=== PATIENT | female | born 1930 | race Caucasian/White ===

== ENCOUNTER 2017-11-02 16:10 | Inpatient (IN) | payer BC, OTHER ==
--- NOTE | 2017-11-02 16:14 | PDOC ---
Rapid Medical Evaluation Time Seen by Provider: 11/02/17 16:12 Medical Evaluation: Allergies Allergy/AdvReac Type Severity Reaction Status Date / Time No Known Allergies Allergy Verified 12/09/14 10:28 11/02/17 16:12 I have performed a brief in-person evaluation of this patient. The patient presents with a chief complaint of: headaches x 2 weeks, vision has been double and blurry for 2 weeks, weak, sleeping all day, no appetite - saw Dr. Cuba on for abx for sinusitis, saw ENT on , sent for CT on Sunday and was negative, currently denies headache, "i'm just tired and weak" Pertinent physical exam findings: well appearing I have ordered the following: labs, urine, ekg The patient will proceed to the ED for further evaluation. Discharge Disposition - Diagnosis Fatigue - Referrals - Patient Instructions - Post Discharge Activity
[2017-11-02 16:18] VITALS: BMI 32.8
--- NOTE | 2017-11-02 16:54 | PDOC ---
History of Present Illness - General Chief Complaint: Weakness Stated Complaint: PCP SENT/ADMISSION Time Seen by Provider: 11/02/17 16:12 - History of Present Illness Initial Comments: 11/02/17 17:10 Ms. Elmore is an 87 yo female w/ pmh of HTN who presents for evaluation of 2 weeks of chronic headache with generalized weakness. She reports that she had initially presented to her PCP (Dr. Cuba) for congestion and received an antibiotic but that this did not help. She then presented to ENT (Dr. Peterson) and had a CT 3 days after a 1 day history of blurry vision (negative). She presents today as she went again to PCP for evaluation and was told to come to ER for further evaluation. The patient denies chest pain, shortness of breath, headache and dizziness. Denies fever, chills, nausea, vomit, diarrhea and constipation. Denies dysuria, frequency, urgency and hematuria. Allergies: NKDA Past History - Past Medical History Allergies/Adverse Reactions: Allergies Allergy/AdvReac Type Severity Reaction Status Date / Time No Known Allergies Allergy Verified 11/02/17 16:12 Home Medications: Ambulatory Orders Calcium Carbonate [Calcium] 600 mg PO DAILY 12/09/14 Cholecalciferol (Vitamin D3) [Vitamin D3] 1,000 unit PO DAILY 12/09/14 Folic Acid - 1 mg PO DAILY 12/09/14 Gabapentin [Neurontin -] 400 mg PO ASDIR 12/09/14 Lisinopril/Hydrochlorothiazide [Lisinopril-Hctz 20-25 mg Tab] 1 each PO DAILY [place]-3 Fatty Acids [Fish Oil] 0 mg PO DAILY 12/09/14 Famotidine [Acid Director Of [employer] Medicine] 20 mg PO BID 11/02/17 COPD: No HTN: Yes Other medical history: BROKEN ANKLE - Suicide/Smoking/Psychosocial Hx Smoking History: Never smoked Information on smoking cessation initiated: No Hx Alcohol Use: Yes Drug/Substance Use Hx: No Review of Systems - Review of Systems Comments:: 11/02/17 21:11 GENERAL/CONSTITUTIONAL: +Generalized weakness. No fever or chills. HEAD, EYES, EARS, NOSE AND THROAT: +1 day of blurry vision as described. No ear pain or discharge. No sore throat. CARDIOVASCULAR: No chest pain or shortness of breath RESPIRATORY: No cough, wheezing, or hemoptysis. GASTROINTESTINAL: No nausea, vomiting, diarrhea or constipation. GENITOURINARY: No dysuria, frequency, or change in urination. MUSCULOSKELETAL: No joint or muscle swelling or pain. No neck or back pain. SKIN: No rash NEUROLOGIC: No headache, vertigo, loss of consciousness, or change in strength/ sensation. ENDOCRINE: No increased thirst. No abnormal weight change HEMATOLOGIC/LYMPHATIC: No anemia, easy bleeding, or history of blood clots. ALLERGIC/IMMUNOLOGIC: No hives or skin allergy. *Physical Exam - Vital Signs Last Vital Signs Temp Pulse Resp BP Pulse Ox 98.8 F 100 H 18 136/75 100 11/02/17 16:13 11/02/17 16:13 11/02/17 16:13 11/02/17 16:13 11/02/17 16:13 - Physical Exam Comments: 11/02/17 21:12 GENERAL: Awake, alert, and fully oriented, in no acute distress HEAD: No signs of trauma, normocephalic, atraumatic EYES: PERRLA, EOMI, sclera anicteric, conjunctiva clear ENT: Auricles normal inspection, hearing grossly normal, nares patent, oropharynx clear without exudates. Moist mucosa NECK: Normal ROM, supple, no lymphadenopathy, JVD, or masses LUNGS: No distress, speaks full sentences, clear to auscultation bilaterally HEART: Regular rate and rhythm, normal S1 and S2, no murmurs, rubs or gallops, peripheral pulses normal and equal bilaterally. ABDOMEN: Soft, nontender, normoactive bowel sounds. No guarding, no rebound. No masses EXTREMITIES: Normal inspection, Normal range of motion, no edema. No clubbing or cyanosis. NEUROLOGICAL: Cranial nerves II through XII grossly intact. Normal speech, normal gait, no focal sensorimotor deficits SKIN: Warm, Dry, normal turgor, no rashes or lesions noted. ED Treatment Course - LABORATORY CBC & Chemistry Diagram: 11/02/17 16:48 11/02/17 16:48 Medical Decision Making - Medical Decision Making 11/02/17 21:26 Ms. Elmore is an 87 yo female w/ pmh as described who presents for evaluation of new onset fatigue with a 1 day history of vision changes. Broad workup started; CT held as patient had one earlier this week with negative findings. Patient noted to have elevated PT with INR, INR, WBC, and Liver enzymes. Discussed with PCP who would like admission for workup of findings with additional abdominal CT. Will comply. Laboratory Results - last 24 hr 11/02/17 11/02/17 11/02/17 16:15 16:48 16:48 WBC RBC Hgb Hct MCV MCH MCHC RDW Plt Count MPV Neutrophils % Lymphocytes % Monocytes % Eosinophils % Basophils % PT with INR 20.00 H INR 1.77 H Sodium Potassium Chloride Carbon Dioxide Anion Gap BUN Creatinine Creat Clearance w eGFR Random Glucose Lactic Acid Calcium Magnesium 1.3 L Total Bilirubin AST ALT Alkaline Phosphatase Creatine Kinase Troponin I B-Natriuretic Peptide Total Protein Albumin Urine Color Yellow Urine Appearance Slcloudy Urine pH 5.0 Ur Specific Winner 1.014 Urine Protein Negative Urine Glucose (UA) Negative Urine Ketones Negative Urine Blood 1+ H Urine Nitrite Negative Urine Bilirubin Negative Urine Urobilinogen Negative Ur Leukocyte Esterase Negative Urine WBC (Auto) 1 Urine RBC (Auto) 1 Ur Epithelial Cells Rare Urine Mucus Rare 11/02/17 11/02/17 11/02/17 16:48 16:48 16:48 WBC 13.1 H RBC 3.50 L Hgb 12.7 Hct 35.6 MCV 101.9 H MCH 36.5 H MCHC 35.8 RDW 12.5 Plt Count 279 MPV 9.2 Neutrophils % 71.4 Lymphocytes % 15.7 Monocytes % 11.0 H Eosinophils % 1.5 Basophils % 0.4 PT with INR INR Sodium 132 L Potassium 3.7 Chloride 94 L Carbon Dioxide 28 Anion Gap 10 BUN 19 H Creatinine 0.8 Creat Clearance w eGFR > 60 Random Glucose 132 H Lactic Acid Calcium 8.2 L Magnesium Total Bilirubin 0.5 AST 61 H ALT 96 H Alkaline Phosphatase 56 Creatine Kinase 47 Troponin I < 0.02 B-Natriuretic Peptide 309.33 Total Protein 6.8 Albumin 2.3 L Urine Color Urine Appearance Urine pH Ur Specific Winner Urine Protein Urine Glucose (UA) Urine Ketones Urine Blood Urine Nitrite Urine Bilirubin Urine Urobilinogen Ur Leukocyte Esterase Urine WBC (Auto) Urine RBC (Auto) Ur Epithelial Cells Urine Mucus 11/02/17 17:44 WBC RBC Hgb Hct MCV MCH MCHC RDW Plt Count MPV Neutrophils % Lymphocytes % Monocytes % Eosinophils % Basophils % PT with INR INR Sodium Potassium Chloride Carbon Dioxide Anion Gap BUN Creatinine Creat Clearance w eGFR Random Glucose Lactic Acid 1.4 Calcium Magnesium Total Bilirubin AST ALT Alkaline Phosphatase Creatine Kinase Troponin I B-Natriuretic Peptide Total Protein Albumin Urine Color Urine Appearance Urine pH Ur Specific Winner Urine Protein Urine Glucose (UA) Urine Ketones Urine Blood Urine Nitrite Urine Bilirubin Urine Urobilinogen Ur Leukocyte Esterase Urine WBC (Auto) Urine RBC (Auto) Ur Epithelial Cells Urine Mucus *DC/Admit/Observation/Transfer Diagnosis at time of Disposition: Weakness Fatigue Qualifiers: Fatigue type: unspecified Qualified Code(s): R53.83 - Other fatigue Hematuria Qualifiers: Hematuria type: unspecified type Qualified Code(s): R31.9 - Hematuria, unspecified - Discharge Dispostion Admit: Yes - Referrals Referrals: Viviana Cuba [Primary Care Provider] - - Patient Instructions - Post Discharge Activity
--- NOTE | 2017-11-02 17:18 | PDOC ---
Attending Attestation - Resident Resident Name: Nixon Messina - ED Attending Attestation I have performed the following: I have examined & evaluated the patient, The case was reviewed & discussed with the resident, I agree w/resident's findings & plan, Exceptions are as noted <Vesta Ferraro - Last Filed: 11/02/17 17:17> - HPI HPI: 11/02/17 17:26 The patient is a 87 year old female, with a significant past medical history of hypertension, who presents to the emergency department with 2 weeks of chronic headache and generalized weakness. Patient reports she was being treated for sinusitis, with antibiotics and Claritin by her PCP, Dr. Viviana Cuba. Patient reports minimal improvement of symptoms, and states she followed up with ENT, Dr. Peterson, who ordered a head CT which was negative. Patient reports she finished her Antibiotic course 2 days ago, and since has noticed mild loose stools and decreased appetite. Patient reports she has lost 5 pounds over the past week. She reports associated generalized nonfocal weakness. She states she had an episode of blurrry vision weeks ago, prior to head CT, which has since resolved. She denies any abdominal pain, nausea, vomiting, constipation, melena , or hematochezia. She denies any recent fever, chills, headache, dizziness, or cough. She denies any dysuria, hematuria, frequency, or urgency. She denies any recent travel or sick contacts. - Physicial Exam PE: 11/02/17 21:22 GENERAL: Awake, alert, and fully oriented, in no acute distress HEAD: No signs of trauma EYES: PERRLA, EOMI, sclera anicteric, conjunctiva clear ENT: Auricles normal inspection, hearing grossly normal, nares patent. Moist mucosa NECK: Normal ROM, supple, no lymphadenopathy, JVD, or masses LUNGS: Breath sounds equal, clear to auscultation bilaterally. No wheezes, and no crackles HEART: Regular rate and rhythm, normal S1 and S2, no murmurs, rubs or gallops ABDOMEN: Soft, nontender, normoactive bowel sounds. No guarding, no rebound. No masses EXTREMITIES: Normal range of motion, no edema. No clubbing or cyanosis. No cords, erythema, or tenderness. DP/PT pulses 2+ and symmetric. NEUROLOGICAL: Moves all extremities. Normal speech, normal gait SKIN: Warm, Dry, normal turgor, no rashes or lesions noted. - Medical Decision Making 11/02/17 17:27 First call placed to Dr. Cuba at 17:18. Awaiting call back. Case discussed with Dr. Cuba at 17:20. Second call placed to Dr. Cuba at 21:14. Awaiting call back. Case discussed with Dr. Cuba at 21:21. <Topher Urena - Last Filed: 11/02/17 21:23> Heart Score/ECG Review #1 General ECG Interpretation: Sinus Rhythm, Normal Rate (90), Normal Intervals, No acute ischemic changes <Vesta Ferraro - Last Filed: 11/02/17 17:17> Critical Care Time/MDM Note - Medical Decision Making Note: 11/02/17 17:28 Documentation prepared by Topher Urena, acting as front office medical assistant for Vesta Ferraro MD. <Topher Urena - Last Filed: 11/02/17 21:23>
[2017-11-02 17:49] LABS: BASO % 0.4 % (0-2.0); EOS % 1.5 % (0-4.5); HEMATOCRIT 35.6 % (32.4-45.2); HEMOGLOBIN 12.7 GM/dL (10.7-15.3); LYMPH % 15.7 % (8-40); MCH 36.5 pg (25.7-33.7); MCHC 35.8 g/dl (32.0-36.0); MEAN CELL VOLUME 101.9 fl (80-96); MEAN PLT VOLUME 9.2 fl (7.5-11.1); NEUT % 71.4 % (42.8-82.8); PLATELET COUNT 279 K/MM3 (134-434); RDW 12.5 % (11.6-15.6); WHITE BLOOD COUNT 13.1 K/mm3 (4.0-10.0)
[2017-11-02 17:50] LABS: ALBUMIN 2.3 g/dl (3.4-5.0); ANION GAP 10 (8-16); BILIRUBIN,TOTAL 0.5 mg/dL (0.2-1.0); BLOOD UREA NITROGEN 19 mg/dL (7-18); CALCIUM 8.2 mg/dL (8.5-10.1); CHLORIDE 94 mmol/L (98-107); CO2 28 mmol/L (21-32); CREATININE 0.8 mg/dL (0.55-1.02); GLUCOSE,RANDOM 132 mg/dL (74-106); POTASSIUM 3.7 mmol/L (3.5-5.1); SGOT/AST 61 U/L (15-37); SGPT/ALT 96 U/L (12-78); SODIUM 132 mmol/L (136-145); TOT PROT 6.8 g/dl (6.4-8.2)
[2017-11-02 17:54] LABS: ALK PHOS 56 U/L (45-117)
[2017-11-02 18:05] LABS: INR 1.77 (0.82-1.09)
[2017-11-02] MEDS ORDERED: SODIUM CHLORIDE 1,000 ML IV STA (19:04)
[2017-11-02 20:46] LABS: URINE APPEARANCE SLCLOUDY; URINE BILIRUBIN NEGATIVE (<2.0 mg/dL); URINE COLOR YELLOW; URINE GLUCOSE (UA) NEGATIVE (NEGATIVE); URINE KETONE NEGATIVE (NEGATIVE); URINE LEUK ESTERASE NEGATIVE (NEGATIVE); URINE NITRITE NEGATIVE (NEGATIVE); URINE PROTEIN NEGATIVE (NEGATIVE); URINE UROBILINOGEN NEGATIVE mg/dL (0.2-1.0)
[2017-11-02 20:56] LABS: EPI CELLS RARE /HPF (FEW); URINE MUCUS RARE
[2017-11-02] MEDS ORDERED: GABAPENTIN 400 MG CAPSULE (FP) PO SCH (21:30)
[2017-11-02] MEDS ORDERED: GABAPENTIN 100 MG CAPSULE (FP) ONE (21:31)
--- NOTE | 2017-11-03 06:52 | HP ---
Admitting History and Physical - Primary Care Physician PCP: Viviana Cuba S - Admission Chief Complaint: general weakness History of Present Illness: Ms. Elmore is an 87 yo female hx of HTN MDS, hemochromatosis who presents for evaluation of 2 weeks of chronic headache with generalized weakness. She initially presented to me for frontal headaches and sinus congestion and received an antibiotic but that this did not help. She then presented to ENT ( Dr. Peterson) and had a CT 3 days after a 1 day history of blurry vision (negative). Her granddaughter called the office that Edwina feels very weak and not herself, was told to radha in the office where she looked weak and sick and was sent to ER for evaluation. She does not have headaches anymore, no double vision but reports some blurred vision with both eyes. No fever/chills no other c/o. History Source: Patient, Family Member, Medical Record Limitations to Obtaining History: No Limitations - Past Medical History Cardiovascular: Yes: HTN Heme/Onc: Yes: Hemochromatosis Musculoskeletal: Yes: Osteoarthritis - Advance Directives Advance Directives: Yes: Health Care Proxy - Smoking History Smoking history: Never smoked - Alcohol/Substance Use Hx Alcohol Use: Yes History of Substance Use: reports: None - Social History Usual Living Arrangement: Yes: Alone ADL: Independent History of Recent Travel: No Home Medications - Allergies Allergies/Adverse Reactions: Allergies Allergy/AdvReac Type Severity Reaction Status Date / Time No Known Allergies Allergy Verified 11/02/17 16:12 - Home Medications Home Medications: Ambulatory Orders Calcium Carbonate [Calcium] 600 mg PO DAILY 12/09/14 Cholecalciferol (Vitamin D3) [Vitamin D3] 1,000 unit PO DAILY 12/09/14 Folic Acid - 1 mg PO DAILY 12/09/14 Gabapentin [Neurontin -] 400 mg PO PRN 12/09/14 Lisinopril/Hydrochlorothiazide [Lisinopril-Hctz 20-25 mg Tab] 1 each PO DAILY [place]-3 Fatty Acids [Fish Oil] 0 mg PO DAILY 12/09/14 Famotidine [Acid [place] [employer]er] 20 mg PO PRN 11/02/17 Family Disease History - Family Disease History Family History: Unremarkable Review of Systems - Review of Systems Constitutional: reports: Loss of Appetite, Weakness. denies: Chills, Fever, Lethargy Eyes: reports: Blurred Vision. denies: Blind Spots, Double Vision, Eye Pain HENT: denies: Ear Pain, Epistaxis Neck: denies: Stiffness, Tenderness Cardiovascular: denies: Chest Pain, Edema, Shortness of Breath Respiratory: denies: Cough, SOB Gastrointestinal: denies: Abdominal Pain, Constipation, Diarrhea, Vomiting Genitourinary: denies: Dysuria, Flank Pain Musculoskeletal: denies: Back Pain, Joint Pain Integumentary: denies: Rash, Wound Neurological: reports: Headache, Weakness. denies: Change in LOC, Change in Speech, Confusion, Dizziness, Parasthesia, Unsteady Gait Endocrine: denies: Excessive Sweating Hematology/Lymphatic: denies: Easily Bruised, Excessive Bleeding Psychiatric: denies: Anxiety, Depression, Suicidal Physical Examination Vital Signs: Vital Signs Temperature 99.0 F 11/03/17 05:50 Pulse Rate 86 11/03/17 05:50 Respiratory Rate 20 11/03/17 05:50 Blood Pressure 117/51 11/03/17 05:50 O2 Sat by Pulse Oximetry (%) 96 11/03/17 01:30 Constitutional: Yes: No Distress, Calm Eyes: Yes: Conjunctiva Clear HENT: Yes: Atraumatic Neck: Yes: Supple Cardiovascular: Yes: Regular Rate and Rhythm Respiratory: Yes: CTA Bilaterally Gastrointestinal: Yes: Soft. No: Tenderness Renal/: No: CVA Tenderness - Left, CVA Tenderness - Right Musculoskeletal: No: Joint Stiffness, Joint Swelling Extremities: No: Cold, Cool, Cyanosis Edema: No Integumentary: No: Rash, Venous Stasis Changes Neurological: Yes: WNL, Alert, Oriented ...Motor Strength: WNL Psychiatric: Yes: WNL, Alert, Oriented. No: Agitated, Suicidal Ideation Labs: CBC, BMP 11/02/17 16:48 11/02/17 16:48 Imaging - Results Chest X-ray: Report Reviewed Other: Report Reviewed Assessment/Plan 87 yo female hx of HTN MDS hemochromatosis who presents for evaluation of 2 weeks of chronic headache with generalized weakness. r/o CVA? brain aneurysm, r/o infection r/o autoimmune ds admit IVF check labs, high WBC but CXR and UA negative and pt afebrile; hold antibiotics fo now awaiting cultures brain MRI will ask neurology in consult and heme also noted to have high LFTs and coagulopathy high INR - GI eval r/o liver failue / sepsis; abdomen CT /o liver mets tests and previous consults reviewed and d/w pt and granddaughter, d/w ER dr rodriguez PFX DVT pfx TEDS SCDS no sq heparine b/o high INR t time 75 min
[2017-11-03 08:09] LABS: INR 1.88 (0.82-1.09); PROTHROMBIN TIME (PATIENT) 21.2 SEC (9.98-11.88)
[2017-11-03 08:10] LABS: BASO % 0.4 % (0-2.0); EOS % 3.1 % (0-4.5); HEMATOCRIT 32.8 % (32.4-45.2); HEMOGLOBIN 11.4 GM/dL (10.7-15.3); LYMPH % 15.3 % (8-40); MCH 35.5 pg (25.7-33.7); MCHC 34.8 g/dl (32.0-36.0); MEAN PLT VOLUME 8.7 fl (7.5-11.1); MONO % 11.6 % (3.8-10.2); NEUT % 69.6 % (42.8-82.8); PLATELET COUNT 251 K/MM3 (134-434); RBC 3.22 M/mm3 (3.60-5.2); RDW 11.8 % (11.6-15.6); WHITE BLOOD COUNT 12.2 K/mm3 (4.0-10.0)
[2017-11-03 08:20] LABS: ALBUMIN 2.1 g/dl (3.4-5.0); ALK PHOS 46 U/L (45-117); ANION GAP 8 (8-16); BILIRUBIN,TOTAL 0.5 mg/dL (0.2-1.0); BLOOD UREA NITROGEN 15 mg/dL (7-18); CALCIUM 8.1 mg/dL (8.5-10.1); CHLORIDE 98 mmol/L (98-107); CO2 29 mmol/L (21-32); CREATININE 0.7 mg/dL (0.55-1.02); GLUCOSE,RANDOM 118 mg/dL (74-106); POTASSIUM 3.8 mmol/L (3.5-5.1); SGOT/AST 54 U/L (15-37); SGPT/ALT 82 U/L (12-78); SODIUM 135 mmol/L (136-145)
[2017-11-03] MEDS: SODIUM CHLORIDE 1,000 ML IV SCH (08:22)
--- NOTE | 2017-11-03 08:46 | EKG ---
Test Reason : Blood Pressure : / mmHG Vent. Rate : 095 BPM Atrial Rate : 095 BPM P-R Int : 150 ms QRS Dur : 078 ms QT Int : 356 ms P-R-T Axes : 063 -05 065 degrees QTc Int : 447 ms SINUS RHYTHM WITH PREMATURE ATRIAL COMPLEXES OTHERWISE NORMAL ECG WHEN COMPARED WITH ECG OF 17-AUG-2010 14:48, PREMATURE ATRIAL COMPLEXES ARE NOW PRESENT VENT. RATE HAS INCREASED BY 31 BPM Confirmed by TYRONE WALDEN, YOUNG ([id number]) on 11/03/2017 8:46:19 AM Referred By: Confirmed By:YOUNG HANSEN MD
[2017-11-03] MEDS: CALCIUM (OYSTER SHELL) 500 MG TABLET (FP) PO SCH (09:10)
[2017-11-03] MEDS: CHOLECALCIFEROL (VITAMIN D3) 1,000 UNIT TABLET (FP) PO SCH (09:10)
[2017-11-03] MEDS: FOLIC ACID 1 MG TABLET (FP) PO SCH (09:10)
[2017-11-03] MEDS ORDERED: LISINOPRIL 5 MG TABLET (FP) PO SCH (10:00)
[2017-11-03] MEDS ORDERED: PATIENT'S OWN MEDICATION (NON-FORMULARY) (Calcium Carbonate [Calcium] 600 MG) PO SCH (10:00)
--- NOTE | 2017-11-03 14:20 | PN ---
Progress Note (short form) - Note Progress Note: GI CONSULTATION PT SEEN AND EXAMINED FAMILY MEMEBER AT BEDSIDE TO AID WITH HX PLEASE SEE THE COMPLETE CONSULT DICTATION NO EVIDENCE OF FULMINANT LIVER FAILURE AT THIS TIME F/U LFT'S PLEASE D/C ALL UNNECESSARY MEDS WILL NEED F/U LIVER IMAGING TO COMPARE TO SONO OF 08/2017---CAN BE DONE OUTPATIENT THANKS, MD ANOOP
[2017-11-03] MEDS ORDERED: GABAPENTIN 400 MG CAPSULE (FP) PO PRN ×2 (14:53→15:08)
--- NOTE | 2017-11-03 15:07 | CONS ---
GASTROENTEROLOGY CONSULTATION DATE OF CONSULTATION: 11/03/2017 I was asked by Dr. Cuba to evaluate the patient for elevated liver enzymes. The patient is an 87-year-old white female who is a limited informant of her medical history. A lot of it comes from the chart and her relative at the bedside. Apparently, the patient has a past medical history. She reports only a history of hypertension, for which she takes lisinopril, and she states that she has had no GI issues in the past. She has seen Dr. Chávez in the past as an outpatient for colonoscopy years ago that she believes was normal. She says she was complaining of chronic headache and head pain for the past 2 weeks and she had been placed on Claritin and amoxicillin by Dr. Cuba for a possible sinusitis. She had minimal improvement of symptoms. She was seen by Dr. Peterson who ordered a CAT scan of the head which was negative. She finished her antibiotics 2 days ago and had had mild stools, decreased appetite. She lost some weight and she had some nonfocal weakness. She reported blurry vision which has since resolved. Apparently, she was admitted to the hospital for evaluation, was noted to have minimal evaluation of her liver enzymes, and we are called for evaluation. She tells me she has had no history of liver disease in the past. She has had no history of hepatitis. No drug usage or significant alcohol intake. She has never been told of liver disease or hepatitis. She does not think she has had liver enzyme elevation in the past, but she is not certain. The patient does not smoke either and she cannot recall her outpatient medications. She believes that all she takes is some lisinopril and some vitamins. The patient said that she has had a cholecystectomy years ago. She has no known drug allergies. Her medications according to the hospital chart include calcium, vitamin D, folic acid, Neurontin, lisinopril, hydrochlorothiazide, fish oil, and Pepcid. PHYSICAL EXAMINATION: General: The patient on physical exam is an overweight woman in no acute distress. She is moving about easily, lying in bed. She is alert and oriented. HEENT: Her sclerae are anicteric. Neck: Supple. Heart: Regular. Abdomen: Obese and quite soft. Bowel sounds are active. There are no masses, rebound or guarding. There is no tenderness to deep palpation. According to the EMR, she did have a sonogram performed of the abdomen. This was in August 2017 and she was noted to have diffuse fatty infiltration of the liver with a left lobe cyst, a possible hypoechoic mass in the caudate lobe but that was felt to represent focal-fatty sparing. In addition, the patient was not noted to have any biliary ductal dilatation or any evidence of reversal of flow in the portal vein. There were no significant findings noted on that study. In review of her lab data, it is noted that in 2010 was her last LFTs in this computer system. Her AST was 31 on admission. It is now 61. Her ALT was 22. It is now 96. However, looking at the rest of her current liver enzymes, everything is normal. It is noted that her total bilirubin is 0.5 and her alkaline phosphatase is 46. Her SMA-7 is unremarkable. Her coagulation studies, she has an INR of 1.88. Her white count was 13 on admission, it is now 12, with a hemoglobin and hematocrit of 11/32, and MCV of 102, and a platelet count of 251,000. So, it is my impression that the patient is an 87-year-old white female who is obese who likely has some fatty liver. She has hypertension without significant past medical history. She is status post cholecystectomy. She had a sonogram in August noting what is likely focal-fatty sparing with a fatty liver. At this time, she has a mild transaminitis of unclear etiology. It is possible it could be due to a recent infection that she had. It is possible that she had a viral element. It is possible that it was the antibiotic. It is unclear whether she was on amoxicillin or Augmentin where the latter is known to cause LFT enzyme elevation. It is unclear if it is just due to underlying worsening of her fatty liver. However, the fact that her coagulation studies appear stable and her bilirubin is perfectly normal at 0.5 there is currently no evidence of liver failure for which we were called to evaluate. Speaking with the family member, I have explained that I think as her medical condition improves and some of these medications are tapered off I think her liver enzymes will normalize. If they do not, then we can proceed with further evaluation. At that time, it would be more appropriate to send off chronic liver markers, although at age 87 I doubt she has new onset of liver disease, but we would want to follow up sonogram and/or CAT scan to assess the possible hypoechoic lesion in the caudate lobe of the liver. However, that could be done as an outpatient. The patient appears quite comfortable. At this time, I would recommend continuing to follow the LFTs and discontinue any unnecessary medication. JASON DAVALOS M.D. NEETU/[id number]
[2017-11-03] MEDS: ACETAMINOPHEN 325 MG TABLET (FP) PO PRN (17:25)
--- NOTE | 2017-11-03 17:28 | CONSULT ---
Consult - text type - Consultation Consultation Note: The patient is a 87 year old female, with a significant past medical history of hypertension, who presents with 2 weeks of chronic headache and generalized weakness. Patient reports she was treated for sinusitis, with antibiotics and Claritin by her PCP, Dr. Cecile Cuba.She was seen by ENT, Dr. Peterson, who ordered a head CT which was negative.Patient reports she has lost 5 pounds over the past week. She reports associated generalized nonfocal weakness. She states she had an episode of blurrry vision weeks ago, prior to head CT, which has since resolved. She denies any abdominal pain, nausea, vomiting, constipation, melena, or hematochezia. PMH HTN Last Vital Signs Temp Pulse Resp BP Pulse Ox 98.2 F 83 20 139/72 95 11/03/17 14:19 11/03/17 14:19 11/03/17 14:19 11/03/17 14:19 11/03/17 09:00 Cor: RSR, No murmurs, No gallops Lungs: Clear to P&A Abd: Soft, Normal bowel sounds, No organomegaly Ext:No significant edema No breast masses Laboratory Last Values WBC 12.2 K/mm3 (4.0-10.0) H 11/03/17 07:35 RBC 3.22 M/mm3 (3.60-5.2) L 11/03/17 07:35 Hgb 11.4 GM/dL (10.7-15.3) D 11/03/17 07:35 Hct 32.8 % (32.4-45.2) 11/03/17 07:35 MCV 102.0 fl (80-96) H 11/03/17 07:35 MCH 35.5 pg (25.7-33.7) H 11/03/17 07:35 MCHC 34.8 g/dl (32.0-36.0) 11/03/17 07:35 RDW 11.8 % (11.6-15.6) 11/03/17 07:35 Plt Count 251 K/MM3 (134-434) 11/03/17 07:35 MPV 8.7 fl (7.5-11.1) 11/03/17 07:35 Neutrophils % 69.6 % (42.8-82.8) 11/03/17 07:35 Lymphocytes % 15.3 % (8-40) 11/03/17 07:35 Monocytes % 11.6 % (3.8-10.2) H 11/03/17 07:35 Eosinophils % 3.1 % (0-4.5) D 11/03/17 07:35 Basophils % 0.4 % (0-2.0) 11/03/17 07:35 ESR 99 mm/hr (0-30) H 11/02/17 21:33 PT with INR 21.20 SEC (9.98-11.88) H 11/03/17 07:35 INR 1.88 (0.82-1.09) H 11/03/17 07:35 Fibrinogen > 646.0 mg/dL (238-498) H 11/03/17 15:48 D-Dimer 1875 ng/ml (0-500) H 11/03/17 15:48 Sodium 135 mmol/L (136-145) L 11/03/17 07:35 Potassium 3.8 mmol/L (3.5-5.1) 11/03/17 07:35 Chloride 98 mmol/L (98-107) 11/03/17 07:35 Carbon Dioxide 29 mmol/L (21-32) 11/03/17 07:35 Anion Gap 8 (8-16) 11/03/17 07:35 BUN 15 mg/dL (7-18) 11/03/17 07:35 Creatinine 0.7 mg/dL (0.55-1.02) 11/03/17 07:35 Creat Clearance w eGFR > 60 (>60) 11/03/17 07:35 Random Glucose 118 mg/dL (74-106) H 11/03/17 07:35 Lactic Acid 1.4 mmol/L (0.0-2.0) 11/02/17 17:44 Calcium 8.1 mg/dL (8.5-10.1) L 11/03/17 07:35 Magnesium 1.3 mg/dL (1.8-2.4) L 11/02/17 16:15 Total Bilirubin 0.5 mg/dL (0.2-1.0) 11/03/17 07:35 AST 54 U/L (15-37) H 11/03/17 07:35 ALT 82 U/L (12-78) H 11/03/17 07:35 Alkaline Phosphatase 46 U/L (45-117) 11/03/17 07:35 Ammonia 10.57 umol/L (11-32) L 11/02/17 21:33 Creatine Kinase 47 IU/L (26-192) 11/02/17 16:48 Troponin I < 0.02 ng/ml (0.00-0.05) 11/02/17 16:48 C-Reactive Protein 13.8 MG/DL (0.00-0.3) H 11/02/17 21:33 B-Natriuretic Peptide 309.33 pg/ml (5-450) 11/02/17 16:48 Total Protein 6.0 g/dl (6.4-8.2) L 11/03/17 07:35 Albumin 2.1 g/dl (3.4-5.0) L 11/03/17 07:35 Urine Color Yellow 11/02/17 16:48 Urine Appearance Slcloudy 11/02/17 16:48 Urine pH 5.0 (5.0-8.0) 11/02/17 16:48 Ur Specific [place] 1.014 (1.001-1.035) 11/02/17 16:48 Urine Protein Negative (NEGATIVE) 11/02/17 16:48 Urine Glucose (UA) Negative (NEGATIVE) 11/02/17 16:48 Urine Ketones Negative (NEGATIVE) 11/02/17 16:48 Urine Blood 1+ (NEGATIVE) H 11/02/17 16:48 Urine Nitrite Negative (NEGATIVE) 11/02/17 16:48 Urine Bilirubin Negative (<2.0 mg/dL) 11/02/17 16:48 Urine Urobilinogen Negative mg/dL (0.2-1.0) 11/02/17 16:48 Ur Leukocyte Esterase Negative (NEGATIVE) 11/02/17 16:48 Urine WBC (Auto) 1 /hpf (3-5) 11/02/17 16:48 Urine RBC (Auto) 1 /hpf (0-3) 11/02/17 16:48 Ur Epithelial Cells Rare /HPF (FEW) 11/02/17 16:48 Urine Mucus Rare 11/02/17 16:48 Home Medication List Medication Instructions Recorded Confirmed Type Calcium Carbonate [Calcium] 600 mg PO DAILY 12/09/14 11/02/17 History Cholecalciferol (Vitamin D3) 1,000 unit PO DAILY 12/09/14 11/02/17 History [Vitamin D3] Folic Acid - 1 mg PO DAILY 12/09/14 11/02/17 History Gabapentin [Neurontin -] 400 mg PO PRN 12/09/14 11/03/17 History Lisinopril/Hydrochlorothiazide 1 each PO DAILY 12/09/14 11/02/17 History [Lisinopril-Hctz 20-25 mg Tab] [place]-3 Fatty Acids [Fish Oil] 0 mg PO DAILY 12/09/14 11/02/17 History Famotidine [Acid Anchor Tacker] 20 mg PO PRN 11/02/17 11/03/17 History Active Medications Generic Name Dose Route Start Last Admin Trade Name Freq PRN Reason Stop Dose Admin Acetaminophen 650 mg 11/03/17 17:20 11/03/17 17:25 Tylenol - PO 650 mg Q6H PRN Administration FEVER Calcium Carbonate 500 mg 11/03/17 10:00 11/03/17 09:10 Os-Issa 500mg - PO 500 mg DAILY MAKAYLA Administration Cholecalciferol 1,000 unit 11/03/17 10:00 11/03/17 09:10 Vitamin D3 - PO 1,000 unit DAILY MAKAYLA Administration Folic Acid 1 mg 11/03/17 10:00 11/03/17 09:10 Folic Acid - PO 1 mg DAILY MAKAYLA Administration Gabapentin 400 mg 11/03/17 15:08 Neurontin - PO HS PRN INSOMNIA Sodium Chloride 1,000 mls @ 42 mls/hr 11/03/17 07:00 11/03/17 08:22 Normal Saline - IV 42 mls/hr ASDIR MAKAYLA Administration Lisinopril 10 mg 11/03/17 13:43 Prinivil PO DAILY MAKAYLA A/P 87 y/o patient with h/o HTN, coming in with 2 weeks of headaches , generalized weaknes, blurry vision ESR 99/elevated CRP/mildly elevated LFTS cultures pending CT a/p non contrast --fatty liver MRI brain non contrast of brain --microvascular ischemic changes CT chest pending rheumatology consult --temporal arteritis?? but headaches have resolved check SIFE/UPEP/CECILE/RF/LDH
--- NOTE | 2017-11-04 06:12 | PN ---
Progress Note, Physician Chief Complaint: events and tests noted and d/w pt and grand daughter at bedside pt feels the same no new changes - Current Medication List Current Medications: Active Medications Acetaminophen (Tylenol -) 650 mg PO Q6H PRN PRN Reason: FEVER Last Admin: 11/03/17 17:25 Dose: 650 mg Calcium Carbonate (Os-Issa 500mg -) 500 mg PO DAILY [facility] Last Admin: 11/03/17 09:10 Dose: 500 mg Cholecalciferol (Vitamin D3 -) 1,000 unit PO DAILY [facility] Last Admin: 11/03/17 09:10 Dose: 1,000 unit Folic Acid (Folic Acid -) 1 mg PO DAILY [facility] Last Admin: 11/03/17 09:10 Dose: 1 mg Gabapentin (Neurontin -) 400 mg PO HS PRN PRN Reason: INSOMNIA Sodium Chloride (Normal Saline -) 1,000 mls @ 42 mls/hr IV ASDIR [facility] Last Admin: 11/03/17 08:22 Dose: 42 mls/hr Lisinopril (Prinivil) 10 mg PO DAILY [facility] Phytonadione (Aqua Mephyton Injection -) 5 mg SQ DAILY [facility] Stop: 11/06/17 10:01 - Objective Vital Signs: Vital Signs Temperature 98.7 F 11/04/17 01:46 Pulse Rate 74 11/04/17 01:46 Respiratory Rate 18 11/04/17 01:46 Blood Pressure 144/73 11/04/17 01:46 O2 Sat by Pulse Oximetry (%) 95 11/03/17 20:52 Constitutional: Yes: No Distress, Calm Eyes: Yes: Conjunctiva Clear HENT: Yes: Atraumatic Neck: Yes: Supple Cardiovascular: Yes: Regular Rate and Rhythm Respiratory: Yes: CTA Bilaterally Gastrointestinal: Yes: Soft. No: Tenderness Genitourinary: No: CVA Tenderness - Left, CVA Tenderness - Right Musculoskeletal: No: Joint Stiffness, Joint Swelling Extremities: No: Cold, Cool Edema: No Integumentary: No: Rash, Venous Stasis Changes Neurological: Yes: WNL, Alert, Oriented ...Motor Strength: WNL Psychiatric: Yes: WNL, Alert, Oriented. No: Agitated, Suicidal Ideation Labs: CBC, BMP 11/03/17 07:35 11/03/17 07:35 INR, PTT INR 1.88 (0.82-1.09) H 11/03/17 07:35 Fibrinogen > 646.0 mg/dL (238-498) H 11/03/17 15:48 - ....Imaging Cat Scan: Report Reviewed MRI: Report Reviewed Other: Report Reviewed Assessment/Plan 87 yo female hx of HTN MDS hemochromatosis who presents for evaluation of 2 weeks of chronic headache with generalized weakness. high WBC high ESR brain MRI and abdomen CT negative; will check chest CT /o mass/ PNA r/o infection r/o autoimmune ds CXR and UA negative and pt afebrile; hold antibiotics fo now awaiting cultures; ID eval if fever develops will ask neurology heme and rheumatology in consult high LFTs and coagulopathy high INR - GI f/u r/o liver failue / sepsis; tests and previous consults reviewed and d/w pt and granddaughter, d/w staff falls PFX DVT pfx TEDS SCDS no sq heparin b/o high INR t time 40 min
[2017-11-04] MEDS: ACETAMINOPHEN 325 MG TABLET (FP) PO PRN ×2 (06:48→18:03)
[2017-11-04 07:30] LABS: BASO % 0.4 % (0-2.0); EOS % 2.8 % (0-4.5); HEMATOCRIT 33.5 % (32.4-45.2); HEMOGLOBIN 11.5 GM/dL (10.7-15.3); LYMPH % 11.7 % (8-40); MCH 35.2 pg (25.7-33.7); MCHC 34.5 g/dl (32.0-36.0); MEAN CELL VOLUME 102.1 fl (80-96); MEAN PLT VOLUME 8.9 fl (7.5-11.1); MONO % 9.6 % (3.8-10.2); NEUT % 75.5 % (42.8-82.8); PLATELET COUNT 263 K/MM3 (134-434); RBC 3.28 M/mm3 (3.60-5.2); RDW 12.1 % (11.6-15.6); WHITE BLOOD COUNT 13.7 K/mm3 (4.0-10.0)
[2017-11-04 07:36] LABS: INR 1.91 (0.82-1.09); PROTHROMBIN TIME (PATIENT) 21.6 SEC (9.98-11.88)
[2017-11-04 07:57] LABS: ALBUMIN 2.1 g/dl (3.4-5.0); ANION GAP 10 (8-16); BILIRUBIN,DIRECT 0.2 mg/dL (0.0-0.2); BILIRUBIN,TOTAL 0.5 mg/dL (0.2-1.0); BLOOD UREA NITROGEN 12 mg/dL (7-18); CALCIUM 7.9 mg/dL (8.5-10.1); CHLORIDE 98 mmol/L (98-107); CO2 28 mmol/L (21-32); CREATININE 0.7 mg/dL (0.55-1.02); GLUCOSE,RANDOM 143 mg/dL (74-106); POTASSIUM 3.6 mmol/L (3.5-5.1); SODIUM 136 mmol/L (136-145); TOT PROT 6.1 g/dl (6.4-8.2)
[2017-11-04] MEDS ORDERED: PHYTONADIONE 5 MG TABLET PO SCH (10:00)
[2017-11-04] MEDS: CALCIUM (OYSTER SHELL) 500 MG TABLET (FP) PO SCH (10:03)
[2017-11-04] MEDS: FOLIC ACID 1 MG TABLET (FP) PO SCH (10:03)
[2017-11-04] MEDS: CHOLECALCIFEROL (VITAMIN D3) 1,000 UNIT TABLET (FP) PO SCH (10:03)
[2017-11-04] MEDS: PHYTONADIONE 10 MG/1 ML AMP SQ SCH (10:03)
[2017-11-04] MEDS: LISINOPRIL 10 MG TABLET (FP) PO SCH (10:03)
[2017-11-04] MEDS: SODIUM CHLORIDE 1,000 ML IV SCH (10:05)
--- NOTE | 2017-11-04 18:02 | PN ---
Progress Note (short form) - Note Progress Note: ID Consult dictated UTI/Possible sepsis secondary to UTI Fever/leukocytosis ? Acute flare CTD Pending c/s empiric ceftriaxone
[2017-11-04] MEDS: CEFTRIAXONE 1 GM in DEXTROSE 5%-WATER - 50 ML IVPB SCH (18:12)
[2017-11-04] MEDS ORDERED: DEXTROSE 5%-WATER - 50 ML IVPB ONE (18:12)
[2017-11-04] MEDS ORDERED: cefTRIAXone SODIUM 1 GM VIAL ONE (18:12)
--- NOTE | 2017-11-04 18:47 | CONSULT ---
Consult Consult Specialty:: Rheumatology - History of Present Illness History of Present Illness: 87 year old female, with history of polymyalgia rheumatica and hypertension, admitted with a 2 weeks of chronic headache and generalized weakness blurred vision and double vision. I followed the patient in my office from 05/2009 to 12/2012 for polymyalgia rheumatica. She improved with low dose steroids, which she discontinued. On her last visitr she was asymptomatic and the ESR was 3. Two weeks ago she developed general malaise, weakness, continuous frontal headaches, blurred vision and intermittent episodes of double vision. She lost 5 lb in the last week and today she developed fever (T Max 101.7). A brain MRI was reported with minima chronic vessel ischemia and no intracranial hemorrhage or acute infarction. CT of the chest: Slight elevation of right hemidiaphragm with right lower lobe atelectasis. On admission CBC with Hgb 13.1, HCT 35.6 and platelets 279. ESR 99 and CRP 13.8 (N<0.3). Creatinine 0.7, AST 47, ALT 83, albumin 2.1. UA with blood 1+ and no pretein - History Source History Provided By: Patient, Medical Record Limitations to Obtaining History: No Limitations - Past Medical History Cardio/Vascular: Yes: HTN Rheumatology: Yes: Other (History pf polymyalgia rheumatica.) - Alcohol/Substance Use Hx Alcohol Use: Yes - Smoking History Smoking history: Never smoked Home Medications - Allergies Allergies/Adverse Reactions: Allergies Allergy/AdvReac Type Severity Reaction Status Date / Time No Known Allergies Allergy Verified 11/02/17 16:12 - Home Medications Home Medications: Ambulatory Orders Calcium Carbonate [Calcium] 600 mg PO DAILY 12/09/14 Cholecalciferol (Vitamin D3) [Vitamin D3] 1,000 unit PO DAILY 12/09/14 Folic Acid - 1 mg PO DAILY 12/09/14 Gabapentin [Neurontin -] 400 mg PO PRN 12/09/14 Lisinopril/Hydrochlorothiazide [Lisinopril-Hctz 20-25 mg Tab] 1 each PO DAILY [place]-3 Fatty Acids [Fish Oil] 0 mg PO DAILY 12/09/14 Famotidine [Acid Management Coordinator] 20 mg PO PRN 11/02/17 Review of Systems - Review of Systems Constitutional: reports: Malaise, Unintentional Wgt. Loss Eyes: reports: Blurred Vision, Double Vision HENT: reports: No Symptoms Neck: reports: No Symptoms Cardiovascular: reports: No Symptoms Respiratory: reports: No Symptoms Gastrointestinal: reports: No Symptoms Musculoskeletal: reports: Other (The patient denies joint pain) Physical Exam Vital Signs: Vital Signs Temperature 101.7 F H 11/04/17 18:00 Pulse Rate 87 11/04/17 17:07 Respiratory Rate 18 11/04/17 17:07 Blood Pressure 137/78 11/04/17 17:07 O2 Sat by Pulse Oximetry (%) 95 11/04/17 09:00 Constitutional: Yes: Mild Distress Eyes: Yes: WNL HENT: Yes: WNL Neck: Yes: WNL Cardiovascular: Yes: WNL Respiratory: Yes: WNL Gastrointestinal: Yes: WNL Musculoskeletal: Yes: Other (No active joints) Labs: CBC, BMP 11/04/17 06:00 11/04/17 06:00 Laboratory Tests 11/02/17 11/02/17 11/02/17 16:48 16:48 21:33 ESR Total Bilirubin Direct Bilirubin AST ALT Alkaline Phosphatase Creatine Kinase 47 C-Reactive Protein 13.8 H Urine Color Yellow Urine Appearance Slcloudy Urine pH 5.0 Ur Specific [place] 1.014 Urine Protein Negative Urine Glucose (UA) Negative Urine Ketones Negative Urine Blood 1+ H Urine Nitrite Negative Urine Bilirubin Negative Urine Urobilinogen Negative Ur Leukocyte Esterase Negative 11/02/17 11/04/17 21:33 06:00 ESR 99 H Total Bilirubin 0.5 Direct Bilirubin 0.2 AST 47 H ALT 83 H Alkaline Phosphatase 50 Creatine Kinase C-Reactive Protein Urine Color Urine Appearance Urine pH Ur Specific [place] Urine Protein Urine Glucose (UA) Urine Ketones Urine Blood Urine Nitrite Urine Bilirubin Urine Urobilinogen Ur Leukocyte Esterase Problem List - Problems (1) Temporal arteritis Assessment/Plan: Rule out temporal arteritis. Plan: I started Prednisone 60 mg/d. Consult to Dr. Pollack for temporal artery biopsy. Code(s): M31.6 - OTHER GIANT CELL ARTERITIS
[2017-11-04] MEDS ORDERED: predniSONE 20 MG TABLET (UD) PO SCH (19:00)
--- NOTE | 2017-11-04 21:51 | PN ---
Progress Note (short form) - Note Progress Note: Patien seen and examined Feels slightly better Last Vital Signs Temp Pulse Resp BP Pulse Ox 101.7 F H 87 18 137/78 95 11/04/17 18:00 11/04/17 17:07 11/04/17 17:07 11/04/17 17:07 11/04/17 09:00 Cor: RSR, No murmurs, No gallops Lungs: Clear to P&A Abd: Soft, Normal bowel sounds, No organomegaly Ext:No significant edema Abnormal Lab Results 11/04/17 11/04/17 11/04/17 06:00 06:00 06:00 WBC 13.7 H RBC 3.28 L MCV 102.1 H MCH 35.2 H PT with INR 21.60 H INR 1.91 H PTT (Actin FS) Random Glucose 143 H Calcium 7.9 L AST ALT Total Protein Albumin 11/04/17 11/04/17 06:00 06:00 WBC RBC MCV MCH PT with INR INR PTT (Actin FS) 26.1 L Random Glucose Calcium AST 47 H ALT 83 H Total Protein 6.1 L Albumin 2.1 L Active Medications Generic Name Dose Route Start Last Admin Trade Name Freq PRN Reason Stop Dose Admin Acetaminophen 650 mg 11/03/17 17:20 11/04/17 18:03 Tylenol - PO 650 mg Q6H PRN Administration FEVER Calcium Carbonate 500 mg 11/03/17 10:00 11/04/17 10:03 Os-Issa 500mg - PO 500 mg DAILY MAKAYLA Administration Cholecalciferol 1,000 unit 11/03/17 10:00 11/04/17 10:03 Vitamin D3 - PO 1,000 unit DAILY MAKAYLA Administration Folic Acid 1 mg 11/03/17 10:00 11/04/17 10:03 Folic Acid - PO 1 mg DAILY MAKAYLA Administration Gabapentin 400 mg 11/03/17 15:08 Neurontin - PO HS PRN INSOMNIA Sodium Chloride 1,000 mls @ 42 mls/hr 11/03/17 07:00 11/04/17 10:05 Normal Saline - IV 42 mls/hr ASDIR MAKAYLA Administration Ceftriaxone Sodium 1 gm/ 50 mls @ 100 mls/hr 11/04/17 18:15 11/04/17 18:12 Dextrose IVPB 100 mls/hr DAILY MAKAYLA Administration Protocol Lisinopril 10 mg 11/03/17 13:43 11/04/17 10:03 Prinivil PO 10 mg DAILY MAKAYLA Administration Phytonadione 5 mg 11/04/17 10:00 11/04/17 10:03 Aqua Mephyton Injection - SQ 11/06/17 10:01 5 mg DAILY MAKAYLA Administration Prednisone 60 mg 11/04/17 19:00 11/04/17 19:01 Deltasone - PO 60 mg DAILY MAKAYLA Administration A/P 87 y/o patient with generalized weakness, recent headaches, blurred vision also with tics Noted to have UTI f/u rheumatology consult f/u neuro consult
[2017-11-05] MEDS: SODIUM CHLORIDE 1,000 ML IV SCH ×2 (06:16→10:24)
--- NOTE | 2017-11-05 06:41 | PN ---
Progress Note, Physician Chief Complaint: feels better in bed NAD had fever x 1 started on ATB per ID also seen by rheum, ordered vascular sx eval for TA biopsy r/o TA - Current Medication List Current Medications: Active Medications Acetaminophen (Tylenol -) 650 mg PO Q6H PRN PRN Reason: FEVER Last Admin: 11/04/17 18:03 Dose: 650 mg Calcium Carbonate (Os-Issa 500mg -) 500 mg PO DAILY [facility] Last Admin: 11/04/17 10:03 Dose: 500 mg Cholecalciferol (Vitamin D3 -) 1,000 unit PO DAILY [facility] Last Admin: 11/04/17 10:03 Dose: 1,000 unit Folic Acid (Folic Acid -) 1 mg PO DAILY [facility] Last Admin: 11/04/17 10:03 Dose: 1 mg Gabapentin (Neurontin -) 400 mg PO HS PRN PRN Reason: INSOMNIA Sodium Chloride (Normal Saline -) 1,000 mls @ 42 mls/hr IV ASDIR [facility] Last Admin: 11/05/17 06:16 Dose: Not Given Ceftriaxone Sodium 1 gm/ (Dextrose) 50 mls @ 100 mls/hr IVPB DAILY MAKAYLA PRN Reason: Protocol Last Admin: 11/04/17 18:12 Dose: 100 mls/hr Lisinopril (Prinivil) 10 mg PO DAILY [facility] Last Admin: 11/04/17 10:03 Dose: 10 mg Phytonadione (Aqua Mephyton Injection -) 5 mg SQ DAILY [facility] Stop: 11/06/17 10:01 Last Admin: 11/04/17 10:03 Dose: 5 mg Prednisone (Deltasone -) 60 mg PO DAILY [facility] Last Admin: 11/04/17 19:01 Dose: 60 mg - Objective Vital Signs: Vital Signs Temperature 97.5 F L 11/05/17 05:42 Pulse Rate 73 11/05/17 05:42 Respiratory Rate 18 11/05/17 05:42 Blood Pressure 132/53 11/05/17 05:42 O2 Sat by Pulse Oximetry (%) 95 11/04/17 21:00 Constitutional: Yes: No Distress, Calm Eyes: Yes: Conjunctiva Clear HENT: Yes: Atraumatic Neck: Yes: Supple Cardiovascular: Yes: Regular Rate and Rhythm Respiratory: Yes: CTA Bilaterally Gastrointestinal: Yes: Soft. No: Tenderness Genitourinary: No: CVA Tenderness - Left, CVA Tenderness - Right Musculoskeletal: No: Joint Stiffness, Joint Swelling Extremities: No: Cold, Cool, Cyanosis Edema: No Integumentary: No: Rash, Venous Stasis Changes Neurological: Yes: WNL, Alert, Oriented ...Motor Strength: WNL Psychiatric: Yes: WNL, Alert, Oriented. No: Agitated, Suicidal Ideation Labs: CBC, BMP 11/04/17 06:00 11/04/17 06:00 INR, PTT INR 1.91 (0.82-1.09) H 11/04/17 06:00 Fibrinogen > 646.0 mg/dL (238-498) H 11/03/17 15:48 - ....Imaging Other: Report Reviewed Assessment/Plan 87 yo female hx of HTN MDS hemochromatosis who presents for evaluation of 2 weeks of chronic headache with generalized weakness. high WBC high ESR chest CT no mass/ PNA CECILE and ESR high c/w autoimmune ds most likely temporal arteritis, h/o PMR, will have TA biopsy to confirm it. had some fever; on antibiotics per ID neurology heme and rheumatology f.u HTN on meds; will adjust doses according to BP control. high LFTs and coagulopathy high INR - GI f/u r/o liver failue / sepsis; tests and previous consults reviewed and d/w pt and granddaughter, d/w staff falls PFX DVT pfx TEDS SCDS no sq heparin b/o high INR; to receive FFPs per heme prior to TA biopsy d/w pt and staff
[2017-11-05 07:29] LABS: BASO % 0.2 % (0-2.0); HEMATOCRIT 34.3 % (32.4-45.2); HEMOGLOBIN 11.8 GM/dL (10.7-15.3); MCH 35.5 pg (25.7-33.7); MCHC 34.5 g/dl (32.0-36.0); MEAN CELL VOLUME 102.8 fl (80-96); MEAN PLT VOLUME 8.7 fl (7.5-11.1); MONO % 3.1 % (3.8-10.2); NEUT % 82.7 % (42.8-82.8); PLATELET COUNT 263 K/MM3 (134-434); RBC 3.34 M/mm3 (3.60-5.2); RDW 12.1 % (11.6-15.6); WHITE BLOOD COUNT 8.8 K/mm3 (4.0-10.0)
[2017-11-05 07:49] LABS: ANION GAP 8 (8-16); BILIRUBIN,TOTAL 0.3 mg/dL (0.2-1.0); BLOOD UREA NITROGEN 13 mg/dL (7-18); CALCIUM 8.5 mg/dL (8.5-10.1); CHLORIDE 104 mmol/L (98-107); CO2 28 mmol/L (21-32); GLUCOSE,RANDOM 195 mg/dL (74-106); SGOT/AST 35 U/L (15-37); SGPT/ALT 76 U/L (12-78); SODIUM 140 mmol/L (136-145); TOT PROT 6.3 g/dl (6.4-8.2)
[2017-11-05 07:50] LABS: ALK PHOS 49 U/L (45-117); CREATININE 0.6 mg/dL (0.55-1.02)
[2017-11-05 08:18] LABS: INR 1.73 (0.82-1.09); PROTHROMBIN TIME (PATIENT) 19.6 SEC (9.98-11.88)
--- NOTE | 2017-11-05 08:55 | CONS ---
INFECTIOUS DISEASE CONSULTATION DATE OF CONSULTATION: DATE OF DICTATION: 11/05/2017 The patient is an elderly female evaluated for fever and leukocytosis. She reports that for approximately the past 2 weeks, she had had intermittent headaches, some visual disturbances, anorexia, lethargy and fatigue. She was evaluated as an outpatient and prescribed Zithromax for a presumed sinusitis. She was referred to an ENT. She reports evaluation and workup including CAT scan of the sinuses was unrevealing. She continues to complain of generalized weakness, anorexia, and lethargy. She reports headaches have since resolved. She was admitted to the hospital where an MRI of the brain was performed and was negative for acute pathology. Her course was complicated by fever, elevated white blood cell count, and elevated liver enzymes. CAT scan of the abdomen and pelvis showed a fatty liver. CAT scan of the chest shows right lower lobe atelectasis. Urine culture is now growing lactose youth director. She is awake and alert. At the present time, she has complaint of profound weakness. She denies any chest pain, shortness of breath, cough, sputum production, hemoptysis. No complaints of vomiting or diarrhea. No dysuria or hematuria. PAST MEDICAL HISTORY: Positive for hypertension, polymyalgia rheumatica not presently on steroid therapy. PAST SURGICAL HISTORY: Status post cholecystectomy. ALLERGIES: No known allergies. MEDICATIONS: Include vitamin C, calcium, folic acid, Neurontin, lisinopril, Pepcid. SOCIAL HISTORY: Resides at home. Nonsmoker. Nondrinker. SYSTEMS REVIEW: Neurologic: As per HPI. Cardiac: Negative chest pain or palpitations. Respiratory: Negative cough or sputum production. Gastrointestinal: Negative vomiting or diarrhea. Genitourinary: As per HPI. LABORATORY DATA: White count 13.7, hematocrit 33.5, platelet count 263. Creatinine 0.7. Urinalysis: One white cell. ESR 99. C-reactive protein 13.8. MCV 102. Fibrinogen greater than 646. Blood culture is negative. Urine culture growing lactose youth director. PHYSICAL EXAMINATION: General: On exam, she is supine in bed, awake and responsive; however, weak appearing. Vital signs: T-maximum 101.5, blood pressure 112/76, pulse 82 and regular, respirations 17 per minute. Eyes: Sclerae are anicteric. Throat: Oropharynx negative. Neck: Supple. Head: No palpable cranial vessels. Heart: Heart sounds S1, S2. Lungs: Clear. Abdomen: Obese. Soft. Nontender. No suprapubic or spine tenderness. Extremities: Negative for edema. IMPRESSION: 1. Urinary tract infection. Possible sepsis secondary to urinary tract infection. 2. Fever and leukocytosis. 3. Elevated sedimentation rate, C-reactive protein, in the setting history of polymyalgia rheumatica. Raises the possibility of a flare of her connective tissue disorder. Cannot rule out temporal arteritis, in light of recent headache and visual changes. Await sepsis workup. Empiric ceftriaxone 1 g IV piggyback every 24 hours for treatment of urinary tract isolate. Rheumatology evaluation. Will follow. Thank you for the kind referral. SONG WEBER M.D. [id number]
[2017-11-05] MEDS ORDERED: DEXTROSE 5%-WATER - 50 ML IVPB ONE (09:23)
[2017-11-05] MEDS ORDERED: cefTRIAXone SODIUM 1 GM VIAL ONE (09:23)
[2017-11-05] MEDS: CEFTRIAXONE 1 GM in DEXTROSE 5%-WATER - 50 ML IVPB SCH (09:27)
[2017-11-05] MEDS: CALCIUM (OYSTER SHELL) 500 MG TABLET (FP) PO SCH (09:28)
[2017-11-05] MEDS: FOLIC ACID 1 MG TABLET (FP) PO SCH (09:28)
[2017-11-05] MEDS: LISINOPRIL 10 MG TABLET (FP) PO SCH (09:28)
[2017-11-05] MEDS: CHOLECALCIFEROL (VITAMIN D3) 1,000 UNIT TABLET (FP) PO SCH (09:28)
--- NOTE | 2017-11-05 10:00 | CON.NEURO ---
Consult Consult Specialty:: Vikas Referred by:: Bereket Reason for Consultation:: GILMORE - History of Present Illness History of Present Illness: CC two weeks of headache HPI 87 woman well known to my practice with PMH CAD HTN PMR OA Ch LBP Came in with GILMORE Blurry vision and gen Fatigue Patient was diagnosed with PMR by Rheumatology in 2008 She was on Steroids Rheum requested [facility] vascular surgery Patient was seen on the floor and is headache free Headache Character: 1. Dull ache 2. bifrontal 3. no nausea 4. No vomiting 5. No relief on [id number] analgesics Patient with no history of migraine in the past Patient used to see interventional pain physician for lower back pain and difficulty with her right leg - History Source History Provided By: Patient, Medical Record Limitations to Obtaining History: No Limitations - Past Medical History Cardio/Vascular: Yes: HTN Rheumatology: Yes: Other (History pf polymyalgia rheumatica.) - Alcohol/Substance Use Hx Alcohol Use: Yes - Smoking History Smoking history: Never smoked Home Medications - Allergies Allergies/Adverse Reactions: Allergies Allergy/AdvReac Type Severity Reaction Status Date / Time No Known Allergies Allergy Verified 11/02/17 16:12 - Home Medications Home Medications: Ambulatory Orders Calcium Carbonate [Calcium] 600 mg PO DAILY 12/09/14 Cholecalciferol (Vitamin D3) [Vitamin D3] 1,000 unit PO DAILY 12/09/14 Folic Acid - 1 mg PO DAILY 12/09/14 Gabapentin [Neurontin -] 400 mg PO PRN 12/09/14 Lisinopril/Hydrochlorothiazide [Lisinopril-Hctz 20-25 mg Tab] 1 each PO DAILY [place]-3 Fatty Acids [Fish Oil] 0 mg PO DAILY 12/09/14 Famotidine [Acid Condenser Operator] 20 mg PO PRN 11/02/17 Review of Systems - Review of Systems Constitutional: reports: Lethargy, Weakness Physical Exam-Neuro Vital Signs: Vital Signs Temperature 97.5 F L 11/05/17 05:42 Pulse Rate 73 11/05/17 05:42 Respiratory Rate 18 11/05/17 05:42 Blood Pressure 132/53 11/05/17 05:42 O2 Sat by Pulse Oximetry (%) 95 11/04/17 21:00 Constitutional: Yes: Well Nourished Neck: Yes: WNL Cardiovascular: Yes: WNL Labs: CBC, BMP 11/05/17 06:40 11/05/17 06:40 INR, PTT INR 1.73 (0.82-1.09) H 11/05/17 06:50 Fibrinogen > 646.0 mg/dL (238-498) H 11/03/17 15:48 - Neuro Exam Level Of Consciousness: Yes: Oriented to Person, Oriented to Place, Oriented to Time Eyes: Yes: PERRLA Speech: WNL Dominant Hand: Right Mini Mental Exam: 28 Cranial Nerves II-XII Intact: Yes Gag: Present DTR's: 1+ Left Bicep, 1+ Right Bicep, 1+ Left Tricep, 1+ Right Tricep, 1+ Left Achilles, 1+ Right Achilles Babinski: Absent Response to light touch: Abnormal Response to pain prick: Normal Response to temperature: Normal Response to vibration: Normal Movement Disorders: Tremors Motor Strength: 3/5: Left Arm, Right Arm, Left Leg, Right Leg Gait: Deferred Imaging - Results MRI: Report Reviewed, Image Reviewed Problem List - Problems (1) Tremors of nervous system Assessment/Plan: 1. we will keep monitoring the patient's tremor for now 2. DVT prophylaxis Code(s): R25.1 - TREMOR, UNSPECIFIED (2) Temporal arteritis Assessment/Plan: 1. Agree to your plan 2 .ESR follow up 3 .Quick steroids taper thank you very much for this kind neurological referral to follow the patient with other specialists Code(s): M31.6 - OTHER GIANT CELL ARTERITIS
[2017-11-05] MEDS: PHYTONADIONE 10 MG/1 ML AMP SQ SCH (10:24)
[2017-11-05] MEDS: predniSONE 20 MG TABLET (UD) PO SCH ×2 (10:24→21:49)
--- NOTE | 2017-11-05 10:46 | CONSULT ---
Consultation: REQUESTING PROVIDER: Dr. Mayfield CONSULT REQUEST: We have been asked to medically evaluate this patient for temporal arteritis. HISTORY OF PRESENT ILLNESS: 87 y/o F with PMH polymyalgia rheumatica, HTN, who presents to the ED c/o two week history of chronic headache, generalized weakness and blurred, double vision for two days. As per patient, two weeks ago, she developed a constant, frontal headache that was a 10/10. Pt thought she had a sinus infection, so she saw Dr. Cuba and was started on abx. Pt was also seen by ENT. When pt did not improve with abx, she was referred to the [facility] ED for further evaluation. She states that upon arrival to the ED she developed blurred, double vision which she had for two days, that has since improved. Today, pt denies GILMORE, fever , chills, visual changes, SOB, chest pain, or changes in urinary or bowel function. On admission, pt with ESR 99, leukocytosis 13.1. She was seen by Rheumatology and started on Prednisone 60mg qd. Vascular team consulted for temporal a. biopsy. REVIEW OF SYSTEMS: CONSTITUTIONAL: Absent: fever, chills, diaphoresis, generalized weakness, malaise, loss of appetite, weight change HEENT: Absent: rhinorrhea, nasal congestion, throat pain, throat swelling, difficulty swallowing, mouth swelling, ear pain, eye pain, visual changes CARDIOVASCULAR: Absent: chest pain, syncope, palpitations, irregular heart rate, lightheadedness , peripheral edema RESPIRATORY: Absent: cough, shortness of breath, dyspnea with exertion, orthopnea, wheezing, stridor, hemoptysis GASTROINTESTINAL: Absent: abdominal pain, abdominal distension, nausea, vomiting, diarrhea, constipation, melena, hematochezia GENITOURINARY: Absent: dysuria, frequency, urgency, hesitancy, hematuria, flank pain, genital pain MUSCULOSKELETAL: Absent: myalgia, arthralgia, joint swelling, back pain, neck pain SKIN: Absent: rash, itching, pallor HEMATOLOGIC/IMMUNOLOGIC: Absent: easy bleeding, easy bruising, lymphadenopathy, frequent infections ENDOCRINE: Absent: unexplained weight gain, unexplained weight loss, heat intolerance, cold intolerance NEUROLOGIC: +headache, visual changes Absent: headache, focal weakness or paresthesias, dizziness, unsteady gait, seizure, mental status changes, bladder or bowel incontinence PSYCHIATRIC: Absent: anxiety, depression, suicidal or homicidal ideation, hallucinations. PHYSICAL EXAMINATION Vital Signs 11/05/17 05:42 Temperature 97.5 F L Pulse Rate 73 Respiratory 18 Rate Blood Pressure 132/53 O2 Sat by Pulse Oximetry (%) GENERAL: Sitting comfortably in bed. Awake, alert, and fully oriented, in no acute distress. HEAD: Normal with no signs of trauma. Without TTP EYES: Pupils equal, round and reactive to light, extraocular movements intact, sclera anicteric, conjunctiva clear. EARS, NOSE, THROAT: Ears normal, nares patent, oropharynx clear without exudates. Moist mucous membranes. NECK: Normal range of motion, supple without lymphadenopathy LUNGS: Breath sounds equal, clear to auscultation bilaterally. No wheezes, and no crackles. No accessory muscle use. HEART: Regular rate and rhythm, normal S1 and S2 without murmur, rub or gallop. ABDOMEN: Soft, obese, nontender, not distended, normoactive bowel sounds, no guarding, no rebound, no masses. MUSCULOSKELETAL: Normal range of motion at all joints. No bony deformities or tenderness. No CVA tenderness. LOWER EXTREMITIES: 2+ posterior tibial pulses, warm, well-perfused. No peripheral edema. Mild, diffuse TTP LLE 2/2 past injury NEUROLOGICAL: Cranial nerves II-XII intact. Normal speech. PSYCHIATRIC: Cooperative SKIN: Warm, dry, normal turgor Laboratory Results 11/05/17 11/05/17 11/05/17 06:40 06:40 06:40 WBC 8.8 D RBC 3.34 L Hgb 11.8 Hct 34.3 MCV 102.8 H MCH 35.5 H MCHC 34.5 RDW 12.1 Plt Count 263 MPV 8.7 Neutrophils % 82.7 Lymphocytes % 14.0 Monocytes % 3.1 L Eosinophils % 0.0 D Basophils % 0.2 PT with INR INR PTT (Actin FS) 26.3 L Sodium 140 Potassium 4.0 Chloride 104 Carbon Dioxide 28 Anion Gap 8 BUN 13 Creatinine 0.6 Creat Clearance w eGFR > 60 Random Glucose 195 H Calcium 8.5 Total Bilirubin 0.3 D AST 35 ALT 76 Alkaline Phosphatase 49 C-Reactive Protein Total Protein 6.3 L Albumin 2.0 L Rheumatoid Factor < 10.0 11/02/17 11/05/17 21:33 06:40 ESR 99 H Active Medications Generic Name Dose Route Start Last Admin Trade Name Freq PRN Reason Stop Dose Admin Acetaminophen 650 mg 11/03/17 17:20 11/04/17 18:03 Tylenol - PO 650 mg Q6H PRN Administration FEVER Calcium Carbonate 500 mg 11/03/17 10:00 11/05/17 09:28 Os-Issa 500mg - PO 500 mg DAILY MAKAYLA Administration Cholecalciferol 1,000 unit 11/03/17 10:00 11/05/17 09:28 Vitamin D3 - PO 1,000 unit DAILY MAKAYLA Administration Folic Acid 1 mg 11/03/17 10:00 11/05/17 09:28 Folic Acid - PO 1 mg DAILY MAKAYLA Administration Gabapentin 400 mg 11/03/17 15:08 Neurontin - PO HS PRN INSOMNIA Sodium Chloride 1,000 mls @ 42 mls/hr 11/03/17 07:00 11/05/17 06:16 Normal Saline - IV Not Given ASDIR MAKAYLA Ceftriaxone Sodium 1 gm/ 50 mls @ 100 mls/hr 11/04/17 18:15 11/05/17 09:27 Dextrose IVPB 100 mls/hr DAILY MAKAYLA Administration Protocol Lisinopril 10 mg 11/03/17 13:43 11/05/17 09:28 Prinivil PO 10 mg DAILY MAKAYLA Administration Phytonadione 5 mg 11/04/17 10:00 11/05/17 10:24 Aqua Mephyton Injection - SQ 11/06/17 10:01 5 mg DAILY MAKAYLA Administration Prednisone 40 mg 11/05/17 10:00 11/05/17 10:24 Deltasone - PO 40 mg BID MAKAYLA Administration Microbiology 11/02/17 16:48 Urine - Urine Clean Catch Urine Culture - Preliminary Lactose Fermenting Neg Bacilli IMAGING Chest CT: slight elevation of R hemidiaphragm with minimal R lower lobe atelectasis Brain MRI: chronic microvascular ischemic changes, however no evidence of intracranial hemorrhage, infarct or masses. b/l sinus mucosal thickening, mastoid air cells opacification ASSESSMENT/PLAN: 87 y/o F with PMH polymyalgia rheumatica, HTN, who presents to the ED c/o two week history of chronic headache, generalized weakness and blurred, double vision for two days. Vasc team consulted to r/o temporal arteritis. #R/o Temporal arteritis -Pt with c/o chronic headache x 2 wks, double visionx 2 days, has since resolved. -at time, pt endorsed increased visual changes in R eye -ESR 99, CRP 15.9 -started on Prednisone 60mg PO qd, continue -will undergo R sided temporal a. biopsy tomorrow afternoon, discussed with patient -NPO after midnight, except for meds with water Thank you Mary Kessler MD PGY-1 Vasc team Dispo: We will continue to follow the patient. Thank you for this consultative opportunity. Visit type - Emergency Visit Emergency Visit: No - New Patient This patient is new to me today: Yes Date on this admission: 11/05/17 - Critical Care Critical Care patient: No
[2017-11-05] MEDS ORDERED: PANTOPRAZOLE 40 MG TABLET (FP) PO ONE (12:00)
--- NOTE | 2017-11-05 13:26 | PN ---
Progress Note, Physician History of Present Illness: OOB in chair No complaints Febrile overnight Tmax 101.7 No chills No c/o headache No dysuria/ hematuria WBC WNL Urine c/s Enterobacter sp. - Current Medication List Current Medications: Active Medications Acetaminophen (Tylenol -) 650 mg PO Q6H PRN PRN Reason: FEVER Last Admin: 11/04/17 18:03 Dose: 650 mg Calcium Carbonate (Os-Issa 500mg -) 500 mg PO DAILY [facility] Last Admin: 11/05/17 09:28 Dose: 500 mg Cholecalciferol (Vitamin D3 -) 1,000 unit PO DAILY [facility] Last Admin: 11/05/17 09:28 Dose: 1,000 unit Folic Acid (Folic Acid -) 1 mg PO DAILY [facility] Last Admin: 11/05/17 09:28 Dose: 1 mg Gabapentin (Neurontin -) 400 mg PO HS PRN PRN Reason: INSOMNIA Sodium Chloride (Normal Saline -) 1,000 mls @ 42 mls/hr IV ASDIR [facility] Last Admin: 11/05/17 06:16 Dose: Not Given Ceftriaxone Sodium 1 gm/ (Dextrose) 50 mls @ 100 mls/hr IVPB DAILY [facility] PRN Reason: Protocol Last Admin: 11/05/17 09:27 Dose: 100 mls/hr Lisinopril (Prinivil) 10 mg PO DAILY [facility] Last Admin: 11/05/17 09:28 Dose: 10 mg Pantoprazole Sodium (Protonix -) 40 mg PO DAILY [facility] Phytonadione (Aqua Mephyton Injection -) 5 mg SQ DAILY [facility] Stop: 11/06/17 10:01 Last Admin: 11/05/17 10:24 Dose: 5 mg Prednisone (Deltasone -) 40 mg PO BID [facility] Last Admin: 11/05/17 10:24 Dose: 40 mg - Objective Vital Signs: Vital Signs Temperature 97.5 F L 11/05/17 05:42 Pulse Rate 73 11/05/17 05:42 Respiratory Rate 18 11/05/17 05:42 Blood Pressure 132/53 11/05/17 05:42 O2 Sat by Pulse Oximetry (%) 95 11/04/17 21:00 Constitutional: Yes: No Distress Eyes: Yes: Conjunctiva Clear Neck: Yes: Supple Cardiovascular: Yes: Regular Rate and Rhythm, S1, S2 Respiratory: Yes: CTA Bilaterally Gastrointestinal: Yes: Normal Bowel Sounds, Soft. No: Tenderness Edema: Yes Labs: CBC, BMP 11/05/17 06:40 11/05/17 06:40 INR, PTT INR 1.73 (0.82-1.09) H 11/05/17 06:50 Fibrinogen > 646.0 mg/dL (238-498) H 11/03/17 15:48 Assessment/Plan UTI Enterobacter Fever, headache, visual changes, elevated ESR/CRP R/O temporal arteritis Substitute levaquin For temporal artery bx
--- NOTE | 2017-11-05 17:01 | PN ---
Progress Note (short form) - Note Progress Note: Patien seen and examined Feels slightly better Last Vital Signs Temp Pulse Resp BP Pulse Ox 97.5 F L 79 18 150/74 95 11/05/17 14:41 11/05/17 14:41 11/05/17 14:41 11/05/17 14:41 11/05/17 09:00 Cor: RSR, No murmurs, No gallops Lungs: Clear to P&A Abd: Soft, Normal bowel sounds, No organomegaly Ext:No significant edema Abnormal Lab Results 11/05/17 11/05/17 11/05/17 06:40 06:40 06:40 RBC 3.34 L MCV 102.8 H MCH 35.5 H Monocytes % 3.1 L PT with INR INR PTT (Actin FS) 26.3 L Random Glucose 195 H C-Reactive Protein 15.9 H Total Protein 6.3 L Albumin 2.0 L 11/05/17 06:50 RBC MCV MCH Monocytes % PT with INR 19.60 H INR 1.73 H PTT (Actin FS) Random Glucose C-Reactive Protein Total Protein Albumin Active Medications Generic Name Dose Route Start Last Admin Trade Name Freq PRN Reason Stop Dose Admin Acetaminophen 650 mg 11/03/17 17:20 11/04/17 18:03 Tylenol - PO 650 mg Q6H PRN Administration FEVER Calcium Carbonate 500 mg 11/03/17 10:00 11/05/17 09:28 Os-Issa 500mg - PO 500 mg DAILY MAKAYLA Administration Cholecalciferol 1,000 unit 11/03/17 10:00 11/05/17 09:28 Vitamin D3 - PO 1,000 unit DAILY MAKAYLA Administration Folic Acid 1 mg 11/03/17 10:00 11/05/17 09:28 Folic Acid - PO 1 mg DAILY MAKAYLA Administration Gabapentin 400 mg 11/03/17 15:08 Neurontin - PO HS PRN INSOMNIA Sodium Chloride 1,000 mls @ 42 mls/hr 11/03/17 07:00 11/05/17 10:24 Normal Saline - IV 42 mls/hr ASDIR MAKAYLA Administration Levofloxacin 250 mg in 50 mls @ 50 mls/hr 11/05/17 14:00 11/05/17 14:10 Levaquin 250 Mg Premixed Ivpb - IVPB 50 mls/hr DAILY MAKAYLA Administration Protocol Lisinopril 10 mg 11/03/17 13:43 11/05/17 09:28 Prinivil PO 10 mg DAILY MAKAYLA Administration Pantoprazole Sodium 40 mg 11/06/17 10:00 Protonix - PO DAILY MAKAYLA Phytonadione 5 mg 11/04/17 10:00 11/05/17 10:24 Aqua Mephyton Injection - SQ 11/06/17 10:01 5 mg DAILY MAKAYLA Administration Prednisone 40 mg 11/05/17 10:00 11/05/17 10:24 Deltasone - PO 40 mg BID MAKAYLA Administration A/P 87 y/o patient with generalized weakness, recent headaches, blurred vision also with tics Noted to have UTI satrted predniosone for temporal artery biopsy tomorrow on vitamin K MAy need FFP prior to biopsy if INR > 1.4 discussed with son
[2017-11-05] MEDS ORDERED: INSULIN (NOVOLOG) ASPART 100 UNITS/ML 10ML VIAL SQ ONE (18:30)
[2017-11-05] MEDS: INSULIN SLIDING SCALE (NOVOLOG) 1 VIAL SQ SCH (21:50)
[2017-11-06 00:10] LABS: HEP.C VIRUS AB <0.1 s/co ratio (0.0-0.9)
[2017-11-06] MEDS: SODIUM CHLORIDE 1,000 ML IV SCH ×2 (06:01→17:33)
[2017-11-06] MEDS: INSULIN SLIDING SCALE (NOVOLOG) 1 VIAL SQ SCH ×4 (06:01→21:38)
[2017-11-06] MEDS ORDERED: INSULIN (NOVOLOG) ASPART 100 UNITS/ML 10ML VIAL ONE ×3 (06:18→21:35)
--- NOTE | 2017-11-06 06:21 | PN ---
Progress Note, Physician Chief Complaint: in bed NAD afebrile no new c/o no headaches - Current Medication List Current Medications: Active Medications Acetaminophen (Tylenol -) 650 mg PO Q6H PRN PRN Reason: FEVER Last Admin: 11/04/17 18:03 Dose: 650 mg Calcium Carbonate (Os-Issa 500mg -) 500 mg PO DAILY [facility] Last Admin: 11/05/17 09:28 Dose: 500 mg Cholecalciferol (Vitamin D3 -) 1,000 unit PO DAILY [facility] Last Admin: 11/05/17 09:28 Dose: 1,000 unit Folic Acid (Folic Acid -) 1 mg PO DAILY [facility] Last Admin: 11/05/17 09:28 Dose: 1 mg Gabapentin (Neurontin -) 400 mg PO HS PRN PRN Reason: INSOMNIA Sodium Chloride (Normal Saline -) 1,000 mls @ 42 mls/hr IV ASDIR [facility] Last Admin: 11/06/17 06:01 Dose: Not Given Levofloxacin (Levaquin 250 Mg Premixed Ivpb -) 250 mg in 50 mls @ 50 mls/hr IVPB DAILY MAKAYLA PRN Reason: Protocol Last Admin: 11/05/17 14:10 Dose: 50 mls/hr Insulin Aspart (Novolog Vial Sliding Scale -) 1 vial SQ ACHS MAKAYLA PRN Reason: Protocol Last Admin: 11/06/17 06:01 Dose: Not Given Lisinopril (Prinivil) 10 mg PO DAILY [facility] Last Admin: 11/05/17 09:28 Dose: 10 mg Pantoprazole Sodium (Protonix -) 40 mg PO DAILY [facility] Phytonadione (Aqua Mephyton Injection -) 5 mg SQ DAILY [facility] Stop: 11/06/17 10:01 Last Admin: 11/05/17 10:24 Dose: 5 mg Prednisone (Deltasone -) 40 mg PO BID [facility] Last Admin: 11/05/17 21:49 Dose: 40 mg - Objective Vital Signs: Vital Signs Temperature 97.8 F 11/06/17 02:45 Pulse Rate 59 L 11/06/17 02:45 Respiratory Rate 20 11/06/17 02:45 Blood Pressure 115/53 11/06/17 02:45 O2 Sat by Pulse Oximetry (%) 96 11/05/17 20:45 Constitutional: Yes: No Distress, Calm Eyes: Yes: Conjunctiva Clear HENT: Yes: Atraumatic Neck: Yes: Supple Cardiovascular: Yes: Regular Rate and Rhythm Respiratory: Yes: CTA Bilaterally Gastrointestinal: Yes: Soft. No: Distention Genitourinary: No: CVA Tenderness - Left, CVA Tenderness - Right Musculoskeletal: No: Joint Stiffness, Joint Swelling Extremities: No: Cold, Cool, Cyanosis Edema: No Integumentary: No: Rash, Venous Stasis Changes Neurological: Yes: WNL, Alert, Oriented ...Motor Strength: WNL Psychiatric: Yes: WNL, Alert, Oriented. No: Agitated, Suicidal Ideation Labs: CBC, BMP 11/05/17 06:40 11/05/17 06:40 INR, PTT INR 1.73 (0.82-1.09) H 11/05/17 06:50 Fibrinogen > 646.0 mg/dL (238-498) H 11/03/17 15:48 - ....Imaging Other: Report Reviewed Assessment/Plan 87 yo female hx of HTN MDS hemochromatosis who presents for evaluation of 2 weeks of chronic headache with generalized weakness. high WBC high ESR, +CECILE c/w autoimmune ds most likely temporal arteritis, h/o PMR, will have TA biopsy today to confirm it. UTI, fever; on antibiotics per ID neurology heme and rheumatology f.u HTN on meds; will adjust doses according to BP control. high LFTs and coagulopathy high INR - GI f/u r/o liver failue / sepsis; tests and previous consults reviewed and d/w pt and granddaughter, d/w staff falls PFX DVT pfx TEDS SCDS no sq heparin b/o high INR; to receive FFPs per heme prior to TA biopsy d/w pt and staff
[2017-11-06 07:31] LABS: BASO % 0.2 % (0-2.0); EOS % 0.1 % (0-4.5); HEMATOCRIT 30.7 % (32.4-45.2); HEMOGLOBIN 10.7 GM/dL (10.7-15.3); LYMPH % 12.7 % (8-40); MEAN CELL VOLUME 102.8 fl (80-96); MEAN PLT VOLUME 9.1 fl (7.5-11.1); MONO % 3.1 % (3.8-10.2); NEUT % 83.9 % (42.8-82.8); PLATELET COUNT 258 K/MM3 (134-434); RBC 2.98 M/mm3 (3.60-5.2); RDW 12.2 % (11.6-15.6); WHITE BLOOD COUNT 9.1 K/mm3 (4.0-10.0)
[2017-11-06 07:44] LABS: INR 1.58 (0.82-1.09); PROTHROMBIN TIME (PATIENT) 17.9 SEC (9.7-13.0)
[2017-11-06 07:49] LABS: ANION GAP 9 (8-16); BLOOD UREA NITROGEN 17 mg/dL (7-18); CALCIUM 8.7 mg/dL (8.5-10.1); CHLORIDE 105 mmol/L (98-107); CO2 27 mmol/L (21-32); GLUCOSE,RANDOM 191 mg/dL (74-106); POTASSIUM 4.6 mmol/L (3.5-5.1); SODIUM 141 mmol/L (136-145)
[2017-11-06 07:52] LABS: ALK PHOS 51 U/L (45-117); BILIRUBIN,TOTAL 0.2 mg/dL (0.2-1.0); CREATININE 0.7 mg/dL (0.55-1.02); SGOT/AST 47 U/L (15-37); SGPT/ALT 91 U/L (12-78)
--- NOTE | 2017-11-06 08:09 | PN ---
Progress Note (short form) - Note Progress Note: The patient is feeling better since she was started on steroids. Fever resolved and she denies double vision. No SOB. P/E Lungs clear. No active joints. Temporal arteries normal in pulsation. On Prednisone 40 mg BID. Labs> CECILE, rheumatoid factor and anti-DNAds negative. ESR today pending. Patient is schedules for temporal artery biopsy today in the afternoon. Continue same medications. Problem List - Problems (1) Temporal arteritis Code(s): M31.6 - OTHER GIANT CELL ARTERITIS
[2017-11-06] MEDS: CALCIUM (OYSTER SHELL) 500 MG TABLET (FP) PO SCH (09:14)
[2017-11-06] MEDS: LISINOPRIL 10 MG TABLET (FP) PO SCH (09:14)
[2017-11-06] MEDS: predniSONE 20 MG TABLET (UD) PO SCH ×2 (09:14→21:34)
[2017-11-06] MEDS: FOLIC ACID 1 MG TABLET (FP) PO SCH (09:14)
[2017-11-06] MEDS: CHOLECALCIFEROL (VITAMIN D3) 1,000 UNIT TABLET (FP) PO SCH (09:15)
[2017-11-06] MEDS: PHYTONADIONE 10 MG/1 ML AMP SQ SCH (09:15)
[2017-11-06] MEDS ORDERED: PANTOPRAZOLE 40 MG TABLET (FP) PO SCH (10:00)
[2017-11-06] MEDS ORDERED: amLODIPine BESYLATE 5 MG TABLET (FP) PO ONE (13:15)
[2017-11-06] MEDS ORDERED: LIDOCAINE HCL/PF 2% SDV 5ML VIAL ONE (13:46)
[2017-11-06] MEDS ORDERED: PROPOFOL 20 ML ONE (13:46)
[2017-11-06] MEDS ORDERED: LIDOCAINE HCL 1%, 10 MG/ML (20ML VIAL) INF ONE ×2 (14:40)
--- NOTE | 2017-11-06 15:34 | OP ---
Operative Note - Note: Operative Date: 11/06/17 Pre-Operative Diagnosis: rule out temporal arteritis Operation: right temporal artery biopsy Post-Operative Diagnosis: Same as Pre-op Surgeon: Eugene Pollack Anesthesia: Fractional Estimated Blood Loss (mls): 10 Operative Report Dictated: Yes
[2017-11-06] MEDS ORDERED: ACETAMINOPHEN 325 MG TABLET (FP) PO PRN (15:38)
[2017-11-06] MEDS ORDERED: ONDANSETRON 4 MG/2 ML VIAL IVPUSH PRN (15:40)
--- NOTE | 2017-11-06 16:54 | PN ---
Progress Note (short form) - Note Progress Note: Patien seen and examined Feels slightly better Last Vital Signs Temp Pulse Resp BP Pulse Ox 98.2 F 66 18 152/74 96 11/06/17 16:15 11/06/17 16:15 11/06/17 16:15 11/06/17 16:15 11/06/17 16:00 Cor: RSR, No murmurs, No gallops Lungs: Clear to P&A Abd: Soft, Normal bowel sounds, No organomegaly Ext:No significant edema Abnormal Lab Results 11/04/17 11/04/17 11/06/17 06:00 06:00 06:00 RBC 2.98 L Hct 32.6 L 30.7 L MCV 102.8 H MCH 36.0 H Neutrophils % 83.9 H Monocytes % 3.1 L ESR PT with INR INR PTT (Actin FS) Random Glucose AST ALT Total Protein Albumin Beta Globulins 1.4 H Total Protein (BLANCO) 5.8 L Albumin (BLANCO) 2.2 L Jhbmm-1-Xlzivrmhg BLANCO 0.5 H IEP IgG 536 L IEP IgA 1032 H 11/06/17 11/06/17 11/06/17 06:00 06:00 06:00 RBC Hct MCV MCH Neutrophils % Monocytes % ESR 106 H PT with INR 17.90 H INR 1.58 H PTT (Actin FS) Random Glucose 191 H AST 47 H ALT 91 H Total Protein 6.0 L Albumin 2.0 L Beta Globulins Total Protein (BLANCO) Albumin (BLANCO) Spsad-5-Ubrdzjwvi BLANCO IEP IgG IEP IgA 11/06/17 06:00 RBC Hct MCV MCH Neutrophils % Monocytes % ESR PT with INR INR PTT (Actin FS) 25.8 L Random Glucose AST ALT Total Protein Albumin Beta Globulins Total Protein (BLANCO) Albumin (BLANCO) Ecbaz-1-Melvrjfds BLANCO IEP IgG IEP IgA Active Medications Generic Name Dose Route Start Last Admin Trade Name Freq PRN Reason Stop Dose Admin Acetaminophen 650 mg 11/06/17 15:38 Tylenol - PO Q6H PRN FEVER Calcium Carbonate 500 mg 11/07/17 10:00 Os-Issa 500mg - PO DAILY MAKAYLA Cholecalciferol 1,000 unit 11/07/17 10:00 Vitamin D3 - PO DAILY [facility] Folic Acid 1 mg 11/07/17 10:00 Folic Acid - PO DAILY [facility] Gabapentin 400 mg 11/06/17 15:38 Neurontin - PO HS PRN INSOMNIA Levofloxacin 250 mg in 50 mls @ 50 mls/hr 11/07/17 10:00 Levaquin 250 Mg Premixed Ivpb - IVPB DAILY [facility] Protocol Sodium Chloride 1,000 mls @ 42 mls/hr 11/06/17 15:38 Normal Saline - IV ASDIR [facility] Insulin Aspart 1 vial 11/06/17 16:30 Novolog Vial Sliding Scale - SQ ACHS [facility] Protocol Lisinopril 10 mg 11/07/17 10:00 Prinivil PO DAILY [facility] Pantoprazole Sodium 40 mg 11/07/17 10:00 Protonix - PO DAILY [facility] Prednisone 40 mg 11/06/17 22:00 Deltasone - PO BID [facility] A/P 87 y/o patient with generalized weakness, recent headaches, blurred vision also with tics Noted to have UTI satrted predniosone for presumed temporal arteritis for temporal artery biiopsy today s/p FFP/vit. K discussed with
--- NOTE | 2017-11-06 17:09 | PN ---
GI Progress Note Subjective: Gi NOte: LFTs remain mildly elevated. Edwina's headache and visual disturbances has virtually vanished since she was started on steroids for suspected TA. Biopsy is still pending. Screening for viral hepatitis and autoimmune hepatitis is negative. Further questioning reveals that Edwina was followed by Dr. Everett in the past for iron overload that I believe was hemachromatosis as she managed with phlebotomies and her son tells me that he and his children were advised to have a genetic screening which was unremarkable. Edwina tells me that her father of cirrhosis that was not related to alcohol. - Objective Vital Signs: Vital Signs Temperature 98.2 F 11/06/17 16:15 Pulse Rate 66 11/06/17 16:15 Respiratory Rate 18 11/06/17 16:15 Blood Pressure 152/74 11/06/17 16:15 O2 Sat by Pulse Oximetry (%) 96 11/06/17 16:00 Laboratory Tests 11/02/17 11/02/17 11/03/17 16:48 20:22 07:35 WBC 12.2 H ESR Total Bilirubin AST 61 H ALT 96 H Alkaline Phosphatase 56 CECILE Screen Lyme Screen IgG & IgM <0.91 Hepatitis A IgM Ab Hep Bs Antigen Hep B Core IgM Ab Hepatitis C Antibody 11/03/17 11/04/17 11/05/17 15:48 06:00 06:40 WBC ESR Total Bilirubin AST 35 ALT 76 Alkaline Phosphatase 49 CECILE Screen Negative Lyme Screen IgG & IgM Hepatitis A IgM Ab Negative Hep Bs Antigen Negative Hep B Core IgM Ab Negative Hepatitis C Antibody <0.1 11/05/17 11/06/17 11/06/17 06:40 06:00 06:00 WBC 8.8 D 9.1 ESR Total Bilirubin 0.2 D AST 47 H ALT 91 H Alkaline Phosphatase 51 CECILE Screen Lyme Screen IgG & IgM Hepatitis A IgM Ab Hep Bs Antigen Hep B Core IgM Ab Hepatitis C Antibody 11/06/17 06:00 WBC ESR 106 H Total Bilirubin AST ALT Alkaline Phosphatase CECILE Screen Lyme Screen IgG & IgM Hepatitis A IgM Ab Hep Bs Antigen Hep B Core IgM Ab Hepatitis C Antibody Constitutional: No Distress ...Auscultate: Yes: Normoactive Bowel Sounds ...Palpate: Yes: Soft, Other (nontender) Labs: CBC, BMP 11/06/17 06:00 11/06/17 06:00 INR, PTT INR 1.58 (0.82-1.09) H 11/06/17 06:00 Fibrinogen > 646.0 mg/dL (238-498) H 11/03/17 15:48 Problem List - Problems (1) Liver function test abnormality Assessment/Plan: It now appears that Edwina's abnormalities reflect her hemochromatosis. Code(s): R94.5 - ABNORMAL RESULTS OF LIVER FUNCTION STUDIES (2) Hemochromatosis Assessment/Plan: Will order iron studies to confirm this diagnosis and an AFP tumor marker. Her CT suggests chronic liver disease with a fatty component but no obvious liver tumors. I did advise her to have liver sonograms and AFPs twice a year. Code(s): E83.119 - HEMOCHROMATOSIS, UNSPECIFIED
[2017-11-06 17:13] LABS: INR 1.43 (0.82-1.09); PROTHROMBIN TIME (PATIENT) 16.2 SEC (9.7-13.0)
[2017-11-06] MEDS ORDERED: GABAPENTIN 400 MG CAPSULE (FP) PO PRN (17:21)
--- NOTE | 2017-11-06 18:59 | CON.CARD ---
Consult Consult Specialty:: Cardiology Referred by:: Dr. Cuab Reason for Consultation:: Cardiac evaluation - History of Present Illness Chief Complaint: Headache, double vision History of Present Illness: Patient is an 87 year old female with underlying history of polymyalgia rheumatica and hypertension who presented with headache, generalized weakness and blurred and double vision. Initially she was given antibiotics by PMD and also had seen ENT at which time she did not complain of vision problem. She was though to have a sinus infection. She started to have double vision at which time she was brought in to ED. ESR and CRP was elevated. She was started on Prednisone with thoughts of temporal arteritis. She was also seen by Rheumatology. She denies chest pain, shortness of breath or palpitations. She denies fever or chills. She denies paroxysmal nocturnal dyspnea or orthopnea. She denies nausea, vomiting, diarrhea or abdominal pain. Currently, she feel better with improvement in her vision. She still feels weak, but improved. She is scheduled for temporal artery biopsy - History Source History Provided By: Patient, Family Member, Medical Record Limitations to Obtaining History: No Limitations - Past Medical History Cardio/Vascular: Yes: HTN Rheumatology: Yes: Other (History pf polymyalgia rheumatica.) - Alcohol/Substance Use Hx Alcohol Use: No - Smoking History Smoking history: Never smoked Home Medications - Allergies Allergies/Adverse Reactions: Allergies Allergy/AdvReac Type Severity Reaction Status Date / Time No Known Allergies Allergy Verified 11/02/17 16:12 - Home Medications Home Medications: Ambulatory Orders Calcium Carbonate [Calcium] 600 mg PO DAILY 12/09/14 Cholecalciferol (Vitamin D3) [Vitamin D3] 1,000 unit PO DAILY 12/09/14 Folic Acid - 1 mg PO DAILY 12/09/14 Gabapentin [Neurontin -] 400 mg PO PRN 12/09/14 Lisinopril/Hydrochlorothiazide [Lisinopril-Hctz 20-25 mg Tab] 1 each PO DAILY [place]-3 Fatty Acids [Fish Oil] 0 mg PO DAILY 12/09/14 Famotidine [Acid Tool Planer Set Up Operator] 20 mg PO PRN 11/02/17 Review of Systems - Review of Systems Constitutional: denies: Chills, Fever Cardiovascular: denies: Chest Pain, Palpitations, Shortness of Breath Respiratory: denies: Cough, Hemoptysis, Orthopnea, PND, SOB, SOB on Exertion Gastrointestinal: denies: Abdominal Pain, Constipation, Diarrhea, Melena, Nausea , Rectal Bleeding, Vomiting Neurological: reports: Headache, Weakness. denies: Dizziness, Seizure, Syncope Vital Signs: Vital Signs Temperature 97.4 F L 11/06/17 18:36 Pulse Rate 61 11/06/17 18:36 Respiratory Rate 20 11/06/17 18:36 Blood Pressure 150/77 11/06/17 18:36 O2 Sat by Pulse Oximetry (%) 97 11/06/17 18:36 Eyes: Yes: PERRL HENT: Yes: Atraumatic Neck: Yes: Supple Respiratory: Yes: Regular, CTA Bilaterally Gastrointestinal: Yes: Normal Bowel Sounds, Soft. No: Tenderness Cardiovascular: Yes: Regular Rate and Rhythm JVD: No Carotid Bruit: No PMI: Non-Displaced Heart Sounds: Yes: S1, S2 Edema: No - Other Data Labs, Other Data: CBC, BMP 11/06/17 06:00 11/06/17 06:00 INR, PTT INR 1.43 (0.82-1.09) H 11/06/17 15:30 Fibrinogen > 646.0 mg/dL (238-498) H 11/03/17 15:48 Laboratory Results - last 24 hr 11/02/17 11/03/17 11/04/17 20:22 15:48 06:00 WBC RBC Hgb Hct MCV MCH MCHC RDW Plt Count MPV Neutrophils % Lymphocytes % Monocytes % Eosinophils % Basophils % ESR PT with INR INR PTT (Actin FS) Sodium Potassium Chloride Carbon Dioxide Anion Gap BUN Creatinine Creat Clearance w eGFR POC Glucometer Random Glucose Calcium Total Bilirubin AST ALT Alkaline Phosphatase Total Protein Albumin Beta Globulins 1.4 H Folate Folate Hemolysate IgG Cancelled IgA Cancelled IgM Cancelled BLANCO & SPEP Interp Total Protein (BLANCO) 5.8 L Albumin (BLANCO) 2.2 L Albumin/Globulin (BLANCO) 0.7 Jryuu-3-Fetnqeocn BLANCO 0.5 H Xuszk-6-Bzzqyddhf BLANCO 1.0 Gamma Globulins (BLANCO) 0.7 BLANCO M-Matt Comment: BLANCO Comments IEP IgG 536 L IEP IgA 1032 H IEP IgM 39 CECILE Screen Lyme Screen IgG & IgM <0.91 Hepatitis A IgM Ab Negative Hep Bs Antigen Negative Hep B Core IgM Ab Negative Hepatitis C Antibody <0.1 Blood Type Antibody Screen 11/04/17 11/05/17 11/06/17 06:00 21:48 05:48 WBC RBC Hgb Hct 32.6 L MCV MCH MCHC RDW Plt Count MPV Neutrophils % Lymphocytes % Monocytes % Eosinophils % Basophils % ESR PT with INR INR PTT (Actin FS) Sodium Potassium Chloride Carbon Dioxide Anion Gap BUN Creatinine Creat Clearance w eGFR POC Glucometer 291 184 Random Glucose Calcium Total Bilirubin AST ALT Alkaline Phosphatase Total Protein Albumin Beta Globulins Folate >1902 Folate Hemolysate >620.0 IgG IgA IgM BLANCO & SPEP Interp Total Protein (BLANCO) Albumin (BLANCO) Albumin/Globulin (BLANCO) Kzool-7-Iwyjclxci BLANCO Lbaak-7-Mrwnqcsyk BLANCO Gamma Globulins (BLANCO) BLANCO M-Matt BLANCO Comments IEP IgG IEP IgA IEP IgM CECILE Screen Negative Lyme Screen IgG & IgM Hepatitis A IgM Ab Hep Bs Antigen Hep B Core IgM Ab Hepatitis C Antibody Blood Type Antibody Screen 11/06/17 11/06/17 11/06/17 06:00 06:00 06:00 WBC 9.1 RBC 2.98 L Hgb 10.7 Hct 30.7 L MCV 102.8 H MCH 36.0 H MCHC 35.0 RDW 12.2 Plt Count 258 MPV 9.1 Neutrophils % 83.9 H Lymphocytes % 12.7 Monocytes % 3.1 L Eosinophils % 0.1 D Basophils % 0.2 ESR PT with INR 17.90 H INR 1.58 H PTT (Actin FS) Sodium 141 Potassium 4.6 Chloride 105 Carbon Dioxide 27 Anion Gap 9 BUN 17 Creatinine 0.7 Creat Clearance w eGFR > 60 POC Glucometer Random Glucose 191 H Calcium 8.7 Total Bilirubin 0.2 D AST 47 H ALT 91 H Alkaline Phosphatase 51 Total Protein 6.0 L Albumin 2.0 L Beta Globulins Folate Folate Hemolysate IgG IgA IgM BLANCO & SPEP Interp Total Protein (BLANCO) Albumin (BLANCO) Albumin/Globulin (BLANCO) Lsiph-8-Ysfneqoei BLANCO Ttuzb-7-Fdziffagl BLANCO Gamma Globulins (BLANCO) BLANCO M-Matt BLANCO Comments IEP IgG IEP IgA IEP IgM CECILE Screen Lyme Screen IgG & IgM Hepatitis A IgM Ab Hep Bs Antigen Hep B Core IgM Ab Hepatitis C Antibody Blood Type Antibody Screen 11/06/17 11/06/17 11/06/17 06:00 06:00 06:00 WBC RBC Hgb Hct MCV MCH MCHC RDW Plt Count MPV Neutrophils % Lymphocytes % Monocytes % Eosinophils % Basophils % ESR 106 H PT with INR INR PTT (Actin FS) 25.8 L Sodium Potassium Chloride Carbon Dioxide Anion Gap BUN Creatinine Creat Clearance w eGFR POC Glucometer Random Glucose Calcium Total Bilirubin AST ALT Alkaline Phosphatase Total Protein Albumin Beta Globulins Folate Folate Hemolysate IgG IgA IgM BLANCO & SPEP Interp Total Protein (BLANCO) Albumin (BLANCO) Albumin/Globulin (BLANCO) Cwxni-5-Ubcnqxdhk BLANCO Kvshj-0-Eglrhjgjs BLANCO Gamma Globulins (BLANCO) BLANCO M-Matt BLANCO Comments IEP IgG IEP IgA IEP IgM CECILE Screen Lyme Screen IgG & IgM Hepatitis A IgM Ab Hep Bs Antigen Hep B Core IgM Ab Hepatitis C Antibody Blood Type O POSITIVE Antibody Screen Negative 11/06/17 11/06/17 11/06/17 09:00 11:45 15:30 WBC RBC Hgb Hct MCV MCH MCHC RDW Plt Count MPV Neutrophils % Lymphocytes % Monocytes % Eosinophils % Basophils % ESR PT with INR 16.20 H INR 1.43 H PTT (Actin FS) Sodium Potassium Chloride Carbon Dioxide Anion Gap BUN Creatinine Creat Clearance w eGFR POC Glucometer 197 Random Glucose Calcium Total Bilirubin AST ALT Alkaline Phosphatase Total Protein Albumin Beta Globulins Folate Folate Hemolysate IgG IgA IgM BLANCO & SPEP Interp Total Protein (BLANCO) Albumin (BLANCO) Albumin/Globulin (BLANCO) Kowcg-7-Ypwyxtbku BLANCO Ejqvb-8-Gtfhefahv BLANCO Gamma Globulins (BLANCO) BLANCO M-Matt BLANCO Comments IEP IgG IEP IgA IEP IgM CECILE Screen Lyme Screen IgG & IgM Hepatitis A IgM Ab Hep Bs Antigen Hep B Core IgM Ab Hepatitis C Antibody Blood Type O POSITIVE Antibody Screen Sinus rhythm with APC, no ST-T abnormality Imaging - Results Chest X-ray: Report Reviewed (Atelectasis) Cat Scan: Report Reviewed (Chest CT, Abdominal CT noted) MRI: Report Reviewed (Brain MRI noted) EKG: Report Reviewed Problem List - Problems (1) HTN (hypertension) Code(s): I10 - ESSENTIAL (PRIMARY) HYPERTENSION Qualifiers: Hypertension type: essential hypertension Qualified Code(s): I10 - Essential (primary) hypertension (2) Generalized weakness Code(s): R53.1 - WEAKNESS (3) Liver function test abnormality Code(s): R94.5 - ABNORMAL RESULTS OF LIVER FUNCTION STUDIES (4) Temporal arteritis Code(s): M31.6 - OTHER GIANT CELL ARTERITIS Assessment/Plan 1. Headache and visual deficit with elevation of ESR suggests temporal arteritis 2. Hypertension 3. PMR 4. Generalized weakness PLAN: 1. Continue current therapy with steroids and await temporal artery biopsy 2. Continue Lisinopril, but increase dose 3. Transthoracic echocardiography to assess LV/RV and valvular function 4. No further cardiac intervention is warranted at this time Further plans are to follow Ronnie Chinchilla MD
[2017-11-06] MEDS ORDERED: PT OWN MED DRAWER 7, Y5N ONE (19:03)
[2017-11-07] MEDS: INSULIN SLIDING SCALE (NOVOLOG) 1 VIAL SQ SCH ×4 (06:08→22:45)
--- NOTE | 2017-11-07 06:38 | PN ---
Progress Note, Physician Chief Complaint: s/p TA biopsy OOB to chair feeling well - Current Medication List Current Medications: Active Medications Acetaminophen (Tylenol -) 650 mg PO Q6H PRN PRN Reason: FEVER Calcium Carbonate (Os-Issa 500mg -) 500 mg PO DAILY [facility] Cholecalciferol (Vitamin D3 -) 1,000 unit PO DAILY MAKAYLA Folic Acid (Folic Acid -) 1 mg PO DAILY MAKAYLA Gabapentin (Neurontin -) 400 mg PO HS PRN PRN Reason: INSOMNIA Levofloxacin (Levaquin 250 Mg Premixed Ivpb -) 250 mg in 50 mls @ 50 mls/hr IVPB DAILY MAKAYLA PRN Reason: Protocol Sodium Chloride (Normal Saline -) 1,000 mls @ 42 mls/hr IV ASDIR [facility] Last Admin: 11/06/17 17:33 Dose: 42 mls/hr Insulin Aspart (Novolog Vial Sliding Scale -) 1 vial SQ ACHS MAKAYLA PRN Reason: Protocol Last Admin: 11/07/17 06:08 Dose: 2 units Lisinopril (Prinivil) 10 mg PO DAILY [facility] Pantoprazole Sodium (Protonix -) 40 mg PO DAILY [facility] Prednisone (Deltasone -) 40 mg PO BID [facility] Last Admin: 11/06/17 21:34 Dose: 40 mg - Objective Vital Signs: Vital Signs Temperature 97.6 F 11/06/17 22:00 Pulse Rate 56 L 11/06/17 22:00 Respiratory Rate 20 11/06/17 22:00 Blood Pressure 118/48 11/06/17 22:00 O2 Sat by Pulse Oximetry (%) 96 11/06/17 21:00 Constitutional: Yes: No Distress, Calm Eyes: Yes: Conjunctiva Clear HENT: Yes: Atraumatic Neck: Yes: Supple Cardiovascular: Yes: Regular Rate and Rhythm Respiratory: Yes: CTA Bilaterally Gastrointestinal: Yes: Soft. No: Distention Genitourinary: No: CVA Tenderness - Left, CVA Tenderness - Right Musculoskeletal: No: Joint Stiffness, Joint Swelling Extremities: No: Cold, Cool, Cyanosis Edema: No Neurological: Yes: WNL, Alert, Oriented ...Motor Strength: WNL Psychiatric: Yes: WNL, Alert, Oriented. No: Agitated, Suicidal Ideation Labs: CBC, BMP 11/06/17 06:00 11/06/17 06:00 INR, PTT INR 1.43 (0.82-1.09) H 11/06/17 15:30 Fibrinogen > 646.0 mg/dL (238-498) H 11/03/17 15:48 - ....Imaging Other: Report Reviewed Assessment/Plan 87 yo female hx of HTN MDS hemochromatosis who presents for evaluation of 2 weeks of chronic headache with generalized weakness. high WBC high ESR, +CECILE c/w autoimmune ds most likely temporal arteritis, h/o PMR, s/p TA biopsy UTI, fever; on antibiotics per ID neurology heme and rheumatology f.u HTN on meds; will adjust doses according to BP control. high LFTs and coagulopathy high INR - GI f/u r/o liver failue / sepsis; tests and previous consults reviewed and d/w pt falls PFX DVT pfx TEDS SCDS no sq heparin b/o high INR; d/w pt and staff
[2017-11-07 07:50] LABS: INR 1.44 (0.82-1.09); PROTHROMBIN TIME (PATIENT) 16.3 SEC (9.7-13.0)
[2017-11-07 07:52] LABS: ACTIVATED PTT 22.9 SECONDS (26.9-34.4)
[2017-11-07] MEDS: predniSONE 20 MG TABLET (UD) PO SCH ×2 (10:00→22:45)
[2017-11-07] MEDS: FOLIC ACID 1 MG TABLET (FP) PO SCH (10:00)
[2017-11-07] MEDS: PANTOPRAZOLE 40 MG TABLET (FP) PO SCH (10:00)
[2017-11-07] MEDS: CALCIUM (OYSTER SHELL) 500 MG TABLET (FP) PO SCH (10:00)
--- NOTE | 2017-11-07 10:00 | PN ---
Progress Note (short form) - Note Progress Note: ENT had outpatient ENT evaluation, sinusitis not clinically suspected, outpatient CT scan of head showed no acute process but headaches persisted and pt admitted with headache and diplopia, was also dehydrated temporal arteritis suspected, s/p right temporal artery biopsy 11-06 Dr. Pollack, pathology report pending pt is feeling much better since admission, on oral prednisone headache improved, diplopia resolved awake alert, comfortable, sitting and feeding herself a snack, anxious to ambulate to [facility] MRI brain reviewed, no acute intracranial process, age related changes, small vessel ischemic changes Impression: headache, diplopia, significant clinical improvement with oral prednisone temporal arteritis suspected, pathology pending Recommend: continue present work-up and management Lewis Peterson MD FACS
[2017-11-07] MEDS: LISINOPRIL 10 MG TABLET (FP) PO SCH (10:01)
[2017-11-07] MEDS: SODIUM CHLORIDE 1,000 ML IV SCH ×2 (10:01→16:26)
[2017-11-07] MEDS: CHOLECALCIFEROL (VITAMIN D3) 1,000 UNIT TABLET (FP) PO SCH (10:01)
[2017-11-07] MEDS: amLODIPine BESYLATE 2.5 MG TABLET (FP) PO SCH (10:44)
[2017-11-07] MEDS ORDERED: INSULIN (NOVOLOG) ASPART 100 UNITS/ML 10ML VIAL ONE (11:15)
--- NOTE | 2017-11-07 12:35 | PN ---
Progress Note, Physician History of Present Illness: Headache and visual disturbances resolved on steroids, underwent right temporal artery biopsy yesterday. - Current Medication List Current Medications: Active Medications Acetaminophen (Tylenol -) 650 mg PO Q6H PRN PRN Reason: FEVER Amlodipine Besylate (Norvasc -) 2.5 mg PO DAILY [facility] Last Admin: 11/07/17 10:44 Dose: 2.5 mg Calcium Carbonate (Os-Issa 500mg -) 500 mg PO DAILY [facility] Last Admin: 11/07/17 10:00 Dose: 500 mg Cholecalciferol (Vitamin D3 -) 1,000 unit PO DAILY [facility] Last Admin: 11/07/17 10:01 Dose: 1,000 unit Folic Acid (Folic Acid -) 1 mg PO DAILY [facility] Last Admin: 11/07/17 10:00 Dose: 1 mg Gabapentin (Neurontin -) 400 mg PO HS PRN PRN Reason: INSOMNIA Levofloxacin (Levaquin 250 Mg Premixed Ivpb -) 250 mg in 50 mls @ 50 mls/hr IVPB DAILY [facility] PRN Reason: Protocol Last Admin: 11/07/17 10:00 Dose: 50 mls/hr Sodium Chloride (Normal Saline -) 1,000 mls @ 42 mls/hr IV ASDIR [facility] Last Admin: 11/07/17 10:01 Dose: 42 mls/hr Insulin Aspart (Novolog Vial Sliding Scale -) 1 vial SQ ACHS [facility] PRN Reason: Protocol Last Admin: 11/07/17 11:18 Dose: 6 units Lisinopril (Prinivil) 10 mg PO DAILY [facility] Last Admin: 11/07/17 10:01 Dose: 10 mg Pantoprazole Sodium (Protonix -) 40 mg PO DAILY [facility] Last Admin: 11/07/17 10:00 Dose: 40 mg Prednisone (Deltasone -) 40 mg PO BID [facility] Last Admin: 11/07/17 10:00 Dose: 40 mg - Objective Vital Signs: Vital Signs Temperature 97.8 F 11/07/17 09:00 Pulse Rate 70 11/07/17 09:00 Respiratory Rate 20 11/07/17 09:00 Blood Pressure 140/68 11/07/17 09:00 O2 Sat by Pulse Oximetry (%) 98 11/07/17 09:00 Constitutional: Yes: No Distress, Calm Neck: Yes: Supple Cardiovascular: Yes: Regular Rate and Rhythm Respiratory: Yes: Regular, CTA Bilaterally Gastrointestinal: Yes: Normal Bowel Sounds, Soft Edema: No Labs: CBC, BMP 11/06/17 06:00 11/06/17 06:00 INR, PTT INR 1.44 (0.82-1.09) H 11/07/17 07:00 Fibrinogen > 646.0 mg/dL (238-498) H 11/03/17 15:48 Problem List - Problems (1) Fatigue Code(s): R53.83 - OTHER FATIGUE Qualifiers: Fatigue type: unspecified Qualified Code(s): R53.83 - Other fatigue (2) HTN (hypertension) Code(s): I10 - ESSENTIAL (PRIMARY) HYPERTENSION Qualifiers: Hypertension type: essential hypertension Qualified Code(s): I10 - Essential (primary) hypertension (3) Temporal arteritis Code(s): M31.6 - OTHER GIANT CELL ARTERITIS (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 Headache and visual deficit with elevation of ESR suggests temporal arteritis 2. Hypertension 3. PMR 4. Generalized weakness PLAN: 1. Continue current therapy with steroids and await temporal artery biopsy results 2. Continue Lisinopril 10 qd and Norvasc 2.5 qd 3. Transthoracic echocardiography to assess LV/RV and valvular function 4. No further cardiac intervention is warranted at this time
--- NOTE | 2017-11-07 13:00 | OP ---
DATE OF OPERATION: 11/06/2017 PREOPERATIVE DIAGNOSIS: Rule out temporal arteritis. POSTPROCEDURE DIAGNOSIS: Rule out temporal arteritis. PROCEDURE: Right temporal artery biopsy. SURGEON: Eugene Harris MD ANESTHESIA: Fractional. BLOOD LOSS: 10 mL. INDICATIONS: The patient is an 87-year-old female complaining of headaches and visual disturbances in her right eye. Rheumatology evaluated her and found that the ESR and CRP are elevated, and she would like a temporal artery biopsy to rule out temporal arteritis. Patient was consented for the procedure understanding all risks, benefits, and alternatives and then taken to the operating room. DESCRIPTION OF PROCEDURE: Once in the operating suite, she was placed on the operating table in the supine manner, and the area of the right temporal region was prepped and draped in the sterile surgical manner. We then went ahead and megan a 4-cm line over the temporal artery pulse. We then injected 10 mL of 1% lidocaine. We then took a 15-blade, made a 4-cm incision. Bovie electrocautery was used to control hemostasis, and we were able to get through the subcutaneous tissues and the fascia. Once we got down through there, we used the Metzenbaum scissors and dissected out our temporal artery. Using hand-held Doppler, we were able to listen to pulse in the temporal artery as well. We then went ahead and took a 4-0 silk, and we went ahead and suture ligated the proximal and distal artery. We then used Metzenbaum scissors ligated the artery and sent it off to Pathology. Wound was then well irrigated. Vicryl 3-0 was used in the subcutaneous tissue, which was approximated in an interrupted manner, and the skin was closed with 4-0 Biosyn in a subcuticular running fashion. The area was wet and dried. Two Steri-Strips were placed. The patient tolerated the procedure with no complications. Patient transferred to PACU in stable condition. EUGENE HARRIS DO [id number]
--- NOTE | 2017-11-07 13:22 | PN ---
Progress Note (short form) - Note Progress Note: Patient seen and examined Known to my office practice for greater than 20 years. History of hemochromatosis with last sono of liver and AFP normal; History of dysproteinemia being monitored with stable disease . Presented with persistent headache , blurry vision over several weeks duration. Undewent termooral artery biopsy for suspected temporal arteritis. Path currently pending of biopsy. Last Vital Signs Temp Pulse Resp BP Pulse Ox 97.8 F 70 20 140/68 98 11/07/17 09:00 11/07/17 09:00 11/07/17 09:00 11/07/17 09:00 11/07/17 09:00 HEENT: MERARY, EOM Intact, s/p right temporal artery biopsy Oropharynx: No thrush, No mucositis Cor: RSR, No murmurs, No gallops Lungs: Clear to P&A Abd: Soft, Normal bowel sounds, No organomegaly Ext:No significant edema Skin: No rashes, Integument intact CBC, BMP 11/06/17 06:00 11/06/17 06:00 Abnormal Lab Results 11/06/17 11/07/17 11/07/17 15:30 06:45 07:00 PT with INR 16.20 H 16.30 H INR 1.43 H 1.44 H PTT (Actin FS) 22.9 L Ferritin 752.927 H Current Medications Generic Name Dose Route Start Last Admin Trade Name Freq PRN Reason Stop Dose Admin Acetaminophen 650 mg 11/06/17 15:38 Tylenol - PO Q6H PRN FEVER Amlodipine Besylate 2.5 mg 11/07/17 10:30 11/07/17 10:44 Norvasc - PO 2.5 mg DAILY [facility]LA Administration Calcium Carbonate 500 mg 11/07/17 10:00 11/07/17 10:00 Os-Issa 500mg - PO 500 mg DAILY [facility] Administration Cholecalciferol 1,000 unit 11/07/17 10:00 11/07/17 10:01 Vitamin D3 - PO 1,000 unit DAILY [facility]LA Administration Folic Acid 1 mg 11/07/17 10:00 11/07/17 10:00 Folic Acid - PO 1 mg DAILY [facility]LA Administration Gabapentin 400 mg 11/06/17 17:21 Neurontin - PO HS PRN INSOMNIA Levofloxacin 250 mg in 50 mls @ 50 mls/hr 11/07/17 10:00 11/07/17 10:00 Levaquin 250 Mg Premixed Ivpb - IVPB 50 mls/hr DAILY [facility]LA Administration Protocol Sodium Chloride 1,000 mls @ 42 mls/hr 11/06/17 15:38 11/07/17 10:01 Normal Saline - IV 42 mls/hr ASDIR [facility]LA Administration Insulin Aspart 1 vial 11/06/17 16:30 11/07/17 11:18 Novolog Vial Sliding Scale - SQ 6 units ACHS [facility]LA Administration Protocol Lisinopril 10 mg 11/07/17 10:00 11/07/17 10:01 Prinivil PO 10 mg DAILY [facility]LA Administration Pantoprazole Sodium 40 mg 11/07/17 10:00 11/07/17 10:00 Protonix - PO 40 mg DAILY [facility]LA Administration Prednisone 40 mg 11/06/17 22:00 11/07/17 10:00 Deltasone - PO 40 mg BID [facility]LA Administration Impression: S/p temporal artery biopsy for suspected temporal arteritis Hemochromatosis Dysproteinemia Hyperglycemia secondary to steroids HBP exacerbated by steroids Plan: Await biopsy Check office records.
--- NOTE | 2017-11-07 13:28 | OP ---
DATE OF OPERATION: 11/06/2017 PREOPERATIVE DIAGNOSIS: Rule out temporal arteritis. POSTOPERATIVE DIAGNOSIS: Rule out temporal arteritis. PROCEDURE: Right temporal artery biopsy. SURGEON: Eugene Harris DO ANESTHESIA: Fractional. BLOOD LOSS: 10 mL. The patient is an 87-year-old female that has elevated ESR and CRP. She was having headaches and visual disturbances in her right eye. It was evident that we would need to rule out temporal arteritis after Rheumatology evaluated her. Patient was consented for the procedure, understanding all risks, benefits and alternatives. Then taken to the operating room. Once in the operating room she was laid down on the operating table in the supine manner and the area of the right temporal region was prepped and draped in a sterile surgical manner. With a skin marker we megan a 4-cm line on top of the pulse of the temporal artery. We then went ahead and prepped and draped the right temporal region in a sterile surgical manner. We then went ahead and injected 10 mL of lidocaine 1% in the area. We then took a 15 blade and made a 4-cm incision. Bovie electrocautery was used to control hemostasis and we were able to get down through the subcutaneous tissue and the fascia. We then went ahead and used Metzenbaum scissors and dissected out the temporal artery. We then used a handheld Doppler and we were able to hear the Doppler signal in the artery. EUGENE HARRIS DO STATISTICAL ASSISTANT/[id number]
[2017-11-07 14:21] LABS: TOTAL PROTEIN, URINE 35.2 mg/dL (Not Estab.)
--- NOTE | 2017-11-07 15:32 | PN ---
Progress Note (short form) - Note Progress Note: Post op day#1.s/p Right temporal artery biopsy under MAC uneventful.Patient stable.No any anesthesia related problem.Patient Dc from the anesthesia care.
--- NOTE | 2017-11-08 05:58 | PN ---
Progress Note, Physician Chief Complaint: biopsy results still pending on PO steroids per rheum and neurology sq insulin per BGM for high GLU sec to steroids po PPI for GI PFX while om steroids as ordered - Current Medication List Current Medications: Active Medications Acetaminophen (Tylenol -) 650 mg PO Q6H PRN PRN Reason: FEVER Amlodipine Besylate (Norvasc -) 2.5 mg PO DAILY [facility] Last Admin: 11/07/17 10:44 Dose: 2.5 mg Calcium Carbonate (Os-Issa 500mg -) 500 mg PO DAILY [facility] Last Admin: 11/07/17 10:00 Dose: 500 mg Cholecalciferol (Vitamin D3 -) 1,000 unit PO DAILY [facility] Last Admin: 11/07/17 10:01 Dose: 1,000 unit Folic Acid (Folic Acid -) 1 mg PO DAILY [facility] Last Admin: 11/07/17 10:00 Dose: 1 mg Gabapentin (Neurontin -) 400 mg PO HS PRN PRN Reason: INSOMNIA Levofloxacin (Levaquin 250 Mg Premixed Ivpb -) 250 mg in 50 mls @ 50 mls/hr IVPB DAILY [facility] PRN Reason: Protocol Last Admin: 11/07/17 10:00 Dose: 50 mls/hr Sodium Chloride (Normal Saline -) 1,000 mls @ 42 mls/hr IV ASDIR [facility] Last Admin: 11/07/17 16:26 Dose: Not Given Insulin Aspart (Novolog Vial Sliding Scale -) 1 vial SQ ACHS [facility] PRN Reason: Protocol Last Admin: 11/07/17 22:45 Dose: 6 units Lisinopril (Prinivil) 10 mg PO DAILY [facility] Last Admin: 11/07/17 10:01 Dose: 10 mg Pantoprazole Sodium (Protonix -) 40 mg PO DAILY [facility] Last Admin: 11/07/17 10:00 Dose: 40 mg Prednisone (Deltasone -) 40 mg PO BID [facility] Last Admin: 11/07/17 22:45 Dose: 40 mg - Objective Vital Signs: Vital Signs Temperature 97.8 F 11/07/17 23:18 Pulse Rate 55 L 11/07/17 23:18 Respiratory Rate 18 11/07/17 23:18 Blood Pressure 143/67 11/07/17 23:18 O2 Sat by Pulse Oximetry (%) 95 11/07/17 21:00 Constitutional: Yes: No Distress, Calm Eyes: Yes: Conjunctiva Clear HENT: Yes: Atraumatic Neck: Yes: Supple Cardiovascular: Yes: Regular Rate and Rhythm Respiratory: Yes: CTA Bilaterally Gastrointestinal: Yes: Soft. No: Distention Genitourinary: No: CVA Tenderness - Left, CVA Tenderness - Right Musculoskeletal: No: Joint Stiffness, Joint Swelling Extremities: No: Cold, Cool, Cyanosis Edema: No Integumentary: No: Rash, Venous Stasis Changes Neurological: Yes: WNL, Alert, Oriented ...Motor Strength: WNL Psychiatric: Yes: WNL, Alert, Oriented. No: Agitated, Suicidal Ideation Labs: CBC, BMP 11/06/17 06:00 11/06/17 06:00 INR, PTT INR 1.44 (0.82-1.09) H 11/07/17 07:00 Fibrinogen > 646.0 mg/dL (238-498) H 11/03/17 15:48 - ....Imaging Other: Report Reviewed Assessment/Plan 87 yo female hx of HTN MDS hemochromatosis who presents for evaluation of 2 weeks of chronic headache with generalized weakness. 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
[2017-11-08] MEDS: INSULIN SLIDING SCALE (NOVOLOG) 1 VIAL SQ SCH ×4 (06:11→21:32)
[2017-11-08 07:24] LABS: BASO % 0.1 % (0-2.0); HEMATOCRIT 31.9 % (32.4-45.2); HEMOGLOBIN 11.2 GM/dL (10.7-15.3); LYMPH % 20.1 % (8-40); MCH 35.9 pg (25.7-33.7); MEAN CELL VOLUME 102.6 fl (80-96); MEAN PLT VOLUME 9.1 fl (7.5-11.1); NEUT % 74.8 % (42.8-82.8); PLATELET COUNT 248 K/MM3 (134-434); RBC 3.11 M/mm3 (3.60-5.2); RDW 11.9 % (11.6-15.6); WHITE BLOOD COUNT 7.5 K/mm3 (4.0-10.0)
[2017-11-08 07:42] LABS: INR 1.39 (0.82-1.09); PROTHROMBIN TIME (PATIENT) 15.7 SEC (9.7-13.0)
[2017-11-08 07:45] LABS: ALBUMIN 2.4 g/dl (3.4-5.0); ANION GAP 9 (8-16); BLOOD UREA NITROGEN 22 mg/dL (7-18); CALCIUM 8.7 mg/dL (8.5-10.1); CHLORIDE 105 mmol/L (98-107); CO2 28 mmol/L (21-32); CREATININE 0.8 mg/dL (0.55-1.02); GLUCOSE,RANDOM 158 mg/dL (74-106); POTASSIUM 4.6 mmol/L (3.5-5.1); SGOT/AST 18 U/L (15-37); SGPT/ALT 61 U/L (12-78); SODIUM 142 mmol/L (136-145)
[2017-11-08 07:48] LABS: ALK PHOS 64 U/L (45-117); BILIRUBIN,TOTAL 0.3 mg/dL (0.2-1.0); TOT PROT 6.2 g/dl (6.4-8.2)
[2017-11-08] MEDS: amLODIPine BESYLATE 2.5 MG TABLET (FP) PO SCH (10:06)
[2017-11-08] MEDS: LISINOPRIL 10 MG TABLET (FP) PO SCH (10:06)
[2017-11-08] MEDS: FOLIC ACID 1 MG TABLET (FP) PO SCH (10:06)
[2017-11-08] MEDS: PANTOPRAZOLE 40 MG TABLET (FP) PO SCH (10:06)
[2017-11-08] MEDS: CALCIUM (OYSTER SHELL) 500 MG TABLET (FP) PO SCH (10:07)
[2017-11-08] MEDS: predniSONE 20 MG TABLET (UD) PO SCH ×2 (10:07→21:28)
[2017-11-08] MEDS: CHOLECALCIFEROL (VITAMIN D3) 1,000 UNIT TABLET (FP) PO SCH (10:07)
--- NOTE | 2017-11-08 11:07 | PN ---
Progress Note, Physician History of Present Illness: Headache and visual disturbances resolved on steroids, POD#2 right temporal artery biopsy. - Current Medication List Current Medications: Active Medications Acetaminophen (Tylenol -) 650 mg PO Q6H PRN PRN Reason: FEVER Amlodipine Besylate (Norvasc -) 2.5 mg PO DAILY [facility] Last Admin: 11/08/17 10:06 Dose: 2.5 mg Calcium Carbonate (Os-Issa 500mg -) 500 mg PO DAILY [facility] Last Admin: 11/08/17 10:07 Dose: 500 mg Cholecalciferol (Vitamin D3 -) 1,000 unit PO DAILY [facility] Last Admin: 11/08/17 10:07 Dose: 1,000 unit Folic Acid (Folic Acid -) 1 mg PO DAILY [facility] Last Admin: 11/08/17 10:06 Dose: 1 mg Gabapentin (Neurontin -) 400 mg PO HS PRN PRN Reason: INSOMNIA Levofloxacin (Levaquin 250 Mg Premixed Ivpb -) 250 mg in 50 mls @ 50 mls/hr IVPB DAILY [facility] PRN Reason: Protocol Last Admin: 11/08/17 10:06 Dose: 50 mls/hr Sodium Chloride (Normal Saline -) 1,000 mls @ 42 mls/hr IV ASDIR [facility] Last Admin: 11/07/17 16:26 Dose: Not Given Insulin Aspart (Novolog Vial Sliding Scale -) 1 vial SQ ACHS [facility] PRN Reason: Protocol Last Admin: 11/08/17 06:11 Dose: 2 units Lisinopril (Prinivil) 10 mg PO DAILY [facility] Last Admin: 11/08/17 10:06 Dose: 10 mg Pantoprazole Sodium (Protonix -) 40 mg PO DAILY [facility] Last Admin: 11/08/17 10:06 Dose: 40 mg Prednisone (Deltasone -) 40 mg PO BID [facility] Last Admin: 11/08/17 10:07 Dose: 40 mg - Objective Vital Signs: Vital Signs Temperature 98 F 11/08/17 09:55 Pulse Rate 70 11/08/17 09:55 Respiratory Rate 18 11/08/17 09:55 Blood Pressure 150/70 11/08/17 09:55 O2 Sat by Pulse Oximetry (%) 95 11/07/17 21:00 Constitutional: Yes: No Distress, Calm Neck: Yes: Supple Cardiovascular: Yes: Regular Rate and Rhythm Respiratory: Yes: Regular, Diminished Gastrointestinal: Yes: Normal Bowel Sounds, Soft Edema: No Labs: CBC, BMP 11/08/17 06:00 11/08/17 06:00 INR, PTT INR 1.39 (0.82-1.09) H 11/08/17 06:00 Fibrinogen > 646.0 mg/dL (238-498) H 11/03/17 15:48 Problem List - Problems (1) Fatigue Code(s): R53.83 - OTHER FATIGUE Qualifiers: Fatigue type: unspecified Qualified Code(s): R53.83 - Other fatigue (2) HTN (hypertension) Code(s): I10 - ESSENTIAL (PRIMARY) HYPERTENSION Qualifiers: Hypertension type: essential hypertension Qualified Code(s): I10 - Essential (primary) hypertension (3) Temporal arteritis Code(s): M31.6 - OTHER GIANT CELL ARTERITIS (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 Headache and visual deficit with elevation of ESR suggests temporal arteritis 2. Hypertension 3. PMR 4. Hemochromatosis 5. Dysproteinemia PLAN: 1. Continue current therapy with steroids with GI protection and await temporal artery biopsy results 2. Continue Lisinopril 10 qd and Norvasc 2.5 qd 3. Transthoracic echocardiography to assess LV/RV and valvular function 4. No further cardiac intervention is warranted at this time
[2017-11-08] MEDS: SODIUM CHLORIDE 1,000 ML IV SCH (13:53)
--- NOTE | 2017-11-08 15:24 | PATH ---
Surgical Pathology Report Patient Name: TEQUILA VARGAS Med. Rec. #: [id number] /Age/Gender: 1930 (Age: 87) / F Account: [id number] Location: [facility] MED/SURG Taken: 11/06/2017 Received: 11/07/2017 Reported: 11/08/2017 Physicians: Vu Lee Specimen(s) Received RIGHT TEMPORAL ARTERY BIOPSY Clinical History Rule out temporal arteritis Final Diagnosis TEMPORAL ARTERY, RIGHT, BIOPSY: MUSCULAR ARTERY WITH NO EVIDENCE OF ARTERITIS. MULTIPLE LEVELS EXAMINED. Electronically Signed Xiomara Sigala M.D. Gross Description Received in formalin labeled "right temporal artery biopsy," is a 1.2 cm in length x 0.1 cm diameter cassidy-brown, cylindrical temporal artery biopsy. The specimen is serially sectioned and entirely submitted in one cassette. /11/07/2017 saudi/11/07/2017
--- NOTE | 2017-11-09 06:04 | DS ---
Physical Examination Vital Signs: Vital Signs Temperature 97.9 F 11/08/17 21:27 Pulse Rate 65 11/08/17 21:27 Respiratory Rate 18 11/08/17 21:27 Blood Pressure 144/84 11/08/17 21:27 O2 Sat by Pulse Oximetry (%) 95 11/08/17 21:00 Findings/Remarks: doing well, no new c/o; generally weak and deconditioned. TA biopsy negative but given clinical presentation, h/o PMR, high ESR and autoantibodies most likely she does have temporal arteritis and needs steroids po, as I d/w dr Huang rheum and neuro dr Bean; to take 60 mg po/day x 1 week then 40 mg/day and to see dr Huang in office in 1 week, d/w pt and d/w her son Silverio all the above also the f/u needed and meds pt to go to SNF for few weeks gastric PFX, BGM with sq insulin coverage, BP control DVT pfx TEDs and SCDs and OOB ambulate, no sq heparin b/o high INR coagulopathy d.w pt and staff, d/w upper caser - pt walked < 50 feet and has stairs at home , should go to SNF; awaiting for insurance authorization; d/w son t time 45 min Constitutional: Yes: No Distress, Calm Eyes: Yes: Conjunctiva Clear HENT: Yes: Atraumatic, Other (s/p R TA biopsy wound closed no rash no bleed no swelling) Neck: Yes: Supple Cardiovascular: Yes: Regular Rate and Rhythm Respiratory: Yes: CTA Bilaterally Gastrointestinal: Yes: Soft. No: Distention, Tenderness Renal/: No: CVA Tenderness - Left, CVA Tenderness - Right Musculoskeletal: No: Joint Stiffness, Joint Swelling Extremities: No: Cold, Cool, Cyanosis Edema: No Integumentary: No: Rash, Venous Stasis Changes Neurological: Yes: WNL, Alert, Oriented ...Motor Strength: WNL Psychiatric: Yes: WNL, Alert, Oriented. No: Agitated, Suicidal Ideation Labs: CBC, BMP 11/08/17 06:00 11/08/17 06:00 Discharge Summary Reason For Visit: HEMATURIA,WEAKNESS Current Active Problems Fatigue (Acute) Generalized weakness (Acute) Giant cell arteritis with polymyalgia rheumatica (Acute) HTN (hypertension) (Acute) Hematuria (Acute) Hemochromatosis (Acute) Liver function test abnormality (Acute) Temporal arteritis (Acute) Tremors of nervous system (Acute) Weakness (Acute) Procedures: Principal: admitted with headaches weakness and blurred vision; high LFTs and coagulopathy; r/o CVA/ sepsis; h/o HTN MDS and PMR; Other Procedures: positive autoimmune ds, UTI; IV antibiotics, po steroids per consults. seen by heme, rheumatology, GI cardiology and neurology;. had temporal artery biopsy, negative but given clinical presentation and labs, still consistent with temporal arteritis. Hospital Course: improved with above; po steroids tapering doses per rheumatology; gastric pfx; BGM control while on steroids; needs close f/u with rheumatology in 1 week; also f/u with heme, cardiology GI and neurology as advised; DC to SNF - Instructions Diet, Activity, Other Instructions: f/u with rheumatology dr Huang in 1 week after DC from hospital and taper steroids per dr Huang also f/u with PCP, GI< neurology, cardiology and hematology in 1-3 months after DC from . gastric PFX; DVT pfx; falls PFX; sq insulin per BGM; RTER if worse or recurrent c/o. Referrals: Viviana Cuba [Primary Care Provider] - Asad Huang MD [Staff Physician] - Paulo Bean MD [Staff Physician] - Sy Everett MD [Staff Physician] - Olga Gongora MD [Staff Physician] - Omar Heaton MD [Staff Physician] - Disposition: [facility] - Home Medications Comprehensive Discharge Medication List: Ambulatory Orders Calcium Carbonate [Calcium] 600 mg PO DAILY 12/09/14 Cholecalciferol (Vitamin D3) [Vitamin D3] 1,000 unit PO DAILY 12/09/14 Folic Acid - 1 mg PO DAILY 12/09/14 Gabapentin [Neurontin -] 400 mg PO PRN 12/09/14 Lisinopril/Hydrochlorothiazide [Lisinopril-Hctz 20-25 mg Tab] 1 each PO DAILY [place]-3 Fatty Acids [Fish Oil] 0 mg PO DAILY 12/09/14 Famotidine [Acid Head Operator Sulfide] 20 mg PO PRN 11/02/17
[2017-11-09] MEDS: INSULIN SLIDING SCALE (NOVOLOG) 1 VIAL SQ SCH ×4 (06:30→22:21)
[2017-11-09] MEDS ORDERED: INSULIN (NOVOLOG) ASPART 100 UNITS/ML 10ML VIAL ONE ×2 (07:28→21:15)
[2017-11-09] MEDS: LISINOPRIL 10 MG TABLET (FP) PO SCH (10:37)
[2017-11-09] MEDS: CALCIUM (OYSTER SHELL) 500 MG TABLET (FP) PO SCH (10:37)
[2017-11-09] MEDS: CHOLECALCIFEROL (VITAMIN D3) 1,000 UNIT TABLET (FP) PO SCH (10:37)
[2017-11-09] MEDS: predniSONE 20 MG TABLET (UD) PO SCH (10:37)
[2017-11-09] MEDS: amLODIPine BESYLATE 2.5 MG TABLET (FP) PO SCH (10:38)
[2017-11-09] MEDS: PANTOPRAZOLE 40 MG TABLET (FP) PO SCH (10:38)
[2017-11-09] MEDS: SODIUM CHLORIDE 1,000 ML IV SCH (10:38)
[2017-11-09] MEDS: FOLIC ACID 1 MG TABLET (FP) PO SCH (10:38)
--- NOTE | 2017-11-09 11:45 | PN ---
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 GI follow up with abnormal LFT's.
--- NOTE | 2017-11-09 14:51 | PN ---
GI Progress Note Subjective: GI NOte: LFTs have essentially normalized. I explained that her iron saturation is less than 50% which is not usually the case with hemochromatosis and places this diagnosis in doubt. I have advised her to followup with Dr Everett after discharge who has treated her for iron overload previously. Fortunately her AFP is normal. Headache resolved. Temporal artery biopsy is apparently negative. - Objective Vital Signs: Vital Signs Temperature 97.9 F 11/09/17 14:10 Pulse Rate 73 11/09/17 14:10 Respiratory Rate 20 11/09/17 14:10 Blood Pressure 151/78 11/09/17 14:10 O2 Sat by Pulse Oximetry (%) 95 11/08/17 21:00 Laboratory Tests 11/08/17 06:00 Total Bilirubin 0.3 D AST 18 ALT 61 Alkaline Phosphatase 64 Constitutional: No Distress ...Auscultate: Yes: Normoactive Bowel Sounds ...Palpate: Yes: Soft, Other (nontender) Labs: CBC, BMP 11/08/17 06:00 11/08/17 06:00 INR, PTT INR 1.39 (0.82-1.09) H 11/08/17 06:00 Fibrinogen > 646.0 mg/dL (238-498) H 11/03/17 15:48 Problem List - Problems (1) Liver function test abnormality Assessment/Plan: Edwina's diagnosis of hemochromatosis is in doubt. I discussed this with Edwina and her son. Code(s): R94.5 - ABNORMAL RESULTS OF LIVER FUNCTION STUDIES (2) Hemochromatosis Assessment/Plan: Although ferritin is > 700 some of his may be acute phase reactivity. her saturation does not support hemochromatosis. I addvised her to followup with Dr Everett to confirm or exclude this diagnosis. Code(s): E83.119 - HEMOCHROMATOSIS, UNSPECIFIED
--- NOTE | 2017-11-09 16:20 | PN ---
Progress Note, Physician History of Present Illness: Doing better No headache On steroids No change in speech Results of the biopsy is neg - Current Medication List Current Medications: Active Medications Acetaminophen (Tylenol -) 650 mg PO Q6H PRN PRN Reason: FEVER Amlodipine Besylate (Norvasc -) 2.5 mg PO DAILY [facility] Last Admin: 11/09/17 10:38 Dose: 2.5 mg Calcium Carbonate (Os-Issa 500mg -) 500 mg PO DAILY [facility] Last Admin: 11/09/17 10:37 Dose: 500 mg Cholecalciferol (Vitamin D3 -) 1,000 unit PO DAILY [facility] Last Admin: 11/09/17 10:37 Dose: 1,000 unit Folic Acid (Folic Acid -) 1 mg PO DAILY [facility] Last Admin: 11/09/17 10:38 Dose: 1 mg Gabapentin (Neurontin -) 400 mg PO HS PRN PRN Reason: INSOMNIA Last Admin: 11/09/17 10:38 Dose: 400 mg Levofloxacin (Levaquin 250 Mg Premixed Ivpb -) 250 mg in 50 mls @ 50 mls/hr IVPB DAILY [facility] PRN Reason: Protocol Last Admin: 11/09/17 10:38 Dose: 50 mls/hr Sodium Chloride (Normal Saline -) 1,000 mls @ 42 mls/hr IV ASDIR [facility] Last Admin: 11/09/17 10:38 Dose: Not Given Insulin Aspart (Novolog Vial Sliding Scale -) 1 vial SQ ACHS [facility] PRN Reason: Protocol Last Admin: 11/09/17 13:59 Dose: Not Given Lisinopril (Prinivil) 10 mg PO DAILY [facility] Last Admin: 11/09/17 10:37 Dose: 10 mg Pantoprazole Sodium (Protonix -) 40 mg PO DAILY [facility] Last Admin: 11/09/17 10:38 Dose: 40 mg Prednisone (Deltasone -) 60 mg PO DAILY [facility] Last Admin: 11/09/17 10:37 Dose: 60 mg - Objective Vital Signs: Vital Signs Temperature 97.9 F 11/09/17 14:10 Pulse Rate 73 11/09/17 14:10 Respiratory Rate 20 11/09/17 14:10 Blood Pressure 151/78 11/09/17 14:10 O2 Sat by Pulse Oximetry (%) 95 11/08/17 21:00 Constitutional: Yes: Well Nourished Eyes: Yes: WNL HENT: Yes: WNL Neurological: Yes: Alert, Oriented, Babinski negative ...Motor Strength: WNL Labs: CBC, BMP 11/08/17 06:00 11/08/17 06:00 INR, PTT INR 1.39 (0.82-1.09) H 11/08/17 06:00 Fibrinogen > 646.0 mg/dL (238-498) H 11/03/17 15:48 Problem List - Problems (1) Tremors of nervous system Assessment/Plan: Red wine extract Code(s): R25.1 - TREMOR, UNSPECIFIED (2) Temporal arteritis Assessment/Plan: Neg diagnosis does not preclud eteh Dx TA Taper steroids by 10-15 every day to lowest that keeps her headache free Neuro ok SNF Code(s): M31.6 - OTHER GIANT CELL ARTERITIS
[2017-11-10] MEDS: INSULIN SLIDING SCALE (NOVOLOG) 1 VIAL SQ SCH ×4 (06:00→21:32)
--- NOTE | 2017-11-10 06:59 | PN ---
Progress Note, Physician Chief Complaint: in bed NAD VSS but BP occasionally high; will increase norvasc no new c/o no headaches no visual changes; gets OOB few times a day, walks to the bathroom, to the solarium, or OOB to chair; TEDs and SCDs to legs on/off no sq heparin b/o coagulopathy, s/p recent arterial biopsy; pt ambulatory awaiting insurance authorization for SNF and bed at SNF I spoke with pt's son at length yesterday about pt's condition and treatment and about f/u needed - Current Medication List Current Medications: Active Medications Acetaminophen (Tylenol -) 650 mg PO Q6H PRN PRN Reason: FEVER Amlodipine Besylate (Norvasc -) 2.5 mg PO DAILY [facility] Last Admin: 11/09/17 10:38 Dose: 2.5 mg Calcium Carbonate (Os-Issa 500mg -) 500 mg PO DAILY [facility] Last Admin: 11/09/17 10:37 Dose: 500 mg Cholecalciferol (Vitamin D3 -) 1,000 unit PO DAILY [facility] Last Admin: 11/09/17 10:37 Dose: 1,000 unit Folic Acid (Folic Acid -) 1 mg PO DAILY [facility] Last Admin: 11/09/17 10:38 Dose: 1 mg Gabapentin (Neurontin -) 400 mg PO HS PRN PRN Reason: INSOMNIA Last Admin: 11/09/17 10:38 Dose: 400 mg Levofloxacin (Levaquin 250 Mg Premixed Ivpb -) 250 mg in 50 mls @ 50 mls/hr IVPB DAILY [facility] PRN Reason: Protocol Last Admin: 11/09/17 10:38 Dose: 50 mls/hr Insulin Aspart (Novolog Vial Sliding Scale -) 1 vial SQ ACHS [facility] PRN Reason: Protocol Last Admin: 11/10/17 06:00 Dose: Not Given Lisinopril (Prinivil) 10 mg PO DAILY [facility] Last Admin: 11/09/17 10:37 Dose: 10 mg Pantoprazole Sodium (Protonix -) 40 mg PO DAILY [facility] Last Admin: 11/09/17 10:38 Dose: 40 mg Prednisone (Deltasone -) 60 mg PO DAILY [facility] Last Admin: 11/09/17 10:37 Dose: 60 mg - Objective Vital Signs: Vital Signs Temperature 97.8 F 11/10/17 04:57 Pulse Rate 55 L 11/10/17 04:57 Respiratory Rate 18 11/10/17 04:57 Blood Pressure 147/72 11/10/17 04:57 O2 Sat by Pulse Oximetry (%) 95 11/09/17 21:00 Constitutional: Yes: No Distress, Calm Eyes: Yes: Conjunctiva Clear HENT: Yes: Atraumatic Neck: Yes: Supple Cardiovascular: Yes: Regular Rate and Rhythm Respiratory: Yes: CTA Bilaterally Gastrointestinal: Yes: Soft. No: Distention Genitourinary: No: CVA Tenderness - Left, CVA Tenderness - Right Musculoskeletal: No: Joint Stiffness, Joint Swelling Extremities: No: Cold, Cool, Cyanosis Edema: No Integumentary: No: Rash, Venous Stasis Changes Neurological: Yes: WNL, Alert, Oriented ...Motor Strength: WNL Psychiatric: Yes: WNL, Alert, Oriented. No: Agitated, Suicidal Ideation Labs: CBC, BMP 11/08/17 06:00 11/08/17 06:00 INR, PTT INR 1.39 (0.82-1.09) H 11/08/17 06:00 Fibrinogen > 646.0 mg/dL (238-498) H 11/03/17 15:48 - ....Imaging Other: Report Reviewed Assessment/Plan 87 yo female hx of HTN MDS hemochromatosis who presents for evaluation of 2 weeks of chronic headache with generalized weakness. 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
[2017-11-10] MEDS: CALCIUM (OYSTER SHELL) 500 MG TABLET (FP) PO SCH (09:23)
[2017-11-10] MEDS: amLODIPine BESYLATE 2.5 MG TABLET (FP) PO SCH (09:23)
[2017-11-10] MEDS: CHOLECALCIFEROL (VITAMIN D3) 1,000 UNIT TABLET (FP) PO SCH (09:24)
[2017-11-10] MEDS: PANTOPRAZOLE 40 MG TABLET (FP) PO SCH (09:24)
[2017-11-10] MEDS: predniSONE 20 MG TABLET (UD) PO SCH (09:24)
[2017-11-10] MEDS: FOLIC ACID 1 MG TABLET (FP) PO SCH (09:24)
[2017-11-10] MEDS: LISINOPRIL 10 MG TABLET (FP) PO SCH (09:24)
--- NOTE | 2017-11-10 17:29 | PN ---
Progress Note, Physician History of Present Illness: Headache and visual disturbances resolved on steroids, right temporal artery biopsy was negative for TA. - Current Medication List Current Medications: Active Medications Acetaminophen (Tylenol -) 650 mg PO Q6H PRN PRN Reason: FEVER Amlodipine Besylate (Norvasc -) 5 mg PO DAILY [facility] Calcium Carbonate (Os-Issa 500mg -) 500 mg PO DAILY [facility] Last Admin: 11/10/17 09:23 Dose: 500 mg Cholecalciferol (Vitamin D3 -) 1,000 unit PO DAILY [facility] Last Admin: 11/10/17 09:24 Dose: 1,000 unit Folic Acid (Folic Acid -) 1 mg PO DAILY [facility] Last Admin: 11/10/17 09:24 Dose: 1 mg Gabapentin (Neurontin -) 400 mg PO HS PRN PRN Reason: INSOMNIA Last Admin: 11/09/17 10:38 Dose: 400 mg Levofloxacin (Levaquin 250 Mg Premixed Ivpb -) 250 mg in 50 mls @ 50 mls/hr IVPB DAILY [facility] PRN Reason: Protocol Last Admin: 11/10/17 09:24 Dose: 50 mls/hr Insulin Aspart (Novolog Vial Sliding Scale -) 1 vial SQ ACHS [facility] PRN Reason: Protocol Last Admin: 11/10/17 17:11 Dose: 4 units Lisinopril (Prinivil) 10 mg PO DAILY [facility] Last Admin: 11/10/17 09:24 Dose: 10 mg Pantoprazole Sodium (Protonix -) 40 mg PO DAILY [facility] Last Admin: 11/10/17 09:24 Dose: 40 mg Prednisone (Deltasone -) 60 mg PO DAILY [facility] Last Admin: 11/10/17 09:24 Dose: 60 mg - Objective Vital Signs: Vital Signs Temperature 97.9 F 11/10/17 14:44 Pulse Rate 69 11/10/17 14:44 Respiratory Rate 18 11/10/17 14:44 Blood Pressure 152/78 11/10/17 14:44 O2 Sat by Pulse Oximetry (%) 97 11/10/17 09:00 Constitutional: Yes: No Distress, Calm Neck: Yes: Supple Cardiovascular: Yes: Regular Rate and Rhythm Respiratory: Yes: Regular, CTA Bilaterally Gastrointestinal: Yes: Normal Bowel Sounds, Soft Edema: No Labs: CBC, BMP 11/08/17 06:00 11/08/17 06:00 INR, PTT INR 1.39 (0.82-1.09) H 11/08/17 06:00 Fibrinogen > 646.0 mg/dL (238-498) H 11/03/17 15:48 Problem List - Problems (1) Fatigue Code(s): R53.83 - OTHER FATIGUE Qualifiers: Fatigue type: unspecified Qualified Code(s): R53.83 - Other fatigue (2) HTN (hypertension) Code(s): I10 - ESSENTIAL (PRIMARY) HYPERTENSION Qualifiers: Hypertension type: essential hypertension Qualified Code(s): I10 - Essential (primary) hypertension (3) Temporal arteritis Code(s): M31.6 - OTHER GIANT CELL ARTERITIS (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 Headache and visual deficit with elevation of ESR suggests temporal arteritis despite negative biopsy 2. Hypertension 3. PMR 4. Dysproteinemia PLAN: 1. Continue steroid taper with GI protection 2. Continue Lisinopril 10 qd and increased Norvasc 5 qd 3. Await SNF placement
[2017-11-11] MEDS: INSULIN SLIDING SCALE (NOVOLOG) 1 VIAL SQ SCH ×4 (06:39→21:03)
[2017-11-11 08:12] LABS: BASO % 0.1 % (0-2.0); EOS % 0.5 % (0-4.5); HEMATOCRIT 35.1 % (32.4-45.2); HEMOGLOBIN 12.3 GM/dL (10.7-15.3); LYMPH % 36.5 % (8-40); MCHC 35.1 g/dl (32.0-36.0); MEAN CELL VOLUME 102.7 fl (80-96); MEAN PLT VOLUME 9.2 fl (7.5-11.1); MONO % 8.8 % (3.8-10.2); NEUT % 54.1 % (42.8-82.8); PLATELET COUNT 212 K/MM3 (134-434); RBC 3.42 M/mm3 (3.60-5.2); RDW 12.2 % (11.6-15.6); WHITE BLOOD COUNT 10.2 K/mm3 (4.0-10.0)
[2017-11-11 08:24] LABS: INR 1.26 (0.82-1.09); PROTHROMBIN TIME (PATIENT) 14.2 SEC (9.7-13.0)
[2017-11-11 08:26] LABS: ACTIVATED PTT 20.8 SECONDS (26.9-34.4)
[2017-11-11 08:38] LABS: ALBUMIN 2.6 g/dl (3.4-5.0); ANION GAP 8 (8-16); BLOOD UREA NITROGEN 26 mg/dL (7-18); CALCIUM 8.9 mg/dL (8.5-10.1); CHLORIDE 102 mmol/L (98-107); CO2 30 mmol/L (21-32); GLUCOSE,RANDOM 88 mg/dL (74-106); SODIUM 140 mmol/L (136-145)
[2017-11-11 08:48] LABS: ALK PHOS 57 U/L (45-117); BILIRUBIN,TOTAL 0.4 mg/dL (0.2-1.0); CREATININE 0.8 mg/dL (0.55-1.02); SGOT/AST 22 U/L (15-37); SGPT/ALT 64 U/L (12-78); TOT PROT 6.1 g/dl (6.4-8.2)
[2017-11-11] MEDS: LISINOPRIL 10 MG TABLET (FP) PO SCH (09:44)
[2017-11-11] MEDS: CHOLECALCIFEROL (VITAMIN D3) 1,000 UNIT TABLET (FP) PO SCH (09:44)
[2017-11-11] MEDS: CALCIUM (OYSTER SHELL) 500 MG TABLET (FP) PO SCH (09:44)
[2017-11-11] MEDS: PANTOPRAZOLE 40 MG TABLET (FP) PO SCH (09:44)
[2017-11-11] MEDS: FOLIC ACID 1 MG TABLET (FP) PO SCH (09:44)
[2017-11-11] MEDS: amLODIPine BESYLATE 5 MG TABLET (FP) PO SCH (09:45)
[2017-11-11] MEDS: predniSONE 20 MG TABLET (UD) PO SCH (09:45)
--- NOTE | 2017-11-11 11:16 | PN ---
Progress Note, Physician Chief Complaint: feeling better but generally weak - Current Medication List Current Medications: Active Medications Acetaminophen (Tylenol -) 650 mg PO Q6H PRN PRN Reason: FEVER Amlodipine Besylate (Norvasc -) 5 mg PO DAILY [facility] Last Admin: 11/11/17 09:45 Dose: 5 mg Calcium Carbonate (Os-Issa 500mg -) 500 mg PO DAILY [facility] Last Admin: 11/11/17 09:44 Dose: 500 mg Cholecalciferol (Vitamin D3 -) 1,000 unit PO DAILY [facility] Last Admin: 11/11/17 09:44 Dose: 1,000 unit Folic Acid (Folic Acid -) 1 mg PO DAILY [facility] Last Admin: 11/11/17 09:44 Dose: 1 mg Gabapentin (Neurontin -) 400 mg PO HS PRN PRN Reason: INSOMNIA Last Admin: 11/09/17 10:38 Dose: 400 mg Heparin Sodium (Porcine) (Heparin -) 5,000 unit SQ BID [facility] Levofloxacin (Levaquin 250 Mg Premixed Ivpb -) 250 mg in 50 mls @ 50 mls/hr IVPB DAILY [facility] PRN Reason: Protocol Last Admin: 11/11/17 09:45 Dose: 50 mls/hr Insulin Aspart (Novolog Vial Sliding Scale -) 1 vial SQ ACHS [facility] PRN Reason: Protocol Last Admin: 11/11/17 06:39 Dose: Not Given Lisinopril (Prinivil) 10 mg PO DAILY [facility] Last Admin: 11/11/17 09:44 Dose: 10 mg Pantoprazole Sodium (Protonix -) 40 mg PO DAILY [facility] Last Admin: 11/11/17 09:44 Dose: 40 mg Prednisone (Deltasone -) 60 mg PO DAILY [facility] Last Admin: 11/11/17 09:45 Dose: 60 mg - Objective Vital Signs: Vital Signs Temperature 97.9 F 11/11/17 04:56 Pulse Rate 59 L 11/11/17 04:56 Respiratory Rate 20 11/11/17 04:56 Blood Pressure 140/59 11/11/17 04:56 O2 Sat by Pulse Oximetry (%) 96 11/10/17 20:47 Constitutional: Yes: No Distress, Calm Eyes: Yes: Conjunctiva Clear HENT: Yes: Atraumatic Neck: Yes: Supple Cardiovascular: Yes: Regular Rate and Rhythm Respiratory: Yes: CTA Bilaterally Gastrointestinal: Yes: Soft. No: Distention, Tenderness Genitourinary: No: CVA Tenderness - Left, CVA Tenderness - Right Musculoskeletal: No: Joint Stiffness, Joint Swelling Extremities: No: Cold, Cool, Cyanosis Edema: No Integumentary: No: Rash, Venous Stasis Changes Neurological: Yes: WNL, Alert, Oriented ...Motor Strength: WNL Psychiatric: Yes: WNL, Alert, Oriented. No: Agitated, Suicidal Ideation Labs: CBC, BMP 11/11/17 06:40 11/11/17 06:40 INR, PTT INR 1.26 (0.82-1.09) H 11/11/17 06:40 Fibrinogen > 646.0 mg/dL (238-498) H 11/03/17 15:48 - ....Imaging Other: Report Reviewed Assessment/Plan 87 yo female hx of HTN MDS hemochromatosis who presents for evaluation of 2 weeks of chronic headache with generalized weakness. 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
--- NOTE | 2017-11-11 11:22 | PN ---
GI Progress Note Subjective: GI NOte: NO GI complaints. LFTs normalizing. - Objective Vital Signs: Vital Signs Temperature 97.9 F 11/11/17 04:56 Pulse Rate 59 L 11/11/17 04:56 Respiratory Rate 20 11/11/17 04:56 Blood Pressure 140/59 11/11/17 04:56 O2 Sat by Pulse Oximetry (%) 96 11/10/17 20:47 Laboratory Tests 11/08/17 11/11/17 06:00 06:40 Total Bilirubin 0.3 D 0.4 D AST 18 22 ALT 61 64 Alkaline Phosphatase 64 57 Laboratory Tests 11/03/17 11/04/17 15:48 06:00 CECILE Screen Negative Hepatitis A IgM Ab Negative Hep Bs Antigen Negative Hep B Core IgM Ab Negative Hepatitis C Antibody <0.1 Constitutional: No Distress ...Auscultate: Yes: Normoactive Bowel Sounds ...Palpate: Yes: Soft, Other (nontender) Labs: CBC, BMP 11/11/17 06:40 11/11/17 06:40 INR, PTT INR 1.26 (0.82-1.09) H 11/11/17 06:40 Fibrinogen > 646.0 mg/dL (238-498) H 11/03/17 15:48 Problem List - Problems (1) Liver function test abnormality Assessment/Plan: Edwina's diagnosis of hemochromatosis remains in doubt. She may have ANTONIO however. Advised to followup in our office. Code(s): R94.5 - ABNORMAL RESULTS OF LIVER FUNCTION STUDIES (2) Hemochromatosis Code(s): E83.119 - HEMOCHROMATOSIS, UNSPECIFIED
--- NOTE | 2017-11-11 14:06 | PN ---
Progress Note, Physician History of Present Illness: Headache and visual disturbances resolved on steroids, right temporal artery biopsy was negative for TA. Ambulating in hallway. - Current Medication List Current Medications: Active Medications Acetaminophen (Tylenol -) 650 mg PO Q6H PRN PRN Reason: FEVER Amlodipine Besylate (Norvasc -) 5 mg PO DAILY [facility] Last Admin: 11/11/17 09:45 Dose: 5 mg Calcium Carbonate (Os-Issa 500mg -) 500 mg PO DAILY [facility] Last Admin: 11/11/17 09:44 Dose: 500 mg Cholecalciferol (Vitamin D3 -) 1,000 unit PO DAILY [facility] Last Admin: 11/11/17 09:44 Dose: 1,000 unit Folic Acid (Folic Acid -) 1 mg PO DAILY [facility] Last Admin: 11/11/17 09:44 Dose: 1 mg Gabapentin (Neurontin -) 400 mg PO HS PRN PRN Reason: INSOMNIA Last Admin: 11/09/17 10:38 Dose: 400 mg Heparin Sodium (Porcine) (Heparin -) 5,000 unit SQ BID [facility] Insulin Aspart (Novolog Vial Sliding Scale -) 1 vial SQ ACHS [facility] PRN Reason: Protocol Last Admin: 11/11/17 12:11 Dose: Not Given Levofloxacin (Levaquin -) 250 mg PO DAILY [facility] Lisinopril (Prinivil) 10 mg PO DAILY [facility] Last Admin: 11/11/17 09:44 Dose: 10 mg Pantoprazole Sodium (Protonix -) 40 mg PO DAILY [facility] Last Admin: 11/11/17 09:44 Dose: 40 mg Prednisone (Deltasone -) 60 mg PO DAILY [facility] Last Admin: 11/11/17 09:45 Dose: 60 mg - Objective Vital Signs: Vital Signs Temperature 98.2 F 11/11/17 10:00 Pulse Rate 76 11/11/17 10:00 Respiratory Rate 20 11/11/17 10:00 Blood Pressure 141/74 11/11/17 10:00 O2 Sat by Pulse Oximetry (%) 96 11/11/17 09:00 Constitutional: Yes: No Distress, Calm Neck: Yes: Supple Cardiovascular: Yes: Regular Rate and Rhythm Respiratory: Yes: Regular, Diminished Gastrointestinal: Yes: Normal Bowel Sounds, Soft Edema: No Labs: CBC, BMP 11/11/17 06:40 11/11/17 06:40 INR, PTT INR 1.26 (0.82-1.09) H 11/11/17 06:40 Fibrinogen > 646.0 mg/dL (238-498) H 11/03/17 15:48 Problem List - Problems (1) Fatigue Code(s): R53.83 - OTHER FATIGUE Qualifiers: Fatigue type: unspecified Qualified Code(s): R53.83 - Other fatigue (2) HTN (hypertension) Code(s): I10 - ESSENTIAL (PRIMARY) HYPERTENSION Qualifiers: Hypertension type: essential hypertension Qualified Code(s): I10 - Essential (primary) hypertension (3) Temporal arteritis Code(s): M31.6 - OTHER GIANT CELL ARTERITIS (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 Headache and visual deficit with elevation of ESR suggests temporal arteritis despite negative biopsy 2. Hypertension 3. PMR 4. Dysproteinemia PLAN: 1. Continue steroid taper with GI protection 2. Continue Lisinopril 10 qd and Norvasc 5 qd 3. Await SNF placement
[2017-11-11] MEDS: HEPARIN NA (PORCINE) 5,000 UNITS/ML 1ML VIAL SQ SCH ×2 (14:47→21:02)
[2017-11-12] MEDS: INSULIN SLIDING SCALE (NOVOLOG) 1 VIAL SQ SCH ×4 (06:21→22:08)
--- NOTE | 2017-11-12 08:12 | PN ---
Progress Note, Physician Chief Complaint: per d/w CM pt is still waiting for insurance authorization for DC to SNF but expected to be obtained today feels better no c/o started on sq heparin for DVT PFX; PTT and coags NL now. see DC summary done 11/09 - Current Medication List Current Medications: Active Medications Acetaminophen (Tylenol -) 650 mg PO Q6H PRN PRN Reason: FEVER Amlodipine Besylate (Norvasc -) 5 mg PO DAILY [facility] Last Admin: 11/11/17 09:45 Dose: 5 mg Calcium Carbonate (Os-Issa 500mg -) 500 mg PO DAILY [facility] Last Admin: 11/11/17 09:44 Dose: 500 mg Cholecalciferol (Vitamin D3 -) 1,000 unit PO DAILY [facility] Last Admin: 11/11/17 09:44 Dose: 1,000 unit Folic Acid (Folic Acid -) 1 mg PO DAILY [facility] Last Admin: 11/11/17 09:44 Dose: 1 mg Gabapentin (Neurontin -) 400 mg PO HS PRN PRN Reason: INSOMNIA Last Admin: 11/09/17 10:38 Dose: 400 mg Heparin Sodium (Porcine) (Heparin -) 5,000 unit SQ BID [facility] Last Admin: 11/11/17 21:02 Dose: 5,000 unit Insulin Aspart (Novolog Vial Sliding Scale -) 1 vial SQ ACHS [facility] PRN Reason: Protocol Last Admin: 11/12/17 06:21 Dose: Not Given Levofloxacin (Levaquin -) 250 mg PO DAILY [facility] Last Admin: 11/11/17 14:30 Dose: Not Given Lisinopril (Prinivil) 10 mg PO DAILY [facility] Last Admin: 11/11/17 09:44 Dose: 10 mg Pantoprazole Sodium (Protonix -) 40 mg PO DAILY [facility] Last Admin: 11/11/17 09:44 Dose: 40 mg Prednisone (Deltasone -) 60 mg PO DAILY [facility] Last Admin: 11/11/17 09:45 Dose: 60 mg - Objective Vital Signs: Vital Signs Temperature 97.8 F 11/12/17 06:18 Pulse Rate 56 L 11/12/17 06:18 Respiratory Rate 18 11/12/17 06:18 Blood Pressure 111/58 11/12/17 06:18 O2 Sat by Pulse Oximetry (%) 96 11/11/17 19:51 Constitutional: Yes: No Distress, Calm Eyes: Yes: Conjunctiva Clear HENT: Yes: Atraumatic Neck: Yes: Supple Cardiovascular: Yes: Regular Rate and Rhythm Respiratory: Yes: CTA Bilaterally Gastrointestinal: Yes: Soft. No: Distention Genitourinary: No: CVA Tenderness - Left, CVA Tenderness - Right Musculoskeletal: No: Joint Stiffness, Joint Swelling Extremities: No: Cold, Cool, Cyanosis Edema: No Integumentary: No: Rash, Venous Stasis Changes Neurological: Yes: WNL, Alert, Oriented ...Motor Strength: WNL Psychiatric: Yes: WNL, Alert, Oriented. No: Agitated, Suicidal Ideation Labs: CBC, BMP 11/11/17 06:40 11/11/17 06:40 INR, PTT INR 1.26 (0.82-1.09) H 11/11/17 06:40 Fibrinogen > 646.0 mg/dL (238-498) H 11/03/17 15:48 - ....Imaging Other: Report Reviewed Assessment/Plan 87 yo female hx of HTN MDS hemochromatosis who presents for evaluation of 2 weeks of chronic headache with generalized weakness. 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
[2017-11-12] MEDS: predniSONE 20 MG TABLET (UD) PO SCH (09:23)
[2017-11-12] MEDS: CALCIUM (OYSTER SHELL) 500 MG TABLET (FP) PO SCH (09:23)
[2017-11-12] MEDS: FOLIC ACID 1 MG TABLET (FP) PO SCH (09:23)
[2017-11-12] MEDS: amLODIPine BESYLATE 5 MG TABLET (FP) PO SCH (09:24)
[2017-11-12] MEDS: PANTOPRAZOLE 40 MG TABLET (FP) PO SCH (09:24)
[2017-11-12] MEDS: CHOLECALCIFEROL (VITAMIN D3) 1,000 UNIT TABLET (FP) PO SCH (09:24)
[2017-11-12] MEDS: LISINOPRIL 10 MG TABLET (FP) PO SCH (09:24)
[2017-11-12] MEDS: HEPARIN NA (PORCINE) 5,000 UNITS/ML 1ML VIAL SQ SCH ×2 (09:24→22:08)
[2017-11-12] MEDS ORDERED: INSULIN (NOVOLOG) ASPART 100 UNITS/ML 10ML VIAL ONE ×2 (11:04→20:57)
--- NOTE | 2017-11-12 11:47 | PN ---
Progress Note, Physician History of Present Illness: Headache and visual disturbances resolved on steroids, right temporal artery biopsy was negative for TA. Ambulating in hallway. - Current Medication List Current Medications: Active Medications Acetaminophen (Tylenol -) 650 mg PO Q6H PRN PRN Reason: FEVER Amlodipine Besylate (Norvasc -) 5 mg PO DAILY [facility] Last Admin: 11/12/17 09:24 Dose: 5 mg Calcium Carbonate (Os-Issa 500mg -) 500 mg PO DAILY [facility] Last Admin: 11/12/17 09:23 Dose: 500 mg Cholecalciferol (Vitamin D3 -) 1,000 unit PO DAILY [facility] Last Admin: 11/12/17 09:24 Dose: 1,000 unit Folic Acid (Folic Acid -) 1 mg PO DAILY [facility] Last Admin: 11/12/17 09:23 Dose: 1 mg Gabapentin (Neurontin -) 400 mg PO HS PRN PRN Reason: INSOMNIA Last Admin: 11/09/17 10:38 Dose: 400 mg Heparin Sodium (Porcine) (Heparin -) 5,000 unit SQ BID [facility] Last Admin: 11/12/17 09:24 Dose: 5,000 unit Insulin Aspart (Novolog Vial Sliding Scale -) 1 vial SQ ACHS [facility] PRN Reason: Protocol Last Admin: 11/12/17 11:14 Dose: 4 units Levofloxacin (Levaquin -) 250 mg PO DAILY@0600 [facility] Lisinopril (Prinivil) 10 mg PO DAILY [facility] Last Admin: 11/12/17 09:24 Dose: 10 mg Pantoprazole Sodium (Protonix -) 40 mg PO DAILY [facility] Last Admin: 11/12/17 09:24 Dose: 40 mg Prednisone (Deltasone -) 60 mg PO DAILY [facility] Last Admin: 11/12/17 09:23 Dose: 60 mg - Objective Vital Signs: Vital Signs Temperature 97.5 F L 11/12/17 10:00 Pulse Rate 71 11/12/17 10:00 Respiratory Rate 18 11/12/17 10:00 Blood Pressure 122/78 11/12/17 10:00 O2 Sat by Pulse Oximetry (%) 98 11/12/17 09:00 Constitutional: Yes: No Distress, Calm Neck: Yes: Supple Cardiovascular: Yes: Regular Rate and Rhythm Respiratory: Yes: Regular, CTA Bilaterally Gastrointestinal: Yes: Normal Bowel Sounds, Soft Edema: No Labs: CBC, BMP 11/11/17 06:40 11/11/17 06:40 INR, PTT INR 1.26 (0.82-1.09) H 11/11/17 06:40 Fibrinogen > 646.0 mg/dL (238-498) H 11/03/17 15:48 Problem List - Problems (1) Fatigue Code(s): R53.83 - OTHER FATIGUE Qualifiers: Fatigue type: unspecified Qualified Code(s): R53.83 - Other fatigue (2) HTN (hypertension) Code(s): I10 - ESSENTIAL (PRIMARY) HYPERTENSION Qualifiers: Hypertension type: essential hypertension Qualified Code(s): I10 - Essential (primary) hypertension (3) Temporal arteritis Code(s): M31.6 - OTHER GIANT CELL ARTERITIS (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 Headache and visual deficit with elevation of ESR suggests temporal arteritis despite negative biopsy 2. Hypertension 3. PMR 4. Dysproteinemia PLAN: 1. Continue steroid taper with GI protection 2. Continue Lisinopril 10 qd and Norvasc 5 qd 3. Await SNF placement
--- NOTE | 2017-11-13 06:19 | PN ---
Progress Note, Physician Chief Complaint: in bed nad feels better awaiting DC to SNF and insurance approval - Current Medication List Current Medications: Active Medications Acetaminophen (Tylenol -) 650 mg PO Q6H PRN PRN Reason: FEVER Amlodipine Besylate (Norvasc -) 5 mg PO DAILY [facility] Last Admin: 11/12/17 09:24 Dose: 5 mg Calcium Carbonate (Os-Issa 500mg -) 500 mg PO DAILY [facility] Last Admin: 11/12/17 09:23 Dose: 500 mg Cholecalciferol (Vitamin D3 -) 1,000 unit PO DAILY [facility] Last Admin: 11/12/17 09:24 Dose: 1,000 unit Folic Acid (Folic Acid -) 1 mg PO DAILY [facility] Last Admin: 11/12/17 09:23 Dose: 1 mg Gabapentin (Neurontin -) 400 mg PO HS PRN PRN Reason: INSOMNIA Last Admin: 11/09/17 10:38 Dose: 400 mg Heparin Sodium (Porcine) (Heparin -) 5,000 unit SQ BID [facility] Last Admin: 11/12/17 22:08 Dose: 5,000 unit Insulin Aspart (Novolog Vial Sliding Scale -) 1 vial SQ ACHS [facility] PRN Reason: Protocol Last Admin: 11/12/17 22:08 Dose: 2 units Levofloxacin (Levaquin -) 250 mg PO DAILY@0600 [facility] Lisinopril (Prinivil) 10 mg PO DAILY [facility] Last Admin: 11/12/17 09:24 Dose: 10 mg Pantoprazole Sodium (Protonix -) 40 mg PO DAILY [facility] Last Admin: 11/12/17 09:24 Dose: 40 mg Prednisone (Deltasone -) 60 mg PO DAILY [facility] Last Admin: 11/12/17 09:23 Dose: 60 mg - Objective Vital Signs: Vital Signs Temperature 98 F 11/12/17 22:00 Pulse Rate 68 11/12/17 22:00 Respiratory Rate 18 11/12/17 22:00 Blood Pressure 127/73 11/12/17 22:00 O2 Sat by Pulse Oximetry (%) 97 11/12/17 21:00 Constitutional: Yes: No Distress, Calm Eyes: Yes: Conjunctiva Clear HENT: Yes: Atraumatic Neck: Yes: Supple Cardiovascular: Yes: Regular Rate and Rhythm Respiratory: Yes: CTA Bilaterally Gastrointestinal: Yes: Soft. No: Distention, Tenderness Genitourinary: No: CVA Tenderness - Left, CVA Tenderness - Right Musculoskeletal: No: Joint Stiffness, Joint Swelling Extremities: No: Cold, Cool, Cyanosis Edema: No Integumentary: No: Rash, Skin Tear, Venous Stasis Changes Neurological: Yes: WNL, Alert, Oriented ...Motor Strength: WNL Psychiatric: Yes: WNL, Alert, Oriented. No: Agitated, Suicidal Ideation Labs: CBC, BMP 11/11/17 06:40 11/11/17 06:40 INR, PTT INR 1.26 (0.82-1.09) H 11/11/17 06:40 Fibrinogen > 646.0 mg/dL (238-498) H 11/03/17 15:48 - ....Imaging Other: Report Reviewed Assessment/Plan 87 yo female hx of HTN MDS hemochromatosis admitted with temporal arteritis, h/ o PMR, s/p TA biopsy negatove for TA but clinical picture and labs c/w TA - on steroids tapering doses per rheum and neuro, feels better also s/p UTI; on antibiotics per ID tests and previous consults reviewed and d/w pt falls PFX DVT pfx TEDS SCDS d/w pt and staff, awaiting transfer to SNF to f/u as advised; see DC summary done 11/09
[2017-11-13] MEDS: INSULIN SLIDING SCALE (NOVOLOG) 1 VIAL SQ SCH ×4 (06:37→21:51)
[2017-11-13] MEDS ORDERED: INSULIN (NOVOLOG) ASPART 100 UNITS/ML 10ML VIAL ONE ×3 (07:22→20:43)
[2017-11-13] MEDS: predniSONE 20 MG TABLET (UD) PO SCH (09:57)
[2017-11-13] MEDS: LISINOPRIL 10 MG TABLET (FP) PO SCH (09:57)
[2017-11-13] MEDS: CALCIUM (OYSTER SHELL) 500 MG TABLET (FP) PO SCH (09:58)
[2017-11-13] MEDS: FOLIC ACID 1 MG TABLET (FP) PO SCH (09:58)
[2017-11-13] MEDS: CHOLECALCIFEROL (VITAMIN D3) 1,000 UNIT TABLET (FP) PO SCH (09:58)
[2017-11-13] MEDS: PANTOPRAZOLE 40 MG TABLET (FP) PO SCH (09:58)
[2017-11-13] MEDS: HEPARIN NA (PORCINE) 5,000 UNITS/ML 1ML VIAL SQ SCH ×2 (09:58→21:48)
[2017-11-13] MEDS: amLODIPine BESYLATE 5 MG TABLET (FP) PO SCH (09:58)
--- NOTE | 2017-11-13 13:00 | PN ---
Progress Note, Physician Chief Complaint: Events noted Not in distress History of Present Illness: Patient was seen and examined. Awake and alert. Chart was reviewed Denies chest pain, SOB or palpitations - Current Medication List Current Medications: Active Medications Acetaminophen (Tylenol -) 650 mg PO Q6H PRN PRN Reason: FEVER Amlodipine Besylate (Norvasc -) 5 mg PO DAILY [facility] Last Admin: 11/13/17 09:58 Dose: 5 mg Calcium Carbonate (Os-Issa 500mg -) 500 mg PO DAILY [facility] Last Admin: 11/13/17 09:58 Dose: 500 mg Cholecalciferol (Vitamin D3 -) 1,000 unit PO DAILY [facility] Last Admin: 11/13/17 09:58 Dose: 1,000 unit Folic Acid (Folic Acid -) 1 mg PO DAILY [facility] Last Admin: 11/13/17 09:58 Dose: 1 mg Gabapentin (Neurontin -) 400 mg PO HS PRN PRN Reason: INSOMNIA Last Admin: 11/09/17 10:38 Dose: 400 mg Heparin Sodium (Porcine) (Heparin -) 5,000 unit SQ BID [facility] Last Admin: 11/13/17 09:58 Dose: 5,000 unit Insulin Aspart (Novolog Vial Sliding Scale -) 1 vial SQ ACHS [facility] PRN Reason: Protocol Last Admin: 11/13/17 11:11 Dose: Not Given Levofloxacin (Levaquin -) 250 mg PO DAILY@0600 [facility] Last Admin: 11/13/17 06:37 Dose: 250 mg Lisinopril (Prinivil) 10 mg PO DAILY [facility] Last Admin: 11/13/17 09:57 Dose: 10 mg Pantoprazole Sodium (Protonix -) 40 mg PO DAILY [facility] Last Admin: 11/13/17 09:58 Dose: 40 mg Prednisone (Deltasone -) 60 mg PO DAILY [facility] Last Admin: 11/13/17 09:57 Dose: 60 mg - Objective Vital Signs: Vital Signs Temperature 97.9 F 11/13/17 10:00 Pulse Rate 67 11/13/17 10:00 Respiratory Rate 18 11/13/17 10:00 Blood Pressure 125/73 11/13/17 10:00 O2 Sat by Pulse Oximetry (%) 97 11/13/17 09:00 Eyes: Yes: PERRL HENT: Yes: Atraumatic Neck: Yes: Supple Cardiovascular: Yes: Regular Rate and Rhythm, S1, S2. No: Gallop Respiratory: Yes: CTA Bilaterally Gastrointestinal: Yes: Normal Bowel Sounds, Soft. No: Tenderness Edema: No Problem List - Problems (1) HTN (hypertension) Code(s): I10 - ESSENTIAL (PRIMARY) HYPERTENSION Qualifiers: Hypertension type: essential hypertension Qualified Code(s): I10 - Essential (primary) hypertension (2) Generalized weakness Code(s): R53.1 - WEAKNESS (3) Liver function test abnormality Code(s): R94.5 - ABNORMAL RESULTS OF LIVER FUNCTION STUDIES (4) Temporal arteritis Code(s): M31.6 - OTHER GIANT CELL ARTERITIS Assessment/Plan 1. Headache and visual deficit with elevation of ESR suggests temporal arteritis (negative biopsy) 2. Hypertension 3. PMR 4. Generalized weakness PLAN: 1. Continue current therapy with steroids for treatment of temporal arteritis even though biopsy is negative 2. Continue Lisinopril and Amlodipine as tolerated 3. No further cardiac intervention is warranted at this time Further plans are to follow Ronnie Chinchilla MD
[2017-11-14] MEDS: INSULIN SLIDING SCALE (NOVOLOG) 1 VIAL SQ SCH ×4 (06:04→21:18)
--- NOTE | 2017-11-14 08:38 | PN ---
Progress Note, Physician Chief Complaint: I was called by the CM yesterday that pt's insurance denied her transfer to SNF ; I did call the appeal # provided by CM at [phone] Johnson to review case. Case Denial #[id number]. I left 2 messages for him but so far I was not called back yet. This am I was informed by CM that [facility] was called and a decision will be made in 1-2 days Pt is currently OOB to chair; she walked 200 feet yesterday with PT but she said she pushed herself and then she was very tired and bed bound for few hours to recover after the walk; she has stairs in her house and she does not feel she can go home alone; pt's son is aware of the situation also. - Current Medication List Current Medications: Active Medications Acetaminophen (Tylenol -) 650 mg PO Q6H PRN PRN Reason: FEVER Amlodipine Besylate (Norvasc -) 5 mg PO DAILY [facility] Last Admin: 11/13/17 09:58 Dose: 5 mg Calcium Carbonate (Os-Issa 500mg -) 500 mg PO DAILY [facility] Last Admin: 11/13/17 09:58 Dose: 500 mg Cholecalciferol (Vitamin D3 -) 1,000 unit PO DAILY [facility] Last Admin: 11/13/17 09:58 Dose: 1,000 unit Folic Acid (Folic Acid -) 1 mg PO DAILY [facility] Last Admin: 11/13/17 09:58 Dose: 1 mg Gabapentin (Neurontin -) 400 mg PO HS PRN PRN Reason: INSOMNIA Last Admin: 11/09/17 10:38 Dose: 400 mg Heparin Sodium (Porcine) (Heparin -) 5,000 unit SQ BID [facility] Last Admin: 11/13/17 21:48 Dose: 5,000 unit Insulin Aspart (Novolog Vial Sliding Scale -) 1 vial SQ ACHS [facility] PRN Reason: Protocol Last Admin: 11/14/17 06:04 Dose: Not Given Lisinopril (Prinivil) 10 mg PO DAILY [facility] Last Admin: 11/13/17 09:57 Dose: 10 mg Pantoprazole Sodium (Protonix -) 40 mg PO DAILY [facility] Last Admin: 11/13/17 09:58 Dose: 40 mg Prednisone (Deltasone -) 60 mg PO DAILY [facility] Last Admin: 11/13/17 09:57 Dose: 60 mg - Objective Vital Signs: Vital Signs Temperature 97.9 F 11/14/17 05:16 Pulse Rate 55 L 11/14/17 05:16 Respiratory Rate 18 11/14/17 05:16 Blood Pressure 122/60 11/14/17 05:16 O2 Sat by Pulse Oximetry (%) 97 11/13/17 21:00 Constitutional: Yes: No Distress, Calm Eyes: Yes: Conjunctiva Clear HENT: Yes: Atraumatic Neck: Yes: Supple Cardiovascular: Yes: Regular Rate and Rhythm Respiratory: Yes: CTA Bilaterally Gastrointestinal: Yes: Soft. No: Distention, Tenderness Genitourinary: No: CVA Tenderness - Left, CVA Tenderness - Right Musculoskeletal: No: Joint Stiffness, Joint Swelling Extremities: No: Cold, Cool, Cyanosis Edema: No Integumentary: No: Rash, Venous Stasis Changes Neurological: Yes: WNL, Alert, Oriented ...Motor Strength: WNL Psychiatric: Yes: WNL, Alert, Oriented. No: Agitated, Suicidal Ideation Labs: CBC, BMP 11/11/17 06:40 11/11/17 06:40 INR, PTT INR 1.26 (0.82-1.09) H 11/11/17 06:40 Fibrinogen > 646.0 mg/dL (238-498) H 11/03/17 15:48 - ....Imaging Other: Report Reviewed Assessment/Plan 87 yo female hx of HTN MDS hemochromatosis admitted with temporal arteritis, h/ o PMR, s/p TA biopsy negatove for TA but clinical picture and labs c/w TA - on steroids tapering doses per rheum and neuro deconditioned asked rheum if could start tapering prednisone falls PFX DVT pfx TEDS SCDS d/w pt and staff, awaiting transfer to SNF to f/u as advised; see DC summary done 11/09
[2017-11-14] MEDS: HEPARIN NA (PORCINE) 5,000 UNITS/ML 1ML VIAL SQ SCH ×2 (10:50→21:17)
[2017-11-14] MEDS: CALCIUM (OYSTER SHELL) 500 MG TABLET (FP) PO SCH (10:50)
[2017-11-14] MEDS: PANTOPRAZOLE 40 MG TABLET (FP) PO SCH (10:50)
[2017-11-14] MEDS: FOLIC ACID 1 MG TABLET (FP) PO SCH (10:50)
[2017-11-14] MEDS: CHOLECALCIFEROL (VITAMIN D3) 1,000 UNIT TABLET (FP) PO SCH (10:50)
[2017-11-14] MEDS: LISINOPRIL 10 MG TABLET (FP) PO SCH (10:52)
[2017-11-14] MEDS: amLODIPine BESYLATE 5 MG TABLET (FP) PO SCH (10:52)
[2017-11-14] MEDS: predniSONE 20 MG TABLET (UD) PO SCH (11:44)
[2017-11-14] MEDS ORDERED: INSULIN (NOVOLOG) ASPART 100 UNITS/ML 10ML VIAL ONE (11:45)
--- NOTE | 2017-11-14 12:47 | PN ---
Progress Note, Physician History of Present Illness: Headache and visual disturbances resolved on steroids, right temporal artery biopsy was negative for TA. Ambulating in hallway. - Current Medication List Current Medications: Active Medications Acetaminophen (Tylenol -) 650 mg PO Q6H PRN PRN Reason: FEVER Amlodipine Besylate (Norvasc -) 5 mg PO DAILY [facility] Last Admin: 11/14/17 10:52 Dose: 5 mg Calcium Carbonate (Os-Issa 500mg -) 500 mg PO DAILY [facility] Last Admin: 11/14/17 10:50 Dose: 500 mg Cholecalciferol (Vitamin D3 -) 1,000 unit PO DAILY [facility] Last Admin: 11/14/17 10:50 Dose: 1,000 unit Folic Acid (Folic Acid -) 1 mg PO DAILY [facility] Last Admin: 11/14/17 10:50 Dose: 1 mg Gabapentin (Neurontin -) 400 mg PO HS PRN PRN Reason: INSOMNIA Last Admin: 11/09/17 10:38 Dose: 400 mg Heparin Sodium (Porcine) (Heparin -) 5,000 unit SQ BID [facility] Last Admin: 11/14/17 10:50 Dose: 5,000 unit Insulin Aspart (Novolog Vial Sliding Scale -) 1 vial SQ ACHS [facility] PRN Reason: Protocol Last Admin: 11/14/17 11:49 Dose: 2 units Lisinopril (Prinivil) 10 mg PO DAILY [facility] Last Admin: 11/14/17 10:52 Dose: 10 mg Pantoprazole Sodium (Protonix -) 40 mg PO DAILY [facility] Last Admin: 11/14/17 10:50 Dose: 40 mg Prednisone (Deltasone -) 40 mg PO DAILY [facility] - Objective Vital Signs: Vital Signs Temperature 97.9 F 11/14/17 05:16 Pulse Rate 55 L 11/14/17 05:16 Respiratory Rate 18 11/14/17 05:16 Blood Pressure 122/60 11/14/17 05:16 O2 Sat by Pulse Oximetry (%) 97 11/13/17 21:00 Constitutional: Yes: No Distress, Calm Neck: Yes: Supple Cardiovascular: Yes: Regular Rate and Rhythm Respiratory: Yes: Regular, CTA Bilaterally Gastrointestinal: Yes: Normal Bowel Sounds, Soft, Abdomen, Obese Edema: No Labs: CBC, BMP 11/11/17 06:40 11/11/17 06:40 INR, PTT INR 1.26 (0.82-1.09) H 11/11/17 06:40 Fibrinogen > 646.0 mg/dL (238-498) H 11/03/17 15:48 Problem List - Problems (1) Fatigue Code(s): R53.83 - OTHER FATIGUE Qualifiers: Fatigue type: unspecified Qualified Code(s): R53.83 - Other fatigue (2) HTN (hypertension) Code(s): I10 - ESSENTIAL (PRIMARY) HYPERTENSION Qualifiers: Hypertension type: essential hypertension Qualified Code(s): I10 - Essential (primary) hypertension (3) Temporal arteritis Code(s): M31.6 - OTHER GIANT CELL ARTERITIS (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 Headache and visual deficit with elevation of ESR suggests temporal arteritis despite negative biopsy 2. Hypertension 3. PMR 4. Dysproteinemia PLAN: 1. Continue steroid taper with GI protection 2. Continue Lisinopril 10 qd and Norvasc 5 qd 3. Await SNF placement 4. DVT and GI prophylaxis
[2017-11-15] MEDS: INSULIN SLIDING SCALE (NOVOLOG) 1 VIAL SQ SCH ×4 (06:22→22:03)
[2017-11-15] MEDS ORDERED: INSULIN (NOVOLOG) ASPART 100 UNITS/ML 10ML VIAL ONE ×3 (06:30→22:01)
--- NOTE | 2017-11-15 08:12 | PN ---
Progress Note, Physician Chief Complaint: no new c/o awaiting [facility] decision for DC planning; wants to go to SNF for rehab - Current Medication List Current Medications: Active Medications Acetaminophen (Tylenol -) 650 mg PO Q6H PRN PRN Reason: FEVER Amlodipine Besylate (Norvasc -) 5 mg PO DAILY [facility] Last Admin: 11/14/17 10:52 Dose: 5 mg Calcium Carbonate (Os-Issa 500mg -) 500 mg PO DAILY [facility] Last Admin: 11/14/17 10:50 Dose: 500 mg Cholecalciferol (Vitamin D3 -) 1,000 unit PO DAILY [facility] Last Admin: 11/14/17 10:50 Dose: 1,000 unit Folic Acid (Folic Acid -) 1 mg PO DAILY [facility] Last Admin: 11/14/17 10:50 Dose: 1 mg Gabapentin (Neurontin -) 400 mg PO HS PRN PRN Reason: INSOMNIA Last Admin: 11/09/17 10:38 Dose: 400 mg Heparin Sodium (Porcine) (Heparin -) 5,000 unit SQ BID [facility] Last Admin: 11/14/17 21:17 Dose: 5,000 unit Insulin Aspart (Novolog Vial Sliding Scale -) 1 vial SQ ACHS [facility] PRN Reason: Protocol Last Admin: 11/15/17 06:22 Dose: Not Given Lisinopril (Prinivil) 10 mg PO DAILY [facility] Last Admin: 11/14/17 10:52 Dose: 10 mg Pantoprazole Sodium (Protonix -) 40 mg PO DAILY [facility] Last Admin: 11/14/17 10:50 Dose: 40 mg Prednisone (Deltasone -) 40 mg PO DAILY [facility] - Objective Vital Signs: Vital Signs Temperature 97.5 F L 11/15/17 05:27 Pulse Rate 73 11/15/17 05:27 Respiratory Rate 18 11/15/17 05:27 Blood Pressure 144/94 11/15/17 05:27 O2 Sat by Pulse Oximetry (%) 98 11/14/17 21:00 Constitutional: Yes: No Distress, Calm Eyes: Yes: Conjunctiva Clear HENT: Yes: Atraumatic Neck: Yes: Supple Cardiovascular: Yes: Regular Rate and Rhythm Respiratory: Yes: CTA Bilaterally Gastrointestinal: Yes: Soft. No: Distention, Tenderness Genitourinary: No: CVA Tenderness - Left, CVA Tenderness - Right Musculoskeletal: No: Joint Stiffness, Joint Swelling Extremities: No: Cold, Cool, Cyanosis Edema: No Integumentary: No: Rash, Venous Stasis Changes Neurological: Yes: WNL, Alert, Oriented ...Motor Strength: WNL Psychiatric: Yes: WNL, Alert, Oriented. No: Agitated, Suicidal Ideation Labs: CBC, BMP 11/11/17 06:40 11/11/17 06:40 INR, PTT INR 1.26 (0.82-1.09) H 11/11/17 06:40 Fibrinogen > 646.0 mg/dL (238-498) H 11/03/17 15:48 - ....Imaging Other: Report Reviewed Assessment/Plan 87 yo female hx of HTN MDS hemochromatosis admitted with temporal arteritis, h/ o PMR, s/p TA biopsy negatove for TA but clinical picture and labs c/w TA - on steroids tapering doses per rheum and neuro deconditioned falls PFX DVT pfx TEDS SCDS d/w pt and staff, awaiting transfer to SNF decision to f/u as advised; see DC summary done 11/09
[2017-11-15] MEDS: predniSONE 20 MG TABLET (UD) PO SCH (09:29)
[2017-11-15] MEDS: LISINOPRIL 10 MG TABLET (FP) PO SCH (09:29)
[2017-11-15] MEDS: CHOLECALCIFEROL (VITAMIN D3) 1,000 UNIT TABLET (FP) PO SCH (09:29)
[2017-11-15] MEDS: amLODIPine BESYLATE 5 MG TABLET (FP) PO SCH (09:29)
[2017-11-15] MEDS: PANTOPRAZOLE 40 MG TABLET (FP) PO SCH (09:29)
[2017-11-15] MEDS: FOLIC ACID 1 MG TABLET (FP) PO SCH (09:29)
[2017-11-15] MEDS: HEPARIN NA (PORCINE) 5,000 UNITS/ML 1ML VIAL SQ SCH ×2 (09:29→21:57)
[2017-11-15] MEDS: CALCIUM (OYSTER SHELL) 500 MG TABLET (FP) PO SCH (09:29)
--- NOTE | 2017-11-15 10:59 | PN ---
Progress Note, Physician History of Present Illness: Headache and visual disturbances resolved on steroids, right temporal artery biopsy was negative for TA. Ambulating in hallway with PT assistance. - Current Medication List Current Medications: Active Medications Acetaminophen (Tylenol -) 650 mg PO Q6H PRN PRN Reason: FEVER Amlodipine Besylate (Norvasc -) 5 mg PO DAILY [facility] Last Admin: 11/15/17 09:29 Dose: 5 mg Calcium Carbonate (Os-Issa 500mg -) 500 mg PO DAILY [facility] Last Admin: 11/15/17 09:29 Dose: 500 mg Cholecalciferol (Vitamin D3 -) 1,000 unit PO DAILY [facility] Last Admin: 11/15/17 09:29 Dose: 1,000 unit Folic Acid (Folic Acid -) 1 mg PO DAILY [facility] Last Admin: 11/15/17 09:29 Dose: 1 mg Gabapentin (Neurontin -) 400 mg PO HS PRN PRN Reason: INSOMNIA Last Admin: 11/09/17 10:38 Dose: 400 mg Heparin Sodium (Porcine) (Heparin -) 5,000 unit SQ BID [facility] Last Admin: 11/15/17 09:29 Dose: 5,000 unit Insulin Aspart (Novolog Vial Sliding Scale -) 1 vial SQ ACHS [facility] PRN Reason: Protocol Last Admin: 11/15/17 06:22 Dose: Not Given Lisinopril (Prinivil) 10 mg PO DAILY [facility] Last Admin: 11/15/17 09:29 Dose: 10 mg Pantoprazole Sodium (Protonix -) 40 mg PO DAILY [facility] Last Admin: 11/15/17 09:29 Dose: 40 mg Prednisone (Deltasone -) 40 mg PO DAILY [facility] Last Admin: 11/15/17 09:29 Dose: 40 mg - Objective Vital Signs: Vital Signs Temperature 98.0 F 11/15/17 09:27 Pulse Rate 67 11/15/17 09:27 Respiratory Rate 18 11/15/17 09:27 Blood Pressure 128/57 11/15/17 09:27 O2 Sat by Pulse Oximetry (%) 98 11/14/17 21:00 Constitutional: Yes: No Distress, Calm Neck: Yes: Supple Cardiovascular: Yes: Regular Rate and Rhythm Respiratory: Yes: Regular, Diminished Gastrointestinal: Yes: Normal Bowel Sounds, Soft, Abdomen, Obese Edema: No Labs: CBC, BMP 11/11/17 06:40 11/11/17 06:40 INR, PTT INR 1.26 (0.82-1.09) H 11/11/17 06:40 Fibrinogen > 646.0 mg/dL (238-498) H 11/03/17 15:48 Problem List - Problems (1) Fatigue Code(s): R53.83 - OTHER FATIGUE Qualifiers: Fatigue type: unspecified Qualified Code(s): R53.83 - Other fatigue (2) HTN (hypertension) Code(s): I10 - ESSENTIAL (PRIMARY) HYPERTENSION Qualifiers: Hypertension type: essential hypertension Qualified Code(s): I10 - Essential (primary) hypertension (3) Temporal arteritis Code(s): M31.6 - OTHER GIANT CELL ARTERITIS (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 Headache and visual deficit with elevation of ESR suggests temporal arteritis despite negative biopsy 2. Hypertension 3. PMR 4. Dysproteinemia PLAN: 1. Continue steroid taper with GI protection 2. Continue Lisinopril 10 qd and Norvasc 5 qd 3. Await SNF placement 4. DVT and GI prophylaxis
[2017-11-16] MEDS: INSULIN SLIDING SCALE (NOVOLOG) 1 VIAL SQ SCH ×2 (06:29→11:19)
--- NOTE | 2017-11-16 08:52 | PN ---
Progress Note, Physician Chief Complaint: denied by [facility] to go to Rehab; pt walked 200 feet with PT; she would still like to go to in rehab and she said she and her son will pay for it; d/w CM DC and f/u as advised; scripts done - Current Medication List Current Medications: Active Medications Acetaminophen (Tylenol -) 650 mg PO Q6H PRN PRN Reason: FEVER Amlodipine Besylate (Norvasc -) 5 mg PO DAILY [facility] Last Admin: 11/15/17 09:29 Dose: 5 mg Calcium Carbonate (Os-Issa 500mg -) 500 mg PO DAILY [facility] Last Admin: 11/15/17 09:29 Dose: 500 mg Cholecalciferol (Vitamin D3 -) 1,000 unit PO DAILY [facility] Last Admin: 11/15/17 09:29 Dose: 1,000 unit Folic Acid (Folic Acid -) 1 mg PO DAILY [facility] Last Admin: 11/15/17 09:29 Dose: 1 mg Gabapentin (Neurontin -) 400 mg PO HS PRN PRN Reason: INSOMNIA Last Admin: 11/09/17 10:38 Dose: 400 mg Heparin Sodium (Porcine) (Heparin -) 5,000 unit SQ BID [facility] Last Admin: 11/15/17 21:57 Dose: 5,000 unit Insulin Aspart (Novolog Vial Sliding Scale -) 1 vial SQ ACHS [facility] PRN Reason: Protocol Last Admin: 11/16/17 06:29 Dose: Not Given Lisinopril (Prinivil) 10 mg PO DAILY [facility] Last Admin: 11/15/17 09:29 Dose: 10 mg Pantoprazole Sodium (Protonix -) 40 mg PO DAILY [facility] Last Admin: 11/15/17 09:29 Dose: 40 mg Prednisone (Deltasone -) 40 mg PO DAILY [facility] Last Admin: 11/15/17 09:29 Dose: 40 mg - Objective Vital Signs: Vital Signs Temperature 97.6 F 11/16/17 06:00 Pulse Rate 52 L 11/16/17 06:00 Respiratory Rate 18 11/16/17 06:00 Blood Pressure 135/52 11/16/17 06:00 O2 Sat by Pulse Oximetry (%) 97 11/15/17 21:00 Constitutional: Yes: No Distress, Calm Eyes: Yes: Conjunctiva Clear HENT: Yes: Atraumatic Neck: Yes: Supple Cardiovascular: Yes: Regular Rate and Rhythm Respiratory: Yes: CTA Bilaterally Gastrointestinal: Yes: Soft. No: Distention, Tenderness Genitourinary: No: CVA Tenderness - Left, CVA Tenderness - Right Musculoskeletal: No: Joint Stiffness, Joint Swelling Extremities: No: Cold, Cool, Cyanosis Edema: No Integumentary: No: Rash, Venous Stasis Changes Neurological: Yes: WNL, Alert, Oriented ...Motor Strength: WNL Psychiatric: Yes: WNL, Alert, Oriented. No: Agitated, Suicidal Ideation Labs: CBC, BMP 11/11/17 06:40 11/11/17 06:40 INR, PTT INR 1.26 (0.82-1.09) H 11/11/17 06:40 Fibrinogen > 646.0 mg/dL (238-498) H 11/03/17 15:48 - ....Imaging Other: Report Reviewed Assessment/Plan 87 yo female hx of HTN MDS hemochromatosis admitted with temporal arteritis, h/ o PMR, s/p TA biopsy negatove for TA but clinical picture and labs c/w TA - on steroids tapering doses per rheum and neuro deconditioned falls PFX DVT pfx TEDS SCDS d/w pt and staff, plan to go to SNF for PT rehab as self pay, pt and son are aware of the insurance and [facility] reviews decisions to f/u as advised; see DC summary done 11/09
--- NOTE | 2017-11-16 09:55 | PN ---
Progress Note, Physician History of Present Illness: Headache and visual disturbances resolved on steroids, right temporal artery biopsy was negative for TA. Ambulating in hallway with PT assistance. - Current Medication List Current Medications: Active Medications Acetaminophen (Tylenol -) 650 mg PO Q6H PRN PRN Reason: FEVER Amlodipine Besylate (Norvasc -) 5 mg PO DAILY [facility] Last Admin: 11/15/17 09:29 Dose: 5 mg Calcium Carbonate (Os-Issa 500mg -) 500 mg PO DAILY [facility] Last Admin: 11/15/17 09:29 Dose: 500 mg Cholecalciferol (Vitamin D3 -) 1,000 unit PO DAILY [facility] Last Admin: 11/15/17 09:29 Dose: 1,000 unit Folic Acid (Folic Acid -) 1 mg PO DAILY [facility] Last Admin: 11/15/17 09:29 Dose: 1 mg Gabapentin (Neurontin -) 400 mg PO HS PRN PRN Reason: INSOMNIA Last Admin: 11/09/17 10:38 Dose: 400 mg Heparin Sodium (Porcine) (Heparin -) 5,000 unit SQ BID [facility] Last Admin: 11/15/17 21:57 Dose: 5,000 unit Insulin Aspart (Novolog Vial Sliding Scale -) 1 vial SQ ACHS [facility] PRN Reason: Protocol Last Admin: 11/16/17 06:29 Dose: Not Given Lisinopril (Prinivil) 10 mg PO DAILY [facility] Last Admin: 11/15/17 09:29 Dose: 10 mg Pantoprazole Sodium (Protonix -) 40 mg PO DAILY [facility] Last Admin: 11/15/17 09:29 Dose: 40 mg Prednisone (Deltasone -) 40 mg PO DAILY [facility] Last Admin: 11/15/17 09:29 Dose: 40 mg - Objective Vital Signs: Vital Signs Temperature 97.6 F 11/16/17 06:00 Pulse Rate 52 L 11/16/17 06:00 Respiratory Rate 18 11/16/17 06:00 Blood Pressure 135/52 11/16/17 06:00 O2 Sat by Pulse Oximetry (%) 97 11/15/17 21:00 Constitutional: Yes: No Distress, Calm Neck: Yes: Supple Cardiovascular: Yes: Regular Rate and Rhythm Respiratory: Yes: Regular, CTA Bilaterally Gastrointestinal: Yes: Normal Bowel Sounds, Soft Edema: No Labs: CBC, BMP 11/11/17 06:40 11/11/17 06:40 INR, PTT INR 1.26 (0.82-1.09) H 11/11/17 06:40 Fibrinogen > 646.0 mg/dL (238-498) H 11/03/17 15:48 Problem List - Problems (1) Fatigue Code(s): R53.83 - OTHER FATIGUE Qualifiers: Fatigue type: unspecified Qualified Code(s): R53.83 - Other fatigue (2) HTN (hypertension) Code(s): I10 - ESSENTIAL (PRIMARY) HYPERTENSION Qualifiers: Hypertension type: essential hypertension Qualified Code(s): I10 - Essential (primary) hypertension (3) Temporal arteritis Code(s): M31.6 - OTHER GIANT CELL ARTERITIS (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 Headache and visual deficit with elevation of ESR suggests temporal arteritis despite negative biopsy 2. Hypertension 3. PMR 4. Dysproteinemia PLAN: 1. Continue steroid taper with GI protection 2. Continue Lisinopril 10 qd and Norvasc 5 qd 3. Await SNF placement 4. DVT and GI prophylaxis
[2017-11-16] MEDS: PANTOPRAZOLE 40 MG TABLET (FP) PO SCH (10:17)
[2017-11-16] MEDS: predniSONE 20 MG TABLET (UD) PO SCH (10:17)
[2017-11-16] MEDS: LISINOPRIL 10 MG TABLET (FP) PO SCH (10:17)
[2017-11-16] MEDS: CALCIUM (OYSTER SHELL) 500 MG TABLET (FP) PO SCH (10:17)
[2017-11-16] MEDS: amLODIPine BESYLATE 5 MG TABLET (FP) PO SCH (10:17)
[2017-11-16] MEDS: HEPARIN NA (PORCINE) 5,000 UNITS/ML 1ML VIAL SQ SCH (10:17)
[2017-11-16] MEDS: FOLIC ACID 1 MG TABLET (FP) PO SCH (10:17)
[2017-11-16] MEDS: CHOLECALCIFEROL (VITAMIN D3) 1,000 UNIT TABLET (FP) PO SCH (10:17)
--- NOTE | 2017-11-16 13:17 | PN ---
Progress Note (short form) - Note Progress Note: Patient seen and examined Fatigues easily on ambulation SOB on exertion Last Vital Signs Temp Pulse Resp BP Pulse Ox 98.0 F 70 18 138/82 98 11/16/17 10:00 11/16/17 10:00 11/16/17 10:00 11/16/17 10:00 11/16/17 09:00 HEENT: MERARY, EOM Intact Oropharynx: No thrush, No mucositis Cor: RSR, systolic murmur Lungs: Clear to P&A Abd: Soft, Normal bowel sounds, No organomegaly Ext:No significant edema Skin: No rashes, Integument intact CBC, BMP 11/11/17 06:40 11/11/17 06:40 Impression: Headache and clinical picture of Temporal arteritis Negative T.A. Biopsy Fatigue PMR Dysproteinemia Social service issues Plan: Slow taper of sterois Monitoring of protein studies Resolution of Social service issues.
[2017-11-16 13:22] VITALS: BP 138/72; PULSE 79; TEMP 98.1
== END 2017-11-16 14:43 | DRG 516 ==
LOC: JER 16:10 → JERBED 21:25 → J7W 11-03 02:41
PROVIDERS: ADMIT Internal Medicine; ATTEND Internal Medicine
PROC: 03BS0ZX Excision of Right Temporal Artery, Open Approach, Diagnostic (ICD-10-PCS; principal; 2017-11-06 14:00)
DX: M31.6 Other giant cell arteritis (principal); N39.0 Urinary tract infection, site not specified; J98.11 Atelectasis; I10 Essential (primary) hypertension; M35.3 Polymyalgia rheumatica; E83.119 Hemochromatosis, unspecified; R94.5 Abnormal results of liver function studies; R31.9 Hematuria, unspecified; D46.9 Myelodysplastic syndrome, unspecified; M19.90 Unspecified osteoarthritis, unspecified site; K76.0 Fatty (change of) liver, not elsewhere classified; R63.4 Abnormal weight loss; Z68.32 Body mass index [BMI] 32.0-32.9, adult; B96.89 Other specified bacterial agents as the cause of diseases classified elsewhere; E88.09 Other disorders of plasma-protein metabolism, not elsewhere classified; E16.0 Drug-induced hypoglycemia without coma; T49.6X5A Adverse effect of otorhinolaryngological drugs and preparations, initial encounter; G25.2 Other specified forms of tremor; H53.2 Diplopia
CPT/HCPCS: 36415; 36430; 70551-TC; 71045-TC-FY; 71250-TC; 74176-TC; 80048; 80053; 80074; 80076; 81003; 81015; 82105; 82140; 82550; 82607; 82728; 82747; 82784; 82962; 83516; 83540; 83550; 83605; 83615; 83735; 83880; 84155; 84156; 84157; 84165; 84484; 85014; 85025; 85379; 85384; 85610; 85651; 85730; 86038; 86140; 86225; 86334; 86431; 86618; 86850; 86900; 86901; 87040; 87086; 87186; 87804; 88305-TC; 93005; 93010; 94760; 97116-GP; 97161-GP; 99284-25; J1644; J7030; P9017